=== PATIENT | male | born 1940 | race Caucasian/White ===

== ENCOUNTER 2019-11-02 15:41 | Emergency (ER) | payer MEDICARE, OTHER ==
[~2019-11-02] VITALS: Ht 170.2 cm; Wt 83.0 kg
--- OUTSIDE RECORDS SUMMARY | ~2019-11-02 | XMS | Clinical Summary ---
Demographics + + + | Address | [address] | | | [place] [address] | + + + | Home Phone | | + + + | Preferred Language | Unknown | + + + | Marital Status | | + + + | Evangelical Affiliation | 1028 | + + + | Race | Unknown | + + + | Ethnic Group | Unknown | + + + Author + + + | Author | [facility] | | | and [place] | + + + | Organization | [facility] | | | and [place] | + + + | Address | Unknown | + + + | Phone | Unavailable | + + + Support + + + + + | Name | Relationship | Address | Phone | + + + + + | Pina Momin | ECON | [address] | | | | | [place] [address] | | + + + + + Care Team Providers + +------+ + | Care Meat Wrapper Name | Role | Phone | + +------+ + | Jorge Diaz DO | PCP | | + +------+ + Allergies + + + + + + | Active Allergy | Reactions | Severity | Noted | Comments | | | | | Date | | + + + + + + | Atorvastatin | Other (See Comments) | Low | 08/10/20 | Myalgia | | | | | 17 | | + + + + + + | Desipramine | Other (See Comments) | Low | 08/10/20 | Prostadynia | | | | | 17 | | + + + + + + | Lisinopril | Other (See Comments) | Low | 08/10/20 | cough | | | | | 17 | | + + + + + + Medications + + + +---------+------+------+-------+ | Medication | Sig | Dispensed | Refills | Star | End | Statu | | | | | | t | Date | s | | | | | | Date | | | + + + +---------+------+------+-------+ | olmesartan | Take 20 mg by mouth | | 0 | | | Activ | | (BENICAR) 20 mg | Daily. | | | | | e | | tablet | | | | | | | + + + +---------+------+------+-------+ | Multiple Vitamin | Take by mouth. | | 0 | | | Activ | | (MULTI-VITAMINS PO) | | | | | | e | + + + +---------+------+------+-------+ | finasteride | Take 5 mg by mouth | | 0 | | | Activ | | (PROSCAR) 5 mg | Daily. | | | | | e | | tablet | | | | | | | + + + +---------+------+------+-------+ | omeprazole | Take 20 mg by mouth | | 0 | | | Activ | | (PRILOSEC) 20 mg | every morning | | | | | e | | capsule | (before breakfast). | | | | | | + + + +---------+------+------+-------+ | simvastatin | Take 5 mg by mouth | | 0 | | | Activ | | (ZOCOR) 5 mg tablet | nightly. | | | | | e | + + + +---------+------+------+-------+ | terazosin (HYTRIN) | Take 5 mg by mouth | | 0 | | | Activ | | 5 mg capsule | nightly. | | | | | e | + + + +---------+------+------+-------+ | sertraline | Take 100 mg by mouth | | 0 | | | Activ | | (ZOLOFT) 100 mg | Daily. | | | | | e | | tablet | | | | | | | + + + +---------+------+------+-------+ | aspirin 81 MG | Take 81 mg by mouth | | 0 | | | Activ | | tablet | Daily. | | | | | e | + + + +---------+------+------+-------+ Active Problems + + + | Problem | Noted Date | + + + | S/P lumbar fusion | 09/08/2017 | + + + | Hard of Hearing - Hearing Aids Worn | 09/07/2017 | + + + + + | Overview: hearing aids | + + + + + | H/O TEMO Total hip arthroplasty, Bilateral | 09/07/2017 | + + + | H/O Detached Retina Repair | 09/07/2017 | + + + | Scoliosis of lumbar spine | 09/07/2017 | + + + + + | Overview: Formatting of this note might be different from the | | original.RADIOGRAPHIC REVIEW:The patient's imaging was reviewed | | in detail with the patient today during the visit. The MRI of | | the lumbar spine from 05/24/17 demonstrates diffuse scoliosis with | | spondylolisthesis L4-5. Thre is spondylosis L2-3 with severe | | central stenosis. There is tethering of the cauda equina at that | | level. Lumbar flexion and extension views show spondylolisthesis | | L3-4 and L4-5.NEUROSURGICAL DIAGNOSES: Encounter Diagnoses | | Name Primary? | | Scoliosis of lumbar spine, unspecified scoliosis type Yes | | Spondylolisthesis of lumbar region | | Spinal stenosis of lumbar region, unspecified whether | | neurogenic claudication present | | Lumbar radiculopathy | | Chronic midline low back pain with bilateral sciatica | | Neurogenic claudication | | Weakness of lower extremity, unspecified laterality | | Weakness of lower extremity, unspecified laterality | + + + + + | Depression | 09/07/2017 | + + + | Risk factors for obstructive sleep apnea - Stop Bang Score 5 | 09/07/2017 | + + + | Spinal stenosis of lumbar region | | + + + | Hypertension | | + + + Family History + + +------+ + | Medical History | Relation | Name | Comments | + + +------+ + | Osteoarthritis | Brother | | | + + +------+ + | No known problems | Child | | | + + +------+ + | No known problems | Child | | | + + +------+ + | Heart disease | Father | | | + + +------+ + | High blood pressure | Father | | | + + +------+ + | Prostate cancer | Maternal | | | | | Grandfath | | | | | er | | | + + +------+ + | Dementia | Maternal | | | | | Grandmoth | | | | | er | | | + + +------+ + | Alcohol abuse | Maternal | | | | | Uncle | | | + + +------+ + | Tobacco Use | Maternal | | | | | Uncle | | | + + +------+ + | Broken bones | Mother | | Hip | + + +------+ + | Cancer | Mother | | | + + +------+ + | Mental illness | Other | | | + + +------+ + | No known problems | Paternal | | | | | Grandfath | | | | | er | | | + + +------+ + | Diabetes | Paternal | | | | | Grandmoth | | | | | er | | | + + +------+ + | Obesity | Paternal | | | | | Grandmoth | | | | | er | | | + + +------+ + | Arthritis | Sister | | | + + +------+ + | Heart disease | Sister | | | + + +------+ + | Tobacco Use | Sister | | | + + +------+ + + +------+ + + | Relation | Name | Status | Comments | + +------+ + + | Brother | | Alive | | + +------+ + + | Child | | Alive | | + +------+ + + | Child | | Alive | | + +------+ + + | Father | | | | | | | (Age | | | | | 54) | | + +------+ + + | Maternal Grandfather | | | | | | | (Age | | | | | 78) | | + +------+ + + | Maternal Grandmother | | | | + +------+ + + | Maternal Uncle | | | | + +------+ + + | Mother | | Alive | | + +------+ + + | Other | | | | + +------+ + + | Paternal Grandfather | | | | + +------+ + + | Paternal Grandmother | | | | | | | (Age | | | | | 80) | | + +------+ + + | Sister | | Alive | | + +------+ + + | Sister | | | | | | | (Age | | | | | 50) | | + +------+ + + Social History + +-------+ +--------+------+ | Tobacco Use | Types | Packs/Day | Years | Date | | | | | Used | | + +-------+ +--------+------+ | Never Smoker | | | | | + +-------+ +--------+------+ + +---+---+---+ | Smokeless Tobacco: | | | | | Never Used | | | | + +---+---+---+ + + +---------+ + | Alcohol Use | Drinks/Week | oz/Week | Comments | + + +---------+ + | Yes | 14 Glasses of wine | 14.0 | | + + +---------+ + + + + | Sex Assigned at | Date Recorded | | | | + + + | Not on file | | + + + + + + + | Job Start Date | Occupation | Industry | + + + + | Not on file | Not on file | Not on file | + + + + + + + + | Travel History | Travel Start | Travel End | + + + + + + | No recent travel history available. | + + Last Filed Vital Signs + + + + + | Vital Sign | Reading | Time Taken | Comments | + + + + + | Blood Pressure | 125/71 | 10/12/2017 10:24 AM | | | | | PST | | + + + + + | Pulse | 66 | 10/12/2017 10:24 AM | | | | | PST | | + + + + + | Temperature | 35.7 C (96.3 F) | 09/10/2017 8:07 AM | | | | | PDT | | + + + + + | Respiratory Rate | 17 | 09/10/2017 8:07 AM | | | | | PDT | | + + + + + | Oxygen Saturation | 93% | 09/10/2017 8:07 AM | | | | | PDT | | + + + + + | Inhaled Oxygen | - | - | | | Concentration | | | | + + + + + | Weight | 86.6 kg (190 lb 14.7 | 10/12/2017 10:24 AM | | | | oz) | PST | | + + + + + | Height | 172.7 cm (5' 8") | 10/12/2017 10:24 AM | | | | | PST | | + + + + + | Body Mass Index | 29.03 | 10/12/2017 10:24 AM | | | | | PST | | + + + + + Plan of Treatment + + + + + | Health Maintenance | Due Date | Last Done | Comments | + + + + + | Vaccine: | | | | | Dtap/Tdap/Td (1 - | 8 | | | | Tdap) | | | | + + + + + | Vaccine: | | | | | Pneumococcal 65+ (1 | 4 | | | | of 2 - PCV13) | | | | + + + + + | Vaccine: Zoster (2 | | 08/08/2009 | | | of 3) | 9 | | | + + + + + | Adult Annual | | | | | Wellness Visit | 5 | | | + + + + + | Vaccine: Influenza | | 08/30/2018, 08/18/2016, | | | (#1) | 9 | 08/29/2015, Additional history | | | | | exists | | + + + + + Implants + +--------+--------+ +--------+--------+--------+ | Implanted | Type | Area | Manufacture | Device | Shelf | Model | | | | | r | | Expira | / | | | | | | Identi | tion | Serial | | | | | | fier | Date | / Lot | + +--------+--------+ +--------+--------+--------+ | Imp Spn Puneet Sext Ti | Generi | Left: | [employer] - | | | [id number] | | [id number] - | c | Spine | MEDT | | | [id number] | | [id number]: Qty: 2 on | | Lumbar | | | | / | | 09/08/2017 by Ihsan Chavez | | | | | | | | DO [place] at [facility] | | | | | | | | [facility] | | | | | | | + +--------+--------+ +--------+--------+--------+ | Graft Infuse Bone Kit Xxs - | Graft | Left: | [employer] - | | 08/13/ | [id number] | | SnaImplanted: Qty: 1 on | | Spine | MEDT | | 2018 | 0 /NA | | 09/08/2017 by Ihsan Chavez | | Lumbar | | | | [id number] | | ADO at [facility] | | | | | | [id number] | | [facility] | | | | | | | + +--------+--------+ +--------+--------+--------+ | Screw Cn Mas [id number] Cc - | Screw | Left: | [employer] - | | | [id number] | | [id number]: Qty: 4 on | | Spine | MEDT | | | [id number] | | 09/08/2017 by Ihsan Chavez | | Lumbar | | | | / / | | DO [place] at [facility] | | | | | | | | [facility] | | | | | | | + +--------+--------+ +--------+--------+--------+ | Set Scrw Ns G5 Brk Off Ti | Screw | Left: | [employer] - | | | [id number] | | 4.75 - [id number]: | | Spine | MEDT | | | 0 / / | | Qty: 4 on 09/08/2017 by | | Lumbar | | | | | | Ihsan Chavez DO at [facility] | | | | | | | | [facility] | | [facility] | | | | | | | + +--------+--------+ +--------+--------+--------+ | Transcontinental | | Left: | GLOBUS | | | [id number] | | SpacerImplanted: Qty: 1 on | | Spine | MEDICAL - | | | | | 09/08/2017 by Ihsan Chavez | | Lumbar | GLBU | | | | | A, DO at [facility] | | | | | | | | [facility] | | | | | | | + +--------+--------+ +--------+--------+--------+ Results Not on filefrom Last 3 Months Insurance + +--------+ +--------+ + +--------+ | Payer | Benefi | Subscriber | Effect | Phone | Address | Type | | | t Plan | ID | bruna | | | | | | / | | Dates | | | | | | Group | | | | | | + +--------+ +--------+ + +--------+ | MEDICARE | MEDICA | [id number] | 03/14/20 | [phone] | | Medica | | | RE | | 04-Pre | 5 | | re | | | PART A | | sent | | | | | | AND B | | | | | | + +--------+ +--------+ + +--------+ | MODA | MODA | [id number] | 11/14/19 | [phone] | [address] | Indemn | | | HEALTH | | 17-Pre | 9 | [phone] | ity | | | MDCR | | sent | | [place], | | | | [place] | | | | [place] [address] | | + +--------+ +--------+ + +--------+ + +--------+ +--------+ + + | Guarantor Name | Accoun | Relation to | Date | Phone | Billing Address | | | t Type | Patient | of | | | | | | | | | | + +--------+ +--------+ + + | Raciel Momin | Person | Self | [birth year] | [address] | | | al/Fam | | 1940 | [phone] | [place] [address] | | | mariangel | | | 2 (Home) | | + +--------+ +--------+ + + Advance Directives + + + + + | Type | Date Recorded | Patient | Explanation | | | | Craft Worker | | + + + + + | Power of | | | | | Photogrammetric Surveyor | | | | + + + + + | Advance | 08/08/2017 2:46 | | @ home | | Directive | PM | | | + + + + + + + + + + | Code Status | Date | Date | Comments | | | Activated | Inactivated | | + + + + + | Full Code | 09/08/2017 | 09/10/2017 | | | | 12:27 PM | 4:07 PM | | + + + + +
--- OUTSIDE RECORDS SUMMARY | ~2019-11-02 | XMS | Encounter Summary ---
Demographics + + + | Address | [address] | | | [place] [address] | + + + | Home Phone | | + + + | Preferred Language | Unknown | + + + | Marital Status | | + + + | Adventism Affiliation | 1028 | + + + | Race | Unknown | + + + | Ethnic Group | Unknown | + + + Author + + + | Author | [facility] | | | and [place] | + + + | Organization | [facility] | | | and [place] | + + + | Address | Unknown | + + + | Phone | Unavailable | + + + Support + + + + + | Name | Relationship | Address | Phone | + + + + + | Pina Momin | ECON | [address] | | | | | [place] [address] | | + + + + + Care Team Providers + +------+ + | Care Cement Mason Name | Role | Phone | + +------+ + | Dave Franco MD | PCP | | + +------+ + Reason for Visit + + + | Reason | Comments | + + + | Back Pain | lower back pain. | + + + Evaluate & Treat (Routine) +--------+--------+ + + + + | Status | Reason | Specialty | Diagnoses / | Referred By | Referred To | | | | | Procedures | Contact | Contact | +--------+--------+ + + + + | Closed | | Neurosurgery | Diagnoses | Richard, | Kathy, | | | | | Low back | Donavan Moraes, | Ihsan Tomlin DO | | | | | pain Lower | DO [address] | [address] | | | | | extremity | [facility] | [address] | | | | | weakness | [address] | [place] | | | | | Procedures | [address], | [address] Phone: | | | | | OR OFFICE | [place] | [phone] | | | | | CONSULTATION | [address] | Fax: | | | | | NEW/ESTAB | Phone: | [phone] | | | | | PATIENT 59 | [phone] | | | | | | MIN | | | +--------+--------+ + + + + Encounter Details +--------+---------+ + + + | Date | Type | Department | Care Team | Description | +--------+---------+ + + + | 08/22/ | Office | [facility] | Ihsan Chavez, | Scoliosis of lumbar | | 2017 | Visit | NEUR[address]URGERY [address] | DO [address] | spine, unspecified | | | | [address] | [address] [place], [place] | scoliosis type | | | | [place] | [address] | (Primary Dx); | | | | [address] | | Spondylolisthesis of | | | | [phone] | | lumbar region; | | | | | | Spinal stenosis of | | | | | | lumbar region, | | | | | | unspecified whether | | | | | | neurogenic | | | | | | claudication | | | | | | present; Lumbar | | | | | | radiculopathy; | | | | | | Chronic midline low | | | | | | back pain with | | | | | | bilateral sciatica; | | | | | | Neurogenic | | | | | | claudication; | | | | | | Weakness of lower | | | | | | extremity, | | | | | | unspecified | | | | | | laterality | +--------+---------+ + + + Social History + +-------+ +--------+------+ [...] recent travel history available. | + + documented as of this encounter Last Filed Vital Signs + + + + + | Vital Sign | Reading | Time Taken | Comments | + + + + + | Blood Pressure | 133/70 | 08/22/2017 1:14 PM | | | | | PDT | | + + + + + | Pulse | 57 | 08/22/2017 1:14 PM | | | | | PDT | | + + + + + | Temperature | - | - | | + + + + + | Respiratory Rate | - | - | | + + + + + | Oxygen Saturation | - | - | | + + + + + | Inhaled Oxygen | - | - | | | Concentration | | | | + + + + + | Weight | 83.4 kg (183 lb 12.8 | 08/22/2017 1:14 PM | | | | oz) | PDT | | + + + + + | Height | 172.7 cm (5' 8") | 08/22/2017 1:14 PM | | | | | PDT | | + + + + + | Body Mass Index | 27.95 | 08/22/2017 1:14 PM | | | | | PDT | | + + + + + documented in this encounter Patient Instructions Patient Instructions Ihsan Chavez DO - 08/22/2017 1:00 PM PDTPlease follow-up with you r primary care physician for preoperative clearance. Please present for surgery when scheduled. documented in this encounter Progress Notes Ihsan Chavez DO - 08/22/2017 1:00 PM PDTFormatting of this note might be different fro m the original. Ihsan Chavez, DO [address] [place], [place] [id number] FAX: NEUROSURGERY HISTORY AND PHYSICAL EXAMINATION CHIEF COMPLAINT: Chief Complaint Patient presents with Back Pain lower back pain. HISTORY OF PRESENT ILLNESS: The patient is a 77 y.o. male with the complaint of back sympt oms that began many years ago, but is much worse over the last two months. The patient desc ribes significant difficulty walking after round-up in [place]. The symptoms have been ra pidly worsening. He rates the pain as moderate. The symptoms are intermittent. He describes the pain as ac tammy and stabbing. The patient describes leg symptoms that occur on both sides, right worse than left. The le g symptoms account for greater than or equal to 90% of his symptoms. The leg symptoms are c onstant and the symptoms travels from the back over the thigh, down the side, and down the b ack of the legs. The patient also describes difficulty walking. He can only walk 50 feet be fore having to sit and rest. A year ago he could walk as far as he wanted without restrictio ns. He says his legs feel weak and rubbery. The patient does not report any change in bowel or bladder function recently. His symptoms improve with rest. His symptoms worsen with standing, walking, bending, twisting, stairs and light exertion. He has tried lifestyle modification, pain medication, rest, physical therapy, massage, chir opractics, orthopedic evaluation. 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 CURRENT MEDICATIONS: Current Outpatient Prescriptions Medication Sig Dispense Refill aspirin 81 mg EC tablet Take 81 mg by mouth Daily. finasteride (PROSCAR) 5 mg tablet Take 5 mg by mouth Daily. Multiple Vitamin (MULTI-VITAMINS PO) Take by mouth. naproxen sodium (ALEVE) 220 MG tablet Take 220 mg by mouth Daily. olmesartan (BENICAR) 20 mg tablet Take 20 mg by mouth Daily. omeprazole (PRILOSEC) 20 mg capsule Take 20 mg by mouth every morning (before breakfast ). sertraline (ZOLOFT) 100 mg tablet Take 100 mg by mouth Daily. simvastatin (ZOCOR) 5 mg tablet Take 5 mg by mouth nightly. terazosin (HYTRIN) 5 mg capsule Take 5 mg by mouth nightly. No current facility-administered medications for this visit. ALLERGIES: Allergies Allergen Reactions Atorvastatin Other (See Comments) Myalgia Desipramine Other (See Comments) Prostadynia Lisinopril Other (See Comments) cough Simvastatin Other (See Comments) Myalgia SOCIAL HISTORY: The patient reports that he has never smoked. He has never used smokeless tobacco. He repo rts that he drinks alcohol. He reports that he does not use drugs. FAMILY HISTORY: Family History Problem Relation Age of Onset Cancer Mother Broken bones Mother Hip High blood pressure Father Heart disease Father Arthritis Sister Osteoarthritis Brother Heart disease Sister Tobacco Use Sister Dementia Maternal Grandmother Prostate cancer Maternal Grandfather Diabetes Paternal Grandmother Obesity Paternal Grandmother No Known Problems Paternal Grandfather Mental illness Other No Known Problems Child No Known Problems Child Alcohol abuse Maternal Uncle Tobacco Use Maternal Uncle REVIEW OF SYSTEMS GENERALLY: No fever, no night sweats, no anemia, no fatigue, no recent profound weight ch anges. EYES: No eye problems, + use of corrective lenses, no eye injury, no double vision, no bli ndness. EARS, NOSE, AND THROAT: No changes in taste or smell, + hearing difficulty, no ringing in the ears, no ear drainage, + dizziness, no voice changes, no difficulty swallowing, no signi ficant snoring, no sleep apnea, no sinus problems, no major dental work. NEUROLOGICALLY: Please see the review of systems discussed above in the history of present illness. In addition, the patient has weakness, coordination difficulty,change in walk,. PSYCHIATRIC: + depression, no sleep disorders, + anxiety, no bipolar disorder, no psychoti c episodes. CARDIOVASCULAR: No heart attacks, no heart murmur, no heart fluttering, no chest pain, no ankle swelling. LUNG DISEASE: No shortness of breath, no cough, no tuberculosis, no bloody cough, no asth ma, no emphysema/COPD. GASTROINTESTINAL: No bowel disease, no nausea or vomiting, no rectal bleeding, no constipa tion, no stool incontinence, no liver disease, no gallbladder disease, no abdominal pain, no ulcers. KIDNEY DISEASE: + urinary frequency, no painful or difficult urination, no incontinence. ENDOCRINE: No diabetes, no thyroid disease, no osteopenia or osteoporosis, no breast drain age. SKIN: No breast lumps, no skin changes, no rashes, no itches. HEMATOLOGIC/LYMPHATIC: No enlarged lymph nodes, no easy or unusual bleeding, no personal h istory of cancer. RHEUMATOLOGIC: + joint arthritis, no rheumatoid arthritis. PHYSICAL EXAMINATION: Blood pressure 133/70, pulse 57, height 1.727 m (5' 8"), weight 83.4 kg (183 lb 12.8 oz). B clayton mass index is 27.95 kg/m. GENERAL: Raciel Momin is in no acute distress with unlabored respirations. The patient do es appear uncomfortable throughout the exam today. HEENT: HEAD/FACE: EYES: EARS: NASOPHARNYX: OROPHARNYX: Normocephalic and atraumatic. There are no areas of recent trauma. Normal sclerae without icterus. No drainage or tenderness. Clear without drainage. Clear without erythema. NECK (ANTERIOR): Supple and without palpable masses. CHEST: Clear to ausculation without crackles or wheeze. HEART: Regular rate and rhythm without murmurs. ABDOMEN: Soft, non-tender, non-distended, and without palpable masses. The patient is notob nancy. SPINE: There is no tenderness in the midline of the cervical or thoracic spine. There is n o major palpable deformity of the spine. The lumbar spine shows there is tenderness in the midline of the L2, L3, L4, L5 levels. To palpation, there is signficant bilateral myofascial tenderness. EXTREMITIES: No cyanosis, clubbing, or edema. Distal pulses are palpable. NEUROLOGICAL EXAM: MENTAL STATUS: The patient is awake, alert, and oriented. He follows simple and complex commands. His speech is fluent, he comprehends speech well, and he repeats well. He has no apparent deficits with short or long wall shear operator memory. CRANIAL NERVES: II: Acuity is intact. Carmen are full to confrontation. III, IV, : The pupils are reactive. Extraocular movements are intact. No ptosis is note d. V: Facial sensation is intact and symmetric. VII: Facial movements are symmetric. VIII: Hearing is intact bilaterally. IX, X: The uvula and palate move appropriately. XI: Shrug is equal bilaterally. XII: Tongue protrusion is midline. MOTOR EXAM: (5 IS NORMAL) * Indicates pain limited MUSCLE/ MOVEMENT: RIGHT LEFT Deltoids 5 5 Biceps 5 5 Triceps 5 5 Wrist Flexion 5 5 Wrist Extension 5 5 Median Intrinsics 5 5 Ulnar Intrinsics 5 5 Biology Laboratory Assistant Strength 5 5 Hip Flexion 5 5 Hip Extension 5 5 Knee Flexion 5 5 Knee Extension 5 5 Dorsiflexion 4 5 Extensor Hallicus Longus 4 5 Plantarflexion 5 5 SENSORY EXAM: Sensory exam shows bilateral L4, L5 and S1-type dysesthesia, right worse than left. REFLEXES: (2 OR 2+ IS NORMAL) REFLEX: RIGHT LEFT BICEPS 2+ 2+ BRACHIORADIALIS 2+ 2+ TRICEPS 2+ 2+ PATELLAR 1+ 1+ ACHILLES 1+ 1+ SOTELO'S ABSENT ABSENT PLANTAR DOWNGOING DOWNGOING GAIT: Gait is antalgic. He is unable to toe or heel-walk. PERIPHERAL NERVE/MISC: Tinel is negative at the wrists and elbows bilaterally. Phalen is negative. Straight leg raise is negative bilaterally. Sonu's test of the hips is negative bilaterally. RADIOGRAPHIC REVIEW: The patient's imaging was reviewed in detail with the patient today during the visit. The MRI of the lumbar spine from 05/24/17 demonstrates diffuse scoliosis with spondylolisthesis L 4-5. Thre is spondylosis L2-3 with severe central stenosis. There is tethering of the cauda equina at that level. Lumbar flexion and extension views show spondylolisthesis L3-4 and L4-5. ASSESSMENT: NEUROSURGICAL DIAGNOSES: Encounter Diagnoses Name Primary? 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 The patient has scoliosis, spondylosis, and severe stenosis L2-3. This is likely contributing to his back pain, leg pain, leg weakness, and claudication. I had a lengthy discussion with the patient about his options for care including surgical a nd non-surgical options. He would like to proceed with LAIF L2-3. Given the severity of his symptoms and disease, I will obtain urgent authorization. We discussed the risks, alternatives, and benefits to surgical intervention with Mr. Momin in clinic. These risks included but were not limited to , stroke, heart attack, numbne ss, weakness, paralysis, failure of fusion, failure of hardware, subsidence, adjacent segmen t degeneration, cerebrospinal fluid leak, bleeding, infection, injury to surrounding tissues and organs, injury from positioning, injury to the nerves, difficulty with breathing, diffi culty with swallowing, difficulty with voice change, and need for additional surgery. Surgical options were discussed and the technique to be employed was described in detail to him. All his questions were answered. We discussed that the goal of the surgery is to prevent progression of his disease, but it is not considered a cure. We also discussed that although some patients may obtain 100% sym ptom relief, it is realistic to anticipate that some symptoms will continue postoperatively despite a successful surgery. We also discussed that there is no guarantee that surgery will provide improvement in his c ondition, and indeed may even worsen the symptoms. We also discussed that in the course of the procedure the operative plan may be altered to include more, less, or different levels d epending upon findings in order to provide him with the best possible outcome. I am prescribing a brace before surgery to improve his stability now to support his weak mu scles and to reduce pain by restricting mobility. He will follow-up with his primary care provider for preoperative clearance and optimizatio n prior to presenting for surgery. ELECTRONICALLY SIGNED BY: Ihsan Chavez DO, 08/22/2017 14:06 documented in this en counter Plan of Treatment Not on filedocumented as of this encounter Visit Diagnoses + + | Diagnosis | + + | Scoliosis of lumbar spine, unspecified scoliosis type - Primary | + + | Spondylolisthesis of lumbar region Acquired spondylolisthesis | + + | Spinal stenosis of lumbar region, unspecified whether neurogenic claudication present | + + | Lumbar radiculopathy Thoracic or lumbosacral neuritis or radiculitis, unspecified | + + | Chronic midline low back pain with bilateral sciatica | + + | Neurogenic claudication Spinal stenosis, lumbar region, with neurogenic claudication | + + | Weakness of lower extremity, unspecified laterality | + + documented in this encounter
--- OUTSIDE RECORDS SUMMARY | ~2019-11-02 | XMS | Clinical Summary ---
Demographics + + + | Address | [address] | | | [place] [address] | + + + | Home Phone | | + + + | Preferred Language | Unknown | + + + | Marital Status | Single | + + + | Baptist Affiliation | Unknown | + + + | Race | Unknown | + + + | Ethnic Group | Other Race | + + + Author + + + | Author | [facility]VENUE LOC[facility] | + + + | Organization | NON REVENUE LOCATIONS | + + + | Address | Unknown | + + + | Phone | Unavailable | + + + Support + + +---------+ + | Name | Relationship | Address | Phone | + + +---------+ + | None None | ECON | Unknown | Unavailable | + + +---------+ + Care Team Providers + +------+ + | Care French Tutor Name | Role | Phone | + +------+ + PCP | Unavailable | + +------+ + Source Comments TAMMIE is fully live on both [facility] and [facility] Allergies Not on File Medications Not on file Active Problems Not on file Social History + +-------+ +--------+------+ | Tobacco Use | Types | Packs/Day | Years | Date | | | | | Used | | + +-------+ +--------+------+ | Never Assessed | | | | | + +-------+ +--------+------+ + + + | Sex Assigned at [...] | + + Last Filed Vital Signs Not on file Plan of Treatment + + + + + | Health Maintenance | Due Date | Last Done | Comments | + + + + + | Pneumococcal | | | | | vaccination (1 of 2 | 4 | | | | - PCV13) | | | | + + + + + | Influenza (Flu) | | | | | vaccination (#1) | 9 | | | + + + + + Results Not on filefrom Last 3 Months [...] + +--------+ | MEDICARE | MEDICA | xxxxxxxxxx | 03/14/20 | [phone] | [address] | [address] | | | RE A & | | 04-Pre | [phone] | | | [address] | | sent | | [place] | | | | | | | | [phone] | | + +--------+ +--------+ + +--------+ + +--------+ +--------+ + + | Guarantor Name | Accoun | Relation to | Date | Phone | Billing Address | | | t Type | Patient | of | | | | | | | | | | + +--------+ +--------+ + + | Raciel Momin | Person | Self | [birth year] | [address] | | | al/Fam | | 1940 | [phone] | [place] [address] | | | mariangel | | | 2 (Home) | | + +--------+ +--------+ + +"
--- OUTSIDE RECORDS SUMMARY | ~2019-11-02 | XMS | Encounter Summary ---
Demographics + + + | Address | [address] | | | [place] [address] | + + + | Home Phone | | + + + | Preferred Language | Unknown | + + + | Marital Status | | + + + | Yarsanism Affiliation | 1028 | + + + | Race | Unknown | + + + | Ethnic Group | Unknown | + + + Author + + + | Author | [facility] | | | and [place] | + + + | Organization | [facility] | | | and [place] | + + + | Address | Unknown | + + + | Phone | Unavailable | + + + Support + + + + + | Name | Relationship | Address | Phone | + + + + + | Pina Momin | ECON | [address] | | | | | [place] [address] | | + + + + + Care Team Providers + +------+ + | Care Special Education Professional Name | Role | Phone | + +------+ + | Daev Franco MD | PCP | | + +------+ + Encounter Details +--------+ + + + + | Date | Type | Department | Care Team | Description | +--------+ + + + + | 06/26/ | Orders Only | [facility] | Ihsan Chavez, | Back pain, | | 2018 | | NEUROSURGERY [address] | DO [address] | unspecified back | | | | [address] | [address] [place], [place] | location, | | | | [place] | [address] | unspecified back | | | | [address] | | pain laterality, | | | | [phone] | | unspecified | | | | | | chronicity (Primary | | | | | | Dx) | +--------+ + + + + Social History + +-------+ [...] + + documented as of this encounter Functional Status + + + + | Functional Status | Response | Date of Assessment | + + + + | Are you deaf or do you have serious | Yes | 09/08/2017 | | difficulty hearing? | | | + + + + | Are you blind or do you have serious | No | 09/08/2017 | | difficulty seeing, even when wearing | | | | glasses? | | | + + + + | Do you have serious difficulty walking or | No | 09/08/2017 | | climbing stairs? (5 years old or older) | | | + + + + | Do you have difficulty dressing or bathing? | No | 09/08/2017 | | (5 years old or older) | | | + + + + | Because of a physical, mental, or emotional | No | 09/08/2017 | | condition, do you have difficulty doing | | | | errands alone such as visiting a doctor's | | | | office or shopping? [15 years old or | | | | older)] | | | + + + + + + + + | Cognitive Status | Response | Date of Assessment | + + + + | Because of a physical, mental, or emotional | No | 09/08/2017 | | condition, do you have serious difficulty | | | | concentrating, remembering, or making | | | | decisions? (5 years old or older) | | | + + + + documented as of this encounter Plan of Treatment Not on filedocumented as of this encounter Results XR Lumbar Spine 2 or 3 Vw (06/27/2018 9:56 AM PDT) + + | Specimen | + + | | + + + + + | Narrative | Performed At | + + + | CLINICAL INFORMATION: S/P: lumbar fusion. COMPARISON: 12/12/2017. | [facility] | | FINDINGS: AP and lateral views of the lumbosacral spine. | | | Posterior pedicle screw and oksana fusion changes at L2-L3 with stable | | | positioning of the interbody graft markers. Interval increased | | | sclerosis of the graft spacer. No evidence of hardware | | | complication. Stable lumbar alignment. Normal height of the | | | vertebral bodies. IMPRESSION - No radiographic evidence of | | | interval complication. Dictated and Signed by: Sonu Aguirre MD | | | Electronically signed: 06/27/2018 11:42 AM | | + + + + + | Procedure Note | + + | Raymond, Rad Results In - 06/27/2018 11:45 AM PDT CLINICAL INFORMATION: S/P: lumbar | | fusion.COMPARISON: 12/12/2017.FINDINGS: AP and lateral views of the lumbosacral spine. | | Posterior pedicle screw and oksana fusion changes at L2-L3 with stable positioningof the | | interbody graft markers. Interval increased sclerosis of the graftspacer. No evidence | | of hardware complication.Stable lumbar alignment. Normal height of the vertebral | | bodies.IMPRESSION - No radiographic evidence of interval complication.Dictated and | | Signed by: Sonu Aguirre MD Electronically signed: 06/27/2018 11:42 AM | |Posterior pedicle screw and oksana fusion changes at L2-L3 with stable positioning | |of the interbody graft markers. Interval increased sclerosis of the graft | |spacer. No evidence of hardware complication. | | | |Stable lumbar alignment. Normal height of the vertebral bodies. | | | |IMPRESSION - No radiographic evidence of interval complication. | | | |Dictated and Signed by: Sonu Aguirre MD | | Electronically signed: 06/27/2018 11:42 AM | + + + +---------+ + + | Performing | Address | City/State/Zipcode | Phone Number | | Organization | | | | + +---------+ + + | [facility] | | | | + +---------+ + + documented in this encounter Visit Diagnoses + + | Diagnosis | + + | Back pain, unspecified back location, unspecified back pain laterality, unspecified | | chronicity - Primary | + + documented in this encounter"
--- OUTSIDE RECORDS SUMMARY | ~2019-11-02 | XMS | Encounter Summary ---
Demographics + + + | Address | [address] | | | [place] [address] | + + + | Home Phone | | + + + | Preferred Language | Unknown | + + + | Marital Status | | + + + | Hoahaoism Affiliation | 1028 | + + + [...] + | Pina Momin | ECON | [address] | | | | | [place] [address] | | + + + + + Care Team Providers + +------+ + | Care Assistant Spa Manager Name | Role | Phone | + +------+ + | Dave Franco MD | PCP | | + +------+ + Encounter Details +--------+ + + + + | Date | Type | Department | Care Team | Description | +--------+ + + + + | 06/08/ | Imaging | [facility] | Provider, | | | 2017 | Exam | [facility] | MD [address] | | | | | IMAGING | [address] | | | | | [phone] | [place] [address] | | +--------+ + + + + Social [...] Not on filedocumented as of this encounter Procedures + +--------+ + + + | Procedure Name | Priori | Date/Time | Associated Diagnosis | Comments | | | ty | | | | + +--------+ + + + | XR HIP BILATERAL 3-4 | Routin | 05/16/2017 | | Results for this | | VIEWS | e | 3:35 PM | | procedure are in the | | | | PDT | | results section. | + +--------+ + + + documented in this encounter Results XR Hip Bilateral 3-4 Views (05/16/2017 3:35 PM PDT) + + | Specimen | + + | | + + + + + | Narrative | Performed At | + + + | External films for comparison only - no result from [facility]. | | + + + documented in this encounter Visit Diagnoses Not on filedocumented in this encounter"
--- OUTSIDE RECORDS SUMMARY | ~2019-11-02 | XMS | Encounter Summary ---
Demographics + + + | Address | [address] | | | [place] [address] | + + + | Home Phone | | + + + | Preferred Language | Unknown | + + + | Marital Status | | + + + | Islam Affiliation | 1028 | + + + | Race | Unknown | + + + | Ethnic Group | Unknown | + + + Author + + + | Author | [facility] | | | and [place] | + + + | Organization | [facility] | | | and [place] | + + + | Address | Unknown | + + + | Phone | Unavailable | + + + Support + + + + + | Name | Relationship | Address | Phone | + + + + + | Pina Momin | ECON | [address] | | | | | [place] [address] | | + + + + + Care Team Providers + +------+ + | Care Arts And Crafts Instructor Name | Role | Phone | + +------+ + | Dave Franco MD | PCP | | + +------+ + Reason for Visit +---------+ + | Reason | Comments | +---------+ + | Post Op | 4W PO | +---------+ + Encounter Details +--------+---------+ + + + | Date | Type | Department | Care Team | Description | +--------+---------+ + + + | 10/12/ | Office | [facility] | Johnny Dean, | S/P lumbar fusion | | 2017 | Visit | [address]UROSURGERY [address] | PA-C [address] | (Primary Dx) | | | | [address] | [address] [place] | | | | | [place], [place] | [place] [address] | | | | | [address] | [phone] | | | | | [phone] | | | +--------+---------+ + + + Social History [...] + + + documented in this encounter Functional Status + + + [...] + + documented as of this encounter Patient Instructions Patient Instructions Flora Shaw, Skein Spooler - 10/12/2017 10:15 AM PSTYou may now slowly increase your lifting up to 15 pounds as tolerated. You may now reach overhead but i t should only be 1-2 pounds. Please refrain from twisting for the next 8 weeks. Lastly, you will see Dr. Chavez in approximately 2 months where a new x-ray will be taken at that time. In the meantime, you can also begin to wean out of your brace as instructed below. SPINE BRACE WEANING PROTOCOL (5 WEEKS) Below are instructions for weaning your brace. You can move through the weeks slower if yo u feel the need to do so, but the overall goal is to get you out of the brace slowly over th e next several weeks. WEEK 1 If you have been using your brace for activities like sleeping, showering, do not use the b race for these activities any longer but continue using it for everything else. WEEK 2 Stop wearing your brace for sitting and short distance walking. You should use the brace f or anything more involved. WEEK 3 Stop using the brace for medium distance walking. You can bend and twist your back but sti ll proceed slowly with these activities. WEEK 4 Stop using the brace for everything but the most difficult tasks. You should now be able to go on long walks and lift more weight as directed. Add more bending and twisting as tolera wade. WEEK 5 Stop using the brace for daily use. I would encourage you to use the brace in the future f or activities that you know might aggravate your back or cause pain. You should still work to strengthen your back and use good technique when curing pickling packer things and bending. documented in this encounter Progress Notes Johnny Dean PA - 10/12/2017 10:15 AM PSTFormatting of this note might be different f rom the original. IVET Ingram [address] [facility], [address] [place], [place] [id number] FAX: NEUROSURGERY FOLLOW-UP CHIEF COMPLAINT: Chief Complaint Patient presents with Post Op 4W PO HISTORY OF PRESENT ILLNESS: The patient is a 77 y.o. male that had a L2-3 LAIF for back an d leg weakness around 4 weeks ago. He returns and overall is doing great. The patient's le g weakness has improved and back pain has diminished. The patient has been walking as much as directed and can walk about 1 mile a day. Patient was advised to take things slowly and n ot to over due activities at this point. He is not taking pain medications at this point. The patient has had no issues with his surgical site. CURRENT MEDICATIONS: Current Outpatient Prescriptions Medication Sig Dispense Refill aspirin 81 MG tablet Take 81 mg by mouth Daily. finasteride (PROSCAR) 5 mg tablet Take 5 mg by mouth Daily. Multiple Vitamin (MULTI-VITAMINS PO) Take by mouth. olmesartan (BENICAR) 20 mg tablet Take 20 [...] Comments) Prostadynia Lisinopril Other (See Comments) cough SOCIAL HISTORY: The patient reports that he has never smoked. He has never used smokeless tobacco. He repo rts that he drinks about 8.4 oz of alcohol per week . He reports that he does not use drugs. INTERIM PHYSICAL EXAMINATION: Blood pressure 125/71, pulse 66, height 1.727 m (5' 8"), weight 86.6 kg (190 lb 14.7 oz). B clayton mass index is 29.03 kg/m. GENERAL: Raciel Momin is in no acute distress with unlabored respirations. SPINE: The patient s incisions are healing well without drainage, significant erythema, o r discharge. EXTREMITIES: No lower extremity edema. NEUROLOGICAL EXAMINATION: MENTAL STATUS: The patient is awake, alert, and oriented. He follows simple and complex commands MOTOR EXAM: Motor strength is 5/5. This is improved when compared to the preoperative exam . SENSORY EXAM: The sensory examination is improved when compared to the preoperative exam. REVIEW OF SYSTEMS GENERALLY: No fever, no night sweats, no anemia, no fatigue, no recent profound weight ch anges. EYES: No eye problems, no use of corrective lenses, no eye injury, no double vision, no bl indness. EARS, NOSE, AND THROAT: No changes in taste or smell, no hearing difficulty, no ringing in the ears, no ear drainage, no dizziness, no voice changes, no difficulty swallowing, no sig nificant snoring, no sleep apnea, no sinus problems, no major dental work. PSYCHIATRIC: No depression, no sleep disorders, no anxiety, no bipolar disorder, no psycho tic episodes. CARDIOVASCULAR: No heart attacks, no heart [...] no abdominal pain, no ulcers. KIDNEY DISEASE: No urinary frequency, no painful or difficult urination, no incontinence. ENDOCRINE: No diabetes, no thyroid disease, no osteopenia or osteoporosis, no breast drain age. SKIN: No breast lumps, no skin changes, no rashes, no itches. HEMATOLOGIC/LYMPHATIC: No enlarged lymph nodes, no easy or unusual bleeding, no personal h istory of cancer. RHEUMATOLOGIC: No joint arthritis, no rheumatoid arthritis. RADIOGRAPHIC REVIEW: The patient s x-rays show stable instrumentation and alignment and were reviewed with the patient today. There have been no interval changes since the immediate postoperative films . Complete fusion has not yet occurred, but this is normal and would not be expected at thi s time. ASSESSMENT: Encounter Diagnosis Name Primary? S/P lumbar fusion Yes Past Medical History: Diagnosis Date Benign prostatic hyperplasia Cataract Depression Detached retina H/O Detached Retina Repair 09/07/2017 H/O TEMO Total hip arthroplasty, Bilateral 09/07/2017 Hard of hearing hearing aids Hypertension Osteoarthritis Prostate disease Risk factors for obstructive sleep apnea - Stop Bang Score 5 09/07/2017 Scoliosis of lumbar spine 09/07/2017 RADIOGRAPHIC REVIEW: The patient's imaging was reviewed in detail with the patient today d uring the visit. The MRI of the lumbar spine from 05/24/17 demonstrates diffuse scoliosis wi th spondylolisthesis L4-5. Thre is spondylosis L2-3 with severe central stenosis. There is t ethering of the cauda equina at that level. Lumbar flexion and extension views show spond ylolisthesis L3-4 and L4-5. NEUROSURGICAL DIAGNOSES: Encounter Diagnoses Name Primary? 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 The patient can see some improvements but continues to recover from recent surgery. I increased the patient s activities now allowing 15 pound lifting. The patient and also will begin the process of brace weaning. I would like the patient to advance slowly with t his process and discussed this at length during today's visit. I would also like the patien t to continue with postoperative rehabilitation and to advance with therapy as tolerated. emt intermediate pain medication does not appear to be needed. I am hoping to see improvement over the coming weeks to months and plan to continue to foll ow this patient. The patient will follow-up in clinic in around 8 weeks for re-evaluation. I, IVET Ingram, personally performed the services described in this documentation , as scribed by Flora Shaw CMA in my presence, and it is both accurate and complete. IVET Ingram 10/12/2017 ELECTRONICALLY SIGNED BY: IVET Ingram, 10/12/2017 13:02 documented in this encounter Plan of Treatment + +---------+--------+ + + | Name | Type | Priori | Associated Diagnoses | Order Schedule | | | | ty | | | + +---------+--------+ + + | XR Lumbar Spine 2 or | Imaging | Routin | S/P lumbar fusion | Expected: 01/10/2018 | | 3 Vw | | e | | (Approximate), | | | | | | Expires: 10/11/2018 | + +---------+--------+ + + documented as of this encounter Visit Diagnoses + + | Diagnosis | + + | S/P lumbar fusion - Primary Arthrodesis status | + + documented in this encounter
--- OUTSIDE RECORDS SUMMARY | ~2019-11-02 | XMS | Encounter Summary ---
Demographics + + + | Address | [address] | | | [place] [address] | + + + | Home Phone | | + + + | Preferred Language | Unknown | + + + | Marital Status | | + + + | Zoroastrian Affiliation | 1028 | + + + | Race | Unknown | + + + | Ethnic Group | Unknown | + + + Author + + + | Author | [facility] | | | and [place] | + + + | Organization | [facility] | | | and [place] | + + + | Address | Unknown | + + + | Phone | Unavailable | + + + Support + + + + + | Name | Relationship | Address | Phone | + + + + + | Pina Momin | ECON | [address] | | | | | [place] [address] | | + + + + + Care Team Providers + +------+ + | Care Records Custodian Name | Role | Phone | + +------+ + | Dave Franco MD | PCP | | + +------+ + Encounter Details +--------+ + + + + | Date | Type | Department | Care Team | Description | +--------+ + + + + | 12/23/ | Imaging | [facility] | Provider, | | | 2018 | Exam | [facility] | MD [address] | | | | | IMAGING | [address] | | | | | [phone] | [place] [address] | | +--------+ + + + + [...] + +--------+ + + + | XR LUMBAR SPINE 2 OR | Routin | 12/12/2017 | | Results for this | | 3 VW | e | 10:10 AM | | procedure are in the | | | | PST | | results section. | + +--------+ + + + documented in this encounter Results XR Lumbar Spine 2 or 3 Vw (12/12/2017 10:10 AM PST) + + | Specimen | + + | | + + + + + | Narrative | Performed At | + + + | External films for comparison only - no result from [place]. | [facility] | + + + + +---------+ + + | Performing | Address | City/State/Zipcode | Phone Number | | Organization | | | | + +---------+ + + | [facility] | | | | + +---------+ + + documented in this encounter Visit Diagnoses Not on filedocumented in this encounter"
--- OUTSIDE RECORDS SUMMARY | ~2019-11-02 | XMS | Encounter Summary ---
Demographics + + + | Address | [address] | | | [place] [address] | + + + | Home Phone | | + + + | Preferred Language | Unknown | + + + | Marital Status | | + + + | Jainism Affiliation | 1028 | + + + | Race | Unknown | + + + | Ethnic Group | Unknown | + + + Author + + + | Author | [facility] | | | and [place] | + + + | Organization | [facility] | | | and [place] | + + + | Address | Unknown | + + + | Phone | Unavailable | + + + Support + + + + + | Name | Relationship | Address | Phone | + + + + + | Pina Momin | ECON | [address] | | | | | [place] [address] | | + + + + + Care Team Providers + +------+ + | Care Chief Solution Architect Name | Role | Phone | + +------+ + | Dave Franco MD | PCP | | + +------+ + Encounter Details +--------+ + + + + | Date | Type | Department | Care Team | Description | +--------+ + + + + | 08/22/ | Orders Only | [facility] | Ihsan Chavez, | Spinal stenosis of | | 2017 | | NEUROSURGERY [address] | DO [address] | lumbar region, | | | | [address] | [address] [place], [place] | unspecified whether | | | | [place] | [address] | neurogenic | | | | [address] | | claudication | | | | [phone] | | present; | | | | | | Hypertension, | | | | | | unspecified type | +--------+ + + + + Social [...] on filedocumented as of this encounter Results CBC with Differential (08/22/2017 2:54 PM PDT) + + + + + + | Component | Value | Ref Range | Performed | Pathologist | | | | | At | Signature | + + + + + + | WBC | 6.6 | 4.0 - 11.0 K/uL | [facility] | | | | | | [facility] | | | | | | [facility] | | | | | [facility] - | | | | | | LAB[facility]ATORY | | + + + + + + | RBC | 4.56 | 4.30 - 5.70 | [facility] | | | | | M/uL | [facility] | | | | | | [facility] | | | | | | [facility] - | | | | | | LABORATORY | | + + + + + + | Hemoglobin | 14.6 | 13.5 - 18.0 | [facility] | | | | | g/dL | [facility] | | | | | | [facility] | | | | | | [facility] - | | | | | | LABORATORY | | + + + + + + | Hematocrit | 42.0 | 40.0 - 51.0 % | [facility] | | | | | | [facility] | | | | | | [facility] | | | | | | [facility] - | | | | | | LABORATORY | | + + + + + + | MCV | 92.0 | 83.0 - 101.0 fL | [facility] | | | | | | [facility] | | | | | | [facility] | | | | | | [facility] - | | | | | | LABORATORY | | + + + + + + | MCH | 32.1 | 28.0 - 35.0 pg | [facility] | | | | | | [facility] | | | | | | [facility] | | | | | | [facility] - | | | | | | LABORATORY | | + + + + + + | MCHC | 34.9 | 32.0 - 36.0 | [facility] | | | | | g/dL | [facility] | | | | | | [facility] | | | | | | [facility] - | | | | | | LABORATORY | | + + + + + + | RDW-CV | 13.4 | <15.0 % | [facility] | | | | | | [facility] | | | | | | [facility] | | | | | | [facility] - | | | | | | LABORATORY | | + + + + + + | Platelet | 185 | 140 - 440 K/uL | [facility] | | | Count | | | [facility] | | | | | | [facility] | | | | | | [facility] - | | | | | | LABORATORY | | + + + + + + | MPV | 7.7 | fL | [facility] | | | | | | [facility] | | | | | | [facility] | | | | | | [facility] - | | | | | | LABORATORY | | + + + + + + | % | 69.7 | 45.0 - 82.0 % | [facility] | | | Neutrophils | | | [facility] | | | | | | [facility] | | | | | | [facility] - | | | | | | LABORATORY | | + + + + + + | % | 19.6 (L) | 20.0 - 45.0 % | [facility] | | | Lymphocytes | | | [facility] | | | | | | [facility] | | | | | | [facility] - | | | | | | LABORATORY | | + + + + + + | % Monocytes | 8.4 | 4.0 - 12.0 % | [facility] | | | | | | [facility] | | | | | | [facility] | | | | | | [facility] - | | | | | | LABORATORY | | + + + + + + | % | 1.7 | 0.0 - 5.0 % | [facility] | | | Eosinophils | | | [facility] | | | | | | [facility] | | | | | | [facility] - | | | | | | LABORATORY | | + + + + + + | % Basophils | 0.6 | 0.0 - 1.0 % | [facility] | | | | | | [facility] | | | | | | [facility] | | | | | | [facility] - | | | | | | LABORATORY | | + + + + + + | Absolute | 4.60 | 1.80 - 8.50 | [facility] | | | Neutrophils | | K/uL | [facility] | | | | | | [facility] | | | | | | C[facility] - | | | | | | LABORATORY | | + + + + + + | Absolute | 1.30 | 0.60 - 3.20 | [facility] | | | Lymphocytes | | K/uL | [facility] | | | | | | [facility] | | | | | | C[facility] - | | | | | | LABORATORY | | + + + + + + | Absolute | 0.60 | 0.00 - 1.00 | [facility] | | | Monocytes | | K/uL | [facility] | | | | | | [facility] | | | | | | [facility] - | | | | | | LABORATORY | | + + + + + + | Absolute | 0.10 | 0.00 - 0.40 | [facility] | | | Eosinophils | | K/uL | [facility] | | | | | | [facility] | | | | | | [facility] - | | | | | | LABORATORY | | + + + + + + | Absolute | 0.00 | 0.00 - 0.10 | [facility] | | | Basophils | | K/uL | [facility] | | | | | | [facility] | | | | | | [facility] - | | | | | | LABORATORY | | + + + + + + + + | Specimen | + + | Blood | + + + + + + + | Performing | Address | City/State/Zipcode | Phone Number | | Organization | | | | + + + + + | [facility] | [address] | [place] | [phone] | | [facility] | | [address] | | | - LABORATORY | | | | + + + + + ECG 12 lead (08/22/2017 2:46 PM PDT) + + + + + + | Component | Value | Ref Range | Performed | Pathologist | | | | | At | Signature | + + + + + + | VENTRICULAR | 61 | BPM | [facility] | | | RATE EKG | | | | | + + + + + + | ATRIAL RATE | 61 | BPM | [facility] | | + + + + + + | P-R | 182 | ms | [facility] | | | INTERVAL | | | | | + + + + + + | QRS | 108 | ms | [facility] | | | DURATION | | | | | + + + + + + | Q-T | 430 | ms | [facility] | | | INTERVAL | | | | | + + + + + + | Q-T | 432 | ms | [facility] | | | INTERVAL | | | | | | (CORRECTED) | | | | | + + + + + + | P WAVE AXIS | 45 | degrees | [facility] | | + + + + + + | QRS AXIS | -22 | degrees | [facility] | | + + + + + + | T AXIS | 40 | degrees | [facility] | | + + + + + + | INTERPRETAT | Normal sinus | | [facility] | | | ION TEXT | rhythmNormal ECGNo | | | | | | previous ECGs | | | | | | availableConfirmed by | | | | | | JEANNIE LAUREN MD ([id number]) | | | | | | on 08/23/2017 7:00:17 AM | | | | | | | | | | + + + + + + + + | Specimen | + + | | + + + + + | Narrative | Performed At | + + + | | | + + + + +---------+ + + | Performing | Address | City/State/Zipcode | Phone Number | | Organization | | | | + +---------+ + + | [facility] | | | | + +---------+ + + documented in this encounter Visit Diagnoses + + | Diagnosis | + + | Spinal stenosis of lumbar region, unspecified whether neurogenic claudication present | + + | Hypertension, unspecified type | + + documented in this encounter"
--- OUTSIDE RECORDS SUMMARY | ~2019-11-02 | XMS | Encounter Summary ---
Demographics + + + | Address | [address] | | | [place] [address] | + + + | Home Phone | | + + + | Preferred Language | Unknown | + + + | Marital Status | | + + + | Pentecostal Affiliation | 1028 | + + + | Race | Unknown | + + + | Ethnic Group | Unknown | + + + Author + + + | Author | [facility] | | | and [place] | + + + | Organization | [facility] | | | and [place] | + + + | Address | Unknown | + + + | Phone | Unavailable | + + + Support + + + + + | Name | Relationship | Address | Phone | + + + + + | Pina Momin | ECON | [address] | | | | | [place] [address] | | + + + + + Care Team Providers + +------+ + | Care Medical Information Officer Name | Role | Phone | + [...] + + | 10/12/ | Office | [facility] | Johnny Dean, | S/P lumbar fusion | | 2017 | Visit | [address]UR[address]URGERY [address] | PA-C [address] | (Primary Dx) | | | | [address] | [address] [place] | | | | | [place], [place] | [place] [address] | | | | | [address] | [phone] | | | | | [phone] | | | +--------+---------+ + + + [...] encounter Patient Instructions Patient Instructions Flora Shaw, Furniture Detailer - 10/12/2017 10:15 AM PSTYou may now [...] your back and use good technique when burr picker things and bending. documented in this encounter Progress Notes Johnny Dean PA - 10/12/2017 10:15 AM PSTFormatting of this note might be different f rom the original. IVET Ingram [address] [facility], [address] [place], [place] [id number] FAX: NEUROSURGERY FOLLOW-UP CHIEF COMPLAINT: Chief Complaint [...] and to advance with therapy as tolerated. 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
--- OUTSIDE RECORDS SUMMARY | ~2019-11-02 | XMS | Encounter Summary ---
Demographics + + + | Address | [address] | | | [place] [address] | + + + | Home Phone | | + + + | Preferred Language | Unknown | + + + | Marital Status | | + + + | Mormon Affiliation | 1028 | + + + | Race | Unknown | + + + | Ethnic Group | Unknown | + + + Author + + + | Author | Merged With [facility] | | | and [place] | + + + | Organization | Merged With [facility] | | | and [place] | + + + | Address | Unknown | + + + | Phone | Unavailable | + + + Support + + + + + | Name | Relationship | Address | Phone | + + + + + | Pina Momin | ECON | [address] | | | | | [place] [address] | | + + + + + Care Team Providers + +------+ + | Care Divinity Teacher Name | Role | Phone | + +------+ + | Dave Franco MD | PCP | | + +------+ + Reason for Referral Evaluate & Treat (Routine) +--------+ + + + + + | Status | Reason | Specialty | Diagnoses / | Referred By | Referred To | | | | | Procedures | Contact | Contact | +--------+ + + + + + | Closed | Specialty | Home Health | Diagnoses | Kathy | | | | Services | Services | S/P lumbar | Ihsan Tomlin, | | | | Required | | fusion | [address] | | | | | | Spinal | [address] | | | | | | stenosis of | [place] | | | | | | lumbar | [address] | | | | | | region, | Phone: | | | | | | unspecified | [phone] | | | | | | whether | Fax: | | | | | | neurogenic | [phone] | | | | | | claudication | | | | | | | present | | | +--------+ + + + + + Reason for Visit Auth/Cert +--------+--------+ + + + + | Status | Reason | Specialty | Diagnoses / | Referred By | Referred To | | | | | Procedures | Contact | Contact | +--------+--------+ + + + + | | | | Diagnoses | | | | | | | | | | | | | | Kyphoscolios | | | | | | | is (M41.9), | | | | | | | 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 | | | | | | | region | | | | | | | (M43.16), | | | | | | | Spinal | | | | | | | stenosis, | | | | | | | lumbar | | | | | | | region, | | | | | | | without | | | | | | | neurogenic | | | | | | | claudication | | | | | | | (M48.061), | | | | | | | Lumbar | | | | | | | radiculopath | | | | | | | y (M54.16), | | | | | | | Acute back | | | | | | | pain with | | | | | | | sciatica, | | | | | | | right | | | | | | | (M54.41), | | | | | | | Weakness of | | | | | | | lower | | | | | | | extremity, | | | | | | | unspecified | | | | | | | laterality | | | | | | | (R29.898) | | | | | | | Procedures | | | | | | | MI | | | | | | | ARTHRODESIS | | | | | | | POSTERIOR/PO | | | | | | | STEROLATERAL | | | | | | | LUMBAR MI | | | | | | | LUMBAR SPINE | | | | | | | | | | | | | | FUSION,ANTER | | | | | | | APPRCH MI | | | | | | | INSJ BIOMCHN | | | | | | | DEV | | | | | | | INTERVERTEBR | | | | | | | AL DSC SPC | | | | | | | W/ARTHRD | | | | | | | POSTERIOR | | | | | | | NON-SEGMENTA | | | | | | | L | | | | | | | INSTRUMENTAT | | | | | | | ION MI | | | | | | | STEREOTACTIC | | | | | | | COMP ASSIST | | | | | | | PROC,SPINAL | | | | | | | L2-3 LAIF | | | +--------+--------+ + + + + Encounter Details +--------+ + + + + | Date | Type | Department | Care Team | Description | +--------+ + + + + | 09/08/ | Hospital | [facility] | Ihsan Chavez, | S/P lumbar fusion | | 2017 - | Encounter | [facility] | DO [address] | (Primary Dx); Spinal | | | | [address] | [address] | stenosis of lumbar | | 09/10/ | | [place] [address] | [address] | region, unspecified | | 2017 | | [phone] | | whether neurogenic | | | | | | claudication present | +--------+ + + + + Social [...] + + + | Blood Pressure | 136/66 | 09/10/2017 8:07 AM | | | | | PDT | | + + + + + | Pulse | 68 | 09/10/2017 8:07 AM | | | [...] + + + + | Weight | 86.8 kg (191 lb 5.8 | 09/08/2017 12:25 PM | | | | oz) | PDT | | + + + + + | Height | 172.7 cm (5' 8") | 09/08/2017 12:25 PM | | | | | PDT | | + + + + + | Body Mass Index | 29.1 | 09/08/2017 12:25 PM | | | | | PDT [...] + + documented as of this encounter Discharge Summaries Ihsan Chavez DO - 09/10/2017 7:21 AM PDTFormatting of this note might be different fro m the original. DISCHARGE SUMMARY Pt. Name/Age/: Raciel Momin 77 y.o. 1940 Date of Admission: 09/08/2017 Date of Discharge: 09/10/2017 Admitting Physician: Ihsan Chavez DO PCP: Dave Franco Discharging Physician: Ihsan Chavez DO Primary Discharge Dx: Idiopathic scoliosis of lumbar spine Secondary Discharge Dx: Patient Active Problem List Diagnosis Spinal stenosis of lumbar region Hypertension Hard of Hearing - Hearing Aids Worn H/O TEMO Total hip arthroplasty, Bilateral H/O Detached Retina Repair Scoliosis of lumbar spine Depression Risk factors for obstructive sleep apnea - Stop Bang Score 5 S/P lumbar fusion Reason for Admission (Brief): The patient is a 77 y.o.malewith the complaint of back symptoms that began many years ago, but is much worse over the last two months. The patie nt describes significant difficulty walking after round-up in [place]. The symptoms have been rapidly worsening. Herates the pain as moderate.The symptoms are intermittent. Hedescribes the pain as aching and stabbing. The patient describes leg symptoms that occur on both sides, right worse than left. The l eg symptoms account for greater than or equal to 90%of hissymptoms. The leg symptoms a re constantand the symptoms travels from the back over the thigh, down the side, and down the back of the legs.The patient also describes difficulty walking. He can only walk 50 feet before having to sit and rest. A year ago he could walk as far as he wanted without res trictions.He says his legs feel weak and rubbery. Hospital Course, including Complications: On the day of admission the patient was admitted to [facility] and underwent a L2-L3 fusion. Patient was transferred to PACU and then to the neurosurgical floor. In brief, the hospital stay was uncomplicated, the patient mobilized well with physical therapy and occup ational therapy. There were no cardiac issues, pulmonary issues, evidence of DVT or infecti on. Appropriate discharge plans were made in line with his progress and mobility and he was ultimately discharged to home. Medications Reconciled upon Discharge are: Discharge Medications New Medications Details HYDROcodone-acetaminophen 10-325 mg per tablet Take 1-2 tablets by mouth every 4 hours as needed for Pain. aka: NORCO lactulose 10 g/15 mL liquid Take 15-30 mLs by mouth Daily as needed for Constipation. methocarbamol 750 mg tablet Take 1 tablet by mouth every 6 hours. aka: ROBAXIN Unchanged Medications Details BENICAR 20 mg tablet Generic drug: olmesartan Take 20 mg by mouth Daily. finasteride 5 mg tablet Take 5 mg by mouth Daily. aka: PROSCAR MULTI-VITAMINS PO Take by mouth. PRILOSEC 20 mg capsule Generic drug: omeprazole Take 20 mg by mouth every morning (before breakfast). simvastatin 5 mg tablet Take 5 mg by mouth nightly. aka: ZOCOR terazosin 5 mg capsule Take 5 mg by mouth nightly. aka: HYTRIN ZOLOFT 100 mg tablet Generic drug: sertraline Take 100 mg by mouth Daily. Discontinued Medications ALEVE 220 MG tablet Generic drug: naproxen sodium aspirin 81 mg EC tablet Condition on Discharge: Stable Disposition: Patient was discharged to home Follow-Up Plans: Follow-up with: Dr. Chavez's office in 4 weeks Follow-up with primary care physician as needed. Diet: Resume regular diet Activity: Continue to follow guidelines and precautions as previously discussed. Brace: B Electronically signed by: Ihsan Chavez, 09/10/2017 7:52 [facility] documented in this en counter Discharge Instructions Instructions Johnny Dean PA - 09/10/2017Discharge Instructions for Lumbar Fusion You had a lumbar fusion. During this procedure, your doctor locked together (fused) some of the bones in your spine. This limits the movement of these bones to help relieve your pain. Here s what you need to know about home care following a spinal fusion. Activity Arrange your household to keep the items you need within reach. Remove electrical cords, throw rugs, and anything else that may cause you to fall. Use a walkeror handrails until your balance, flexibility, and strength improve. And re member to ask for help from others when you need it. Free up your hands so that you can use them to keep balance. Use a shaunna pack, apron, or pockets to carry things. Be sure not to carry too much at once. Don t bend or twist at the waist, or raise your hands over your head for the first two weeks after your surgery. Don t lift anything heavier than 5 pounds for the first four weeks after surgery. Don t sit for more than30 to 45 minutes at a time. Take frequent short walks. They a re the gold to your recovery. As your back feels better please gradually increase the distanc e you walk as discussed with your provider. Don t drive until your doctor says it s OK. And never drive while you are taking opi oid pain medication. Nap if you are tired, but don t stay in bed all day. Use chairs with arms. The arms make it easier for you to stand up and sit down. If you have not yet received instructions about physical therapy, ask your doctor about them. Incision care Check your incision daily for redness, tenderness, or drainage. Don t soak your wound in water (no hot tubs, bathtubs, swimming pools) until your doct or says it s OK. As long as you keep your incision dry you can shower as desired. After 5 days you may le t shower water run over the incision but do not submerse the incision under water until afte r you see your provider. Gently pat the incision dry. Don t rub it, or apply creams or lot ions. And if you feel unsteady while standing to shower, use a shower stool or chair. Other home care Use nonslip bath mats, grab bars, an elevated toilet seat, and a shower chair in your [facility]. Take your medication exactly as directed. Don t take nonsteroidal anti-inflammatory medications (NSAIDs), such as ibuprofen. The y may delay or prevent proper fusion of the spine. If you smoke, stop! This will be one of the most important things you can do to help you recover from surgery. Wear your back brace, if one was prescribed, as directed by your doctor. Follow-up Most patients will be seen approximately 4 weeks after surgery. Be sure to get your 1 mo nth post op x-rays prior to your 1 month post op appointment before your appointment. [id number] [employer] [place] [address], [place] [address]. All righ ts reserved. This information is not intended as a substitute for professional medical care. Always follow your healthcare professional's instructions. documented in this encounter Medications at Time of Discharge + + + +---------+ + + | Medication | Sig | Dispensed | Refills | Start | End Date | | | | | | Date | | + + + +---------+ + + | finasteride | Take 5 mg by mouth | | 0 | | | | (PROSCAR) 5 mg | Daily. | | | | | | tablet | | | | | | + + + +---------+ + + | Multiple Vitamin | Take by mouth. | | 0 | | | | (MULTI-VITAMINS PO) | | | | | | + + + +---------+ + + | olmesartan | Take 20 mg by mouth | | 0 | | | | (BENICAR) 20 mg | Daily. | | | | | | tablet | | | | | | + + + +---------+ + + | omeprazole | Take 20 mg by mouth | | 0 | | | | (PRILOSEC) 20 mg | every morning | | | | | | capsule | (before breakfast). | | | | | + + + +---------+ + + | sertraline | Take 100 mg by mouth | | 0 | | | | (ZOLOFT) 100 mg | Daily. | | | | | | tablet | | | | | | + + + +---------+ + + | simvastatin | Take 5 mg by mouth | | 0 | | | | (ZOCOR) 5 mg tablet | nightly. | | | | | + + + +---------+ + + | terazosin (HYTRIN) | Take 5 mg by mouth | | 0 | | | | 5 mg capsule | nightly. | | | | | + + + +---------+ + + | | Take 1-2 tablets by | 120 | 0 | 09/10/20 | | | HYDROcodone-acetamin | mouth every 4 hours | tablet | | 17 | 7 | | ophen (NORCO) 10-325 | as needed for Pain. | | | | | | mg per tablet | | | | | | + + + +---------+ + + | lactulose 10 g/15 | Take 15-30 mLs by | 240 mL | 2 | 09/10/20 | | | mL liquid | mouth Daily as | | | 17 | 7 | | | needed for | | | | | | | Constipation. | | | | | + + + +---------+ + + | methocarbamol | Take 1 tablet by | 90 | 1 | 09/10/20 | | | (ROBAXIN) 750 mg | mouth every 6 hours. | tablet | | 17 | 7 | | tablet | | | | | | + + + +---------+ + + documented as of this encounter Progress Notes Johnny Dean PA - 09/10/2017 7:23 AM PDTFormatting of this note might be different f rom the original. [facility] NEUROSURGERY PROGRESS NOTE PATIENT NAME: Raciel Momin AGE: 77 y.o. DATE OF SERVICE: 09/10/2017 7:23 S: The patient c/o manageable back pain. The patient has been mobilizing well. The leg sy mptoms are at improved from preoperatively. The patient has been voiding and is passing flatus. O: CURRENT MEDICATIONS: Current Facility-Administered Medications Medication Dose Route Frequency Provider Last Rate Last Dose acetaminophen (TYLENOL) tablet 650 mg 650 mg Oral Q4H PRN IVET Horn bisacodyl (DULCOLAX) suppository 10 mg 10 mg Rectal Daily PRN IVET Horn calcium carbonate (TUMS) chewable tablet 1,000 mg 1,000 mg Oral Q2H PRN IVET Bernardo diazePAM (VALIUM) injection 2.5-5 mg 2.5-5 mg Intravenous Q6H PRN IVET Horn diazePAM (VALIUM) tablet 5 mg 5 mg Oral Q6H PRN IVET Horn 5 mg at 7 0927 diphenhydrAMINE (BENADRYL) injection 12.5 mg 12.5 mg Intravenous Q4H PRN IVET Russell Or diphenhydrAMINE (BENADRYL) tablet 25 mg 25 mg Oral Q4H PRN IVET Horn Or diphenhydrAMINE (BENADRYL) 12.5 mg/5 mL liquid 25 mg 25 mg Oral Q4H PRN IVET Bernardo docusate sodium (COLACE) capsule 100 mg 100 mg Oral BID IVET Horn 100 mg at 09/09/172025 finasteride (PROSCAR) tablet 5 mg 5 mg Oral Daily IVET Horn 5 mg at 09/09 HYDROcodone-acetaminophen (NORCO) 10-325 mg per tablet 1-2 tablet 1-2 tablet Oral Q4H PRN IVET Horn 2 tablet at 09/10/17 06 labetalol (TRANDATE) 5 mg/mL injection 10 mg 10 mg Intravenous Q10 Min PRN IVET Gomez lactulose liquid 30 mL 30 mL Oral Daily PRN IVET Horn losartan (COZAAR) tablet 100 mg 100 mg Oral Daily IVET Horn 100 mg at 926 magnesium hydroxide (MILK OF MAGNESIA) 400 mg/5 mL suspension 30 mL 30 mL Oral BID PRN IVET Horn menthol (HALLS COUGH DROP) lozenge 1 lozenge 1 lozenge Buccal Q2H PRN IVET Horn methocarbamol (ROBAXIN) tablet 750 mg 750 mg Oral Q8H PRN IVET Horn metoclopramide (REGLAN) tablet 10 mg 10 mg Oral Q4H PRN IVET Horn morphine injection 2-6 mg 2-6 mg Intravenous Q4H PRN IVET Horn ondansetron (ZOFRAN ODT) disintegrating tablet 4 mg 4 mg Oral Q6H PRN IVET Horn ondansetron (ZOFRAN) injection 4 mg 4 mg Intravenous Q6H PRN IVET Horn pantoprazole (PROTONIX) DR tablet 40 mg 40 mg Oral QAM AC IVET Horn 40 mg at 09/10/17 0651 phenol (CHLORASEPTIC) spray 1-2 spray 1-2 spray Mouth/Throat Q3H PRN IVET Horn polyethylene glycol (MIRALAX) powder 17 g 17 g Oral Daily Johnny Dean PA 17 g at 09/09/17 0927 prochlorperazine (COMPAZINE) tablet 5 mg 5 mg Oral Q6H PRN IVET Horn senna (SENOKOT) tablet 8.6 mg 8.6 mg Oral BID IVET Horn 8.6 mg at 7 2026 sertraline (ZOLOFT) tablet 100 mg 100 mg Oral Daily Johnny Dean PA 100 mg at 1 0927 sodium chloride 0.9% (NS) infusion Intravenous Continuous IVET Horn 50 mL/ hr at 09/08/17 160 terazosin (HYTRIN) capsule 5 mg 5 mg Oral Nightly IVET Horn 5 mg at 09/09 ALLERGIES: Allergies Allergen Reactions Atorvastatin Other (See Comments) Myalgia Desipramine Other (See Comments) Prostadynia Lisinopril Other (See Comments) cough PHYSICAL EXAMINATION: Temp: [36.6 C (97.9 F)-37.1 C (98.8 F)] 37.1 C (98.8 F) Pulse: [58-74] 74 Resp: [17-18] 18 BP: (119-150)/(57-76) 150/76 Intake/Output Summary (Last 24 hours) at 09/10/17 0723 Last data filed at 09/10/17 0645 Gross per 24 hour Intake 1510 ml Output 2153 ml Net -643 ml GENERAL: Raciel Momin is in no acute distress with unlabored respirations. HEENT: HEAD/FACE: EYES: Normocephalic and atraumatic. There are no areas of recent trauma. Normal sclerae without icterus. CHEST: Clear. HEART: Regular. EXTREMITIES: No edema or swelling. SCD's BACK: The back incisions are dress and a drain is in place with expected output. NEUROLOGICAL EXAM: MENTAL STATUS: The patient is awake, alert, and oriented. He follows simple and complex commands. He speech is fluent, his comprehends speech well, and his repeats well. He has no apparent deficits with short or nursing home memory. MOTOR EXAM: Motor strength is improved SENSORY EXAM: Sensory exam is improved 24 HOUR LABS: All Component Based Labs None ASSESSMENT: NEUROSURGICAL DIAGNOSES: S/p lumbar fusion HOSPITAL/GENERAL DIAGNOSES: Past Medical History: Diagnosis Date Benign [...] ity Spinal stenosis of lumbar region PLAN: S/p lumbar fusion, Hospital day 2 - Neurologically stable and pain control is appropriate. - Medically stable - Mobilize, PT/OT - SCD's - Patient is having adequate bowel function without any concerns. They were counseled that full bowel function may not return for a few days - Drain output is low and it can be removed now - Disp: Home today with routine follow-up ELECTRONICALLY SIGNED BY: IVET Ingram, 09/10/2017 7:23 Jose Ramon Tong PA-C - 09/09/2017 7:49 AM PDTFormatting of this note might be different from the origin [facility] NEUROSURGERY PROGRESS NOTE PATIENT NAME: Raciel Momin AGE: 77 y.o. DATE OF SERVICE: 09/09/2017 7:49 S: The patient is doing well this AM. He complains of mild pain in the low back, under cont rol with medicine. Slept well and eating breakfast. Voiding well. Passing some flatus. Has n ot mobilized much yet. O: CURRENT MEDICATIONS: Current Facility-Administered Medications Medication Dose Route Frequency Provider Last Rate Last Dose acetaminophen (TYLENOL) tablet 650 mg 650 mg Oral Q4H PRN IVET Horn bisacodyl (DULCOLAX) suppository 10 mg 10 mg Rectal Daily PRN IVET Horn calcium carbonate (TUMS) chewable tablet 1,000 mg 1,000 mg Oral Q2H PRN IVET Bernardo diazePAM (VALIUM) injection 2.5-5 mg 2.5-5 mg Intravenous Q6H PRN IVET Horn diazePAM (VALIUM) tablet 5 mg 5 mg Oral Q6H PRN IVET Horn diphenhydrAMINE (BENADRYL) injection 12.5 mg 12.5 mg Intravenous Q4H PRN IVET Russell Or diphenhydrAMINE (BENADRYL) tablet 25 mg 25 mg Oral Q4H PRN IVET Horn Or diphenhydrAMINE (BENADRYL) 12.5 mg/5 mL liquid 25 mg 25 mg Oral Q4H PRN IVET Bernardo docusate sodium (COLACE) capsule 100 mg 100 mg Oral BID IVET Horn 100 mg at 09/08/17 2101 finasteride (PROSCAR) tablet 5 mg 5 mg Oral Daily IVET Horn HYDROcodone-acetaminophen (NORCO) 10-325 mg per tablet 1-2 tablet 1-2 tablet Oral Q4H PRN IVET Horn 1 tablet at 09/09/17 0428 labetalol (TRANDATE) 5 mg/mL injection 10 mg 10 mg Intravenous Q10 Min PRN IVET Gomez lactulose liquid 30 mL 30 mL Oral Daily PRN IVET Horn losartan (COZAAR) tablet 100 mg 100 mg Oral Daily IVET Horn 100 mg at 1601 magnesium hydroxide (MILK OF MAGNESIA) 400 mg/5 mL suspension 30 mL 30 mL Oral BID PRN IVET Horn menthol (HALLS COUGH DROP) lozenge 1 lozenge 1 lozenge Buccal Q2H PRN IVET Horn methocarbamol (ROBAXIN) 750 mg in sodium chloride 0.9% 100 mL IVPB 750 mg Intravenous Q8H IVET Horn 143.3 mL/hr at 09/09/17 0207 750 mg at 09/09/17 0207 methocarbamol (ROBAXIN) tablet 750 mg 750 mg Oral Q8H PRN IVET Horn metoclopramide (REGLAN) tablet 10 mg 10 mg Oral Q4H PRN IVET Horn morphine injection 2-6 mg 2-6 mg Intravenous Q4H PRN IVET Horn ondansetron (ZOFRAN ODT) disintegrating tablet 4 mg 4 mg Oral Q6H PRN IVET Horn ondansetron (ZOFRAN) injection 4 mg 4 mg Intravenous Q6H PRN IVET Horn pantoprazole (PROTONIX) DR tablet 40 mg 40 mg Oral QAM AC IVET Horn 40 mg at 09/09/17 0642 phenol (CHLORASEPTIC) spray 1-2 spray 1-2 spray Mouth/Throat Q3H PRN IVET Horn polyethylene glycol (MIRALAX) powder 17 g 17 g Oral Daily IVET Horn prochlorperazine (COMPAZINE) tablet 5 mg 5 mg Oral Q6H PRN IVET Horn senna (SENOKOT) tablet 8.6 mg 8.6 mg Oral BID IVET Horn 8.6 mg at 7 2100 sertraline (ZOLOFT) tablet 100 mg 100 mg Oral Daily IVET Horn sodium chloride 0.9% (NS) infusion Intravenous Continuous IVET Horn 50 mL/ hr at 09/08/17 160 terazosin (HYTRIN) capsule 5 mg 5 mg Oral Nightly IVET Horn 5 mg at 09/08 ALLERGIES: Allergies Allergen Reactions Atorvastatin Other (See Comments) Myalgia Desipramine Other (See Comments) Prostadynia Lisinopril Other (See Comments) cough PHYSICAL EXAMINATION: Temp: [35.6 C (96 F)-36.8 C (98.2 F)] 36.6 C (97.9 F) Pulse: [64-80] 64 Resp: [9-18] 18 BP: (119-163)/(57-81) 119/57 Intake/Output Summary (Last 24 hours) at 09/09/17 0749 Last data filed at 09/09/17 0700 Gross per 24 hour Intake 5424 ml Output 3600 ml Net 1824 ml GENERAL: Raciel Momin is in no acute distress with unlabored respirations. HEENT: HEAD/FACE: EYES: Normocephalic and atraumatic. There are no areas of recent trauma. Normal sclerae without icterus. CHEST: Clear. HEART: Regular. EXTREMITIES: No edema or swelling. SCD's BACK: The back incisions are dress and a drain is in place with expected output. NEUROLOGICAL EXAM: MENTAL STATUS: The patient is awake, alert, and oriented. He follows simple and complex commands. He speech is fluent, his comprehends speech well, and his repeats well. 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 MOTOR EXAM: Motor strength is improved SENSORY EXAM: Sensory exam is improved 24 HOUR LABS: All Component Based Labs None ASSESSMENT: NEUROSURGICAL DIAGNOSES: S/p lumbar fusion HOSPITAL/GENERAL DIAGNOSES: Past Medical History: Diagnosis Date Benign [...] ity Spinal stenosis of lumbar region PLAN: S/p lumbar fusion, Hospital day 1 - Neurologically stable and pain control is appropriate. - Medically stable - Mobilize, PT/OT - SCD's - Working on BM/bowel function. Encouraged activity and medications to assist - Drain output is as expected. Continue drain - Disp: Likely home tomorrow if improving. ELECTRONICALLY SIGNED BY: Jose Ramon Garcia PA-C, 09/09/2017 7:49 documented in this encounter Plan of Treatment + +------+--------+ + + | Name | Type | Priori | Associated Diagnoses | Order Schedule | | | | ty | | | + +------+--------+ + + | DME: Walker | DME | Routin | S/P lumbar fusion | DME 1 Time for 1 | | | | e | | Occurrences starting | | | | | | 09/08/2017 until | | | | | | 09/08/2017 | + +------+--------+ + + + + +--------+ + + | Name | Type | Priori | Associated Diagnoses | Order Schedule | | | | ty | | | + + +--------+ + + | Referral to Home | Outpatient | Routin | S/P lumbar fusion | Ordered: 09/10/2017 | | Health - OUTPATIENT | Referral | e | Spinal stenosis of | | | | | | lumbar region, | | | | | | unspecified whether | | | | | | neurogenic | | | | | | claudication present | | + + +--------+ + + documented as of this encounter Procedures + +--------+ + + + | Procedure Name | Priori | Date/Time | Associated Diagnosis | Comments | | | ty | | | | + +--------+ + + + | XR LUMBAR SPINE 2 OR | STAT | 09/08/2017 | | Results for this | | 3 VW | | 12:14 PM | | procedure are in the | | | | PDT | | results section. | + +--------+ + + + | FL ISABELA STATS NO | Routin | 09/08/2017 | | Results for this | | CHARGE | e | 10:22 AM | | procedure are in the | | | | PDT | | results section. | + +--------+ + + + | FUSION LUMBAR W/ | | 09/08/2017 | Kyphoscoliosis | | | LATERAL APPROACH | | 7:45 AM | (M41.9), | | | (XLIF) | | PDT | Spondylolisthesis of | | | | | | lumbar region | | | | | | (M43.16), Spinal | | | | | | stenosis, lumbar | | | | | | region, without | | | | | | neurogenic | | | | | | claudication | | | | | | (M48.061), Lumbar | | | | | | radiculopathy | | | | | | (M54.16), Acute back | | | | | | pain with sciatica, | | | | | | right (M54.41), | | | | | | Weakness of lower | | | | | | extremity, | | | | | | unspecified | | | | | | laterality (R29.898) | | + +--------+ + + + +---+--------+ | | Case | | | Notes | | | | | | Specia | | | lty | | | Care | | | Needed | | | : | | | YesIns | | | trumen | | | ts/Spe | | | cial | | | Equipm | | | ent: | | | C-Arm, | | | | | | Drill, | | | | | | Micros | | | cope, | | | METRx, | | | | | | O-Arm, | | | | | | Naviga | | | tion | | | Instru | | | ments, | | | | | | Stealt | | | h | | | Biolog | | | ics: | | | Infuse | | | , | | | Grafto | | | n All | | | biolog | | | ics | | | approv | | | edPosi | | | tion/S | | | equenc | | | e: | | | Left | | | side | | | upTabl | | | e: | | | Jackso | | | n [place] | | | | | | Frame, | | | | | | [place] | | | n | | | Frame | | | REP: | | | Jermaine | | | Darryn | | | ; | | | Fitz | | | Adonis | | | | | | Implan | | | ts: | | | Globus | | | Cage, | | | | | | [place] | | | t | +---+--------+ | | | | | Specia | | | l | | | Needs | | | | | | Specia | | | lty | | | Care | | | Needed | | | : | | | YesPos | | | ition/ | | | Sequen | | | ce: | | | Left | | | side | | | upTabl | | | e: | | | [place] | | | n [place] | | | | | | Frame, | | | | | | [place] | | | n | | | Frame | | | REP: | | | Jermaine | | | Darryn | | | ; | | | Fitz | | | Adonis | | | | | | Implan | | | ts: | | | Globus | | | Cage, | | | | | | Sextan | | | t | +---+--------+ + +--------+ +---+ + | TYPE AND SCREEN | Routin | 09/08/2017 | | Results for this | | | e | 6:51 AM | | procedure are in the | | | | PDT | | results section. | + +--------+ +---+ + documented in this encounter Results XR Lumbar Spine 2 or 3 Vw (09/08/2017 12:14 PM PDT) + + | Specimen | + + | | + + + + + | Narrative | Performed At | + + + | THREE VIEWS LUMBAR SPINE 09/08/2017 12:14 PM CLINICAL HISTORY: | [facility] | | post op lumbar surgery COMPARISON: Radiographs August 08 and | | | more remote exams FINDINGS: Rightward lumbar curvature persists. | | | Interbody and posterior oksana and pedicle screw fusion hardware now | | | extends from L2 through L3 and appears intact and well seated. | | | Several pedicle screws extend slightly beyond the anterior | | | vertebral body margins. Vertebral height is maintained. Mild | | | retrolisthesis persists at L1-2 and mild anterolisthesis persists at | | | L3-4 and L4-5, while previously visible retrolisthesis at L2-3 has | | | been reduced. There is multilevel vertebral spondylosis and facet | | | hypertrophy. Bilateral hip arthroplasty hardware is partially | | | imaged. A surgical drain is present in the left dorsal lumbar soft | | | tissues. IMPRESSION - 1. SATISFACTORY APPEARANCE STATUS POST | | | OPERATIVE FUSION AT L2-3. Dictated and Signed by: López Rivas MD | | | Electronically signed: 09/12/2017 4:00 PM | | + + + + + | Procedure Note | + + | Raymond, Rad Results In - 09/12/2017 4:03 PM PDT THREE VIEWS LUMBAR SPINE 09/08/2017 | | 12:14 PMCLINICAL HISTORY: post op lumbar surgeryCOMPARISON: Radiographs August 08 and | | more remote examsFINDINGS: Rightward lumbar curvature persists. Interbody and | | posterior oksana andpedicle screw fusion hardware now extends from L2 through L3 and | | appears intactand well seated. Several pedicle screws extend slightly beyond the | | anteriorvertebral body margins. Vertebral height is maintained. Mild | | retrolisthesispersists at L1-2 and mild anterolisthesis persists at L3-4 and L4-5, | | whilepreviously visible retrolisthesis at L2-3 has been reduced. There is | | multilevelvertebral spondylosis and facet hypertrophy. Bilateral hip | | arthroplastyhardware is partially imaged. A surgical drain is present in the left | | dorsallumbar soft tissues.IMPRESSION -1. SATISFACTORY APPEARANCE STATUS POST OPERATIVE | | FUSION AT L2-3.Dictated and Signed by: López Rivas MD Electronically signed: | | 09/12/2017 4:00 PM | |hardware is partially imaged. A surgical drain is present in the left dorsal | |lumbar soft tissues. | | | |IMPRESSION - | |1. SATISFACTORY APPEARANCE STATUS POST OPERATIVE FUSION AT L2-3. | | | |Dictated and Signed by: López Rivas MD | | Electronically signed: 09/12/2017 4:00 PM | + + + +---------+ + + | Performing | Address | City/State/Zipcode | Phone Number | | Organization | | | | + +---------+ + + | [facility] | | | | + +---------+ + + [place] Warren-Miguel Statshubham No Charge (09/08/2017 10:22 AM PDT) + + | Specimen | + + | | + + + + + | Narrative | Performed At | + + + | No Radiologist | [facility] | | interpretation, please see Chart Review. | | + + + + +---------+ + + | Performing | Address | City/State/Zipcode | Phone Number | | Organization | | | | + +---------+ + + | [facility] | | | | + +---------+ + + Type and Screen (09/08/2017 6:51 AM PDT) + + + + + + | Component | Value | Ref Range | Performed | Pathologist | | | | | At | Signature | + + + + + + | ABO | O | | [facility] | | | | [facility] | [facility] | [facility] | | [facility] | [facility] - | | | | | | [facility]OD BANK | | + + + + + + | Rh Type | Negative | | [facility] | | | | [facility] | [facility] | | | | | | [facility] - | | | | | | BLOOD BANK | | + + + + + + | Antibody | Negative | | [facility] | | | Screen | | | [facility] | | | | | | [facility] | | | | | | [facility] - | | | | | | BLOOD BANK | | + + + + + + + + | Specimen | + + | Blood | + + + + + + + | Performing | Address | City/State/Zipcode | Phone Number | | Organization | | | | + + + + + | [facility] | [address] | [place] | | | [facility] | | [address] | | | - BLOOD BANK | | | | + + + + + documented in this encounter Visit Diagnoses + + | Diagnosis | + + | Scoliosis of lumbar spine - Primary | + + | S/P lumbar fusion Arthrodesis status | + + | Spinal stenosis of lumbar region, unspecified whether neurogenic claudication present | + + documented in this encounter Administered Medications + +--------+ +--------+------+------+ | Medication Order | MAR | Action | Dose | Rate | Site | | | Action | Date | | | | + +--------+ +--------+------+------+ | acetaminophen (TYLENOL) tablet | Given | 09/08/20 | 975 mg | | | | 975 mg 975 mg, Oral, ONCE, Ashley | | 17 7:02 | | | | | 09/08/17 at 0645, For 1 dose, | | AM PDT | | | | | Pre-op | | | | | | + +--------+ +--------+------+------+ +---+---+ | | | +---+---+ + +---------+ +-----+-------+---+ | ceFAZolin in saline (ANCEF) | New Bag | 09/08/20 | 2 g | 100 | | | IVPB 2 g 2 g, Intravenous, | | 17 11:15 | | mL/hr | | | Administer over 30 Minutes, EVERY | | PM PDT | | | | | 8 HOURS INTERVAL, First dose on | | | | | | | [facility] 09/08/17 at 1600, For 2 | | | | | | | doses, Start 8 hours after | | | | | | | previous dose. Last dose to be | | | | | | | given within 24 hours of surgery | | | | | | | end time. Keep in refrigerator., | | | | | | | Post-op/Phase II, Indications: | | | | | | | Surgical Prophylaxis | | | | | | + +---------+ +-----+-------+---+ +---------+ +-----+-------+---+ | New Bag | 09/08/20 | 2 g | 100 | | | | 17 5:16 | | mL/hr | | | | PM PDT | | | | +---------+ +-----+-------+---+ +---+---+ | | | +---+---+ + +-------+ +------+---+---+ | diazePAM (VALIUM) tablet 5 mg | Given | 09/10/20 | 5 mg | | | | 5 mg, Oral, EVERY 6 HOURS PRN, | | 17 10:22 | | | | | Muscle spasms, Starting Ashley | | AM PDT | | | | | 09/08/17 at 1227, Use if | | | | | | | methocarbamol and cyclobenzaprine | | | | | | | ineffective or not ordered., | | | | | | | Post-op/Phase II | | | | | | + +-------+ +------+---+---+ +-------+ +------+---+---+ | Given | 09/09/20 | 5 mg | | | | | 17 9:27 | | | | | | AM PDT | | | | +-------+ +------+---+---+ + +---+ | | | + +---+ | diphenhydrAMINE (BENADRYL) 12.5 | | | mg/5 mL liquid 25 mg 25 mg, | | | Oral, EVERY 4 HOURS PRN, Itching, | | | Starting Ashley 09/08/17 at 1227, | | | Oral route is preferred., | | | Post-op/Phase II | | + +---+ | | | + +---+ | diphenhydrAMINE (BENADRYL) | | | injection 12.5 mg 12.5 mg, | | | Intravenous, EVERY 4 HOURS PRN, | | | Itching, Starting [facility] 09/08/17 at | | | 1227, Oral route is preferred., | | | Post-op/Phase II | | + +---+ | | | + +---+ | diphenhydrAMINE (BENADRYL) | | | tablet 25 mg 25 mg, Oral, EVERY | | | 4 HOURS PRN, Itching, Starting | | | Ashley 09/08/17 at 1227, Oral route | | | is preferred., Post-op/Phase II | | + +---+ | | | + +---+ + +-------+ +--------+---+---+ | docusate sodium (COLACE) | Given | 09/10/20 | 100 mg | | | | capsule 100 mg 100 mg, Oral, 2 | | 17 10:22 | | | | | TIMES DAILY, First dose on Tue | | AM PDT | | | | | 09/08/17 at 1245, First line | | | | | | | agent for constipation, | | | | | | | Post-op/Phase II | | | | | | + +-------+ +--------+---+---+ +-------+ +--------+---+---+ | Given | 09/09/20 | 100 mg | | | | | 17 8:26 | | | | | | PM PDT | | | | +-------+ +--------+---+---+ | Given | 09/09/20 | 100 mg | | | | | 17 9:27 | | | | | | AM PDT | | | | +-------+ +--------+---+---+ +---+---+ | | | +---+---+ + +-------+ +--------+---+---+ | fentaNYL (PF) injection 25-50 | Given | 09/08/20 | 25 mcg | | | | mcg 25-50 mcg, Intravenous, | | 17 11:15 | | | | | EVERY 5 MIN PRN, Pain, Starting | | AM PDT | | | | | Ashley 09/08/17 at 1039, Maximum | | | | | | | total dose 250 mcg. PACU IV | | | | | | | Narcotic Priority: Only use | | | | | | | fentanyl for immediate post-op | | | | | | | pain (one dose) or breakthrough | | | | | | | pain when any other IV narcotics | | | | | | | ordered have been ineffective (if | | | | | | | ordered). If both morphine and | | | | | | | hydromorphone are ordered, use | | | | | | | morphine first, and use | | | | | | | hydromorphone if morphine | | | | | | | ineffective., Recovery/Phase I | | | | | | + +-------+ +--------+---+---+ +---+---+ | | | +---+---+ + +-------+ +------+---+---+ | finasteride (PROSCAR) tablet 5 | Given | 09/10/20 | 5 mg | | | | mg 5 mg, Oral, DAILY, First dose | | 17 10:22 | | | | | on Ashley 09/08/17 at 1245, | | AM PDT | | | | | Reproductive Risk: Use | | | | | | | appropriate handling | | | | | | | precautions., Post-op/Phase II | | | | | | + +-------+ +------+---+---+ +-------+ +------+---+---+ | Given | 09/09/20 | 5 mg | | | | | 17 9:27 | | | | | | AM PDT | | | | +-------+ +------+---+---+ +---+---+ | | | +---+---+ + +-------+ +--------+---+---+ | gabapentin (NEURONTIN) capsule | Given | 09/08/20 | 300 mg | | | | 300 mg 300 mg, Oral, ONCE, Ashley | | 17 7:02 | | | | | 09/08/17 at 0645, For 1 dose, | | AM PDT | | | | | Pre-op | | | | | | + +-------+ +--------+---+---+ +---+---+ | | | +---+---+ + +-------+ +---------+---+---+ | HYDROcodone-acetaminophen | Given | 09/10/20 | 2 | | | | (NORCO) 10-325 mg per tablet 1-2 | | 17 12:48 | tablets | | | | tablet 1-2 tablet, Oral, EVERY 4 | | PM PDT | | | | | HOURS PRN, Pain, Starting Ashley | | | | | | | 09/08/17 at 1227, Post-op/Phase | | | | | | | II | | | | | | + +-------+ +---------+---+---+ +-------+ +---------+---+---+ | Given | 09/10/20 | 2 | | | | | 17 6:53 | tablets | | | | | AM PDT | | | | +-------+ +---------+---+---+ | Given | 09/09/20 | 2 | | | | | 17 9:27 | tablets | | | | | PM PDT | | | | +-------+ +---------+---+---+ +---+---+ | | | +---+---+ + +-------+ +--------+---+---+ | HYDROmorphone (DILAUDID) | Given | 09/08/20 | 0.3 mg | | | | injection 0.2-0.5 mg 0.2-0.5 mg, | | 17 11:25 | | | | | Intravenous, EVERY 5 MIN PRN, | | AM PDT | | | | | Pain, Starting Ashley 09/08/17 at | | | | | | | 1039, Maximum total dose 4 mg. | | | | | | | PACU IV Narcotic Priority: Only | | | | | | | use fentanyl for immediate | | | | | | | post-op pain (one dose) or | | | | | | | breakthrough pain when any other | | | | | | | IV narcotics ordered have been | | | | | | | ineffective (if ordered). If | | | | | | | both morphine and hydromorphone | | | | | | | are ordered, use morphine first, | | | | | | | and use hydromorphone if morphine | | | | | | | ineffective., Recovery/Phase I | | | | | | + +-------+ +--------+---+---+ +-------+ +--------+---+---+ | Given | 09/08/20 | 0.2 mg | | | | | 17 11:20 | | | | | | AM PDT | | | | +-------+ +--------+---+---+ +---+---+ | | | +---+---+ + +-------+ +--------+---+---+ | losartan (COZAAR) tablet 100 mg | Given | 09/10/20 | 100 mg | | | | 100 mg, Oral, DAILY, First dose | | 17 10:21 | | | | | on Ashley 09/08/17 at 1245, | | AM PDT | | | | | Post-op/Phase II | | | | | | + +-------+ +--------+---+---+ +-------+ +--------+---+---+ | Given | 09/09/20 | 100 mg | | | | | 17 9:27 | | | | | | AM PDT | | | | +-------+ +--------+---+---+ | Given | 09/08/20 | 100 mg | | | | | 17 4:01 | | | | | | PM PDT | | | | +-------+ +--------+---+---+ +---+---+ | | | +---+---+ + +---------+ +--------+--------+---+ | methocarbamol (ROBAXIN) 750 mg | New Bag | 09/09/20 | 750 mg | 143.3 | | | in sodium chloride 0.9% 100 mL | | 17 11:44 | | mL/hr | | | IVPB 750 mg, Intravenous, | | AM PDT | | | | | Administer over 45 Minutes, EVERY | | | | | | | 8 HOURS INTERVAL, First dose on | | | | | | | [facility] 09/08/17 at 1045, For 4 | | | | | | | doses, Post-op/Phase II | | | | | | + +---------+ +--------+--------+---+ +---------+ +--------+--------+---+ | New Bag | 09/09/20 | 750 mg | 143.3 | | | | 17 2:07 | | mL/hr | | | | AM PDT | | | | +---------+ +--------+--------+---+ | New Bag | 09/08/20 | 750 mg | 143.3 | | | | 17 6:17 | | mL/hr | | | | PM PDT | | | | +---------+ +--------+--------+---+ +---+---+ | | | +---+---+ + +-------+ +-------+---+---+ | pantoprazole (PROTONIX) DR | Given | 09/10/20 | 40 mg | | | | tablet 40 mg 40 mg, Oral, DAILY | | 17 6:51 | | | | | BEFORE BREAKFAST, First dose on | | AM PDT | | | | | Ashley 09/08/17 at 1245, | | | | | | | Post-op/Phase II | | | | | | + +-------+ +-------+---+---+ +-------+ +-------+---+---+ | Given | 09/09/20 | 40 mg | | | | | 17 6:42 | | | | | | AM PDT | | | | +-------+ +-------+---+---+ +---+---+ | | | +---+---+ + +-------+ +------+---+---+ | polyethylene glycol (MIRALAX) | Given | 09/10/20 | 17 g | | | | powder 17 g 17 g, Oral, DAILY, | | 17 10:21 | | | | | First dose on Ashley 09/08/17 at | | AM PDT | | | | | 1245, If docusate and senna | | | | | | | ineffective or not ordered, | | | | | | | Post-op/Phase II | | | | | | + +-------+ +------+---+---+ +-------+ +------+---+---+ | Given | 09/09/20 | 17 g | | | | | 17 9:27 | | | | | | AM PDT | | | | +-------+ +------+---+---+ +---+---+ | | | +---+---+ + +-------+ +--------+---+---+ | senna (SENOKOT) tablet 8.6 mg | Given | 09/10/20 | 8.6 mg | | | | 8.6 mg, Oral, 2 TIMES DAILY, | | 17 10:22 | | | | | First dose on [facility] 09/08/17 at | | AM PDT | | | | | 1245, If docusate ineffective or | | | | | | | not ordered, Post-op/Phase II | | | | | | + +-------+ +--------+---+---+ +-------+ +--------+---+---+ | Given | 09/09/20 | 8.6 mg | | | | | 17 8:27 | | | | | | PM PDT | | | | +-------+ +--------+---+---+ | Given | 09/09/20 | 8.6 mg | | | | | 17 9:27 | | | | | | AM PDT | | | | +-------+ +--------+---+---+ +---+---+ | | | +---+---+ + +-------+ +--------+---+---+ | sertraline (ZOLOFT) tablet 100 | Given | 09/10/20 | 100 mg | | | | mg 100 mg, Oral, DAILY, First | | 17 10:22 | | | | | dose on Ashley 09/08/17 at 1245, | | AM PDT | | | | | Post-op/Phase II | | | | | | + +-------+ +--------+---+---+ +-------+ +--------+---+---+ | Given | 09/09/20 | 100 mg | | | | | 17 9:27 | | | | | | AM PDT | | | | +-------+ +--------+---+---+ +---+---+ | | | +---+---+ + +---------+ +---+---+---+ | sodium chloride 0.9% (NS) | New Bag | 09/08/20 | | | | | infusion at 100 mL/hr, | | 17 9:00 | | | | | Intravenous, CONTINUOUS, Starting | | AM PDT | | | | | Ashley 09/08/17 at 0645, Pre-op | | | | | | + +---------+ +---+---+---+ +---------+ +---+-------+---+ | New Bag | 09/08/20 | | 100 | | | | 17 7:02 | | mL/hr | | | | AM PDT | | | | +---------+ +---+-------+---+ +---+---+ | | | +---+---+ + + + +---+ +---+ | sodium chloride 0.9% (NS) | Rate/Dos | 09/08/20 | | 50 mL/hr | | | infusion at 100 mL/hr, | e Change | 17 4:02 | | | | | Intravenous, CONTINUOUS, Starting | | PM PDT | | | | | Ashley 09/08/17 at 1245, | | | | | | | Post-op/Phase II | | | | | | + + + +---+ +---+ +---------+ +---+-------+---+ | New Bag | 09/08/20 | | 100 | | | | 17 12:58 | | mL/hr | | | | PM PDT | | | | +---------+ +---+-------+---+ +---+---+ | | | +---+---+ + +-------+ +------+---+---+ | terazosin (HYTRIN) capsule 5 mg | Given | 09/09/20 | 5 mg | | | | 5 mg, Oral, NIGHTLY, First dose | | 17 8:26 | | | | | on Ashley 09/08/17 at 2100, | | PM PDT | | | | | Post-op/Phase II | | | | | | + +-------+ +------+---+---+ +-------+ +------+---+---+ | Given | 09/08/20 | 5 mg | | | | | 17 9:01 | | | | | | PM PDT | | | | +-------+ +------+---+---+ +---+---+ | | | +---+---+ documented in this encounter
--- OUTSIDE RECORDS SUMMARY | ~2019-11-02 | XMS | Encounter Summary ---
Demographics + + + | Address | [address] | | | [place] [address] | + + + | Home Phone | | + + + | Preferred Language | Unknown | + + + | Marital Status | | + + + | Catholic Affiliation | 1028 | + + + | Race | Unknown | + + + | Ethnic Group | Unknown | + + + Author + + + | Author | [facility] | | | and [place] | + + + | Organization | [facility] | | | and [place] | + + + | Address | Unknown | + + + | Phone | Unavailable | + + + Support + + + + + | Name | Relationship | Address | Phone | + + + + + | Pina Momin | ECON | [address] | | | | | [place] [address] | | + + + + + Care Team Providers + +------+ + | Care Weaver [place] Name | Role | Phone | + +------+ + | Dave Franco MD | PCP | | + +------+ + Encounter Details +--------+ + + + + | Date | Type | Department | Care Team | Description | +--------+ + + + + | 08/23/ | Episode | [facility] [place] | Sofya Martini, | | | 2017 | Changes | NEUROSURGERY [address] | Cert [place] | | | | | [address] | | | | | | [place] | | | | | | [address] | | | | | | [phone] | | | +--------+ + + + [...] filedocumented as of this encounter Visit Diagnoses Not on filedocumented in this encounter"
--- OUTSIDE RECORDS SUMMARY | ~2019-11-02 | XMS | Encounter Summary ---
Demographics + + + | Address | [address] | | | [place] [address] | + + + | Home Phone | | + + + | Preferred Language | Unknown | + + + | Marital Status | | + + + | Holiness Affiliation | 1028 | + + + | Race | Unknown | + + + | Ethnic Group | Unknown | + + + Author + + + | Author | [facility] | | | and [place] | + + + | Organization | [facility] | | | and [place] | + + + | Address | Unknown | + + + | Phone | Unavailable | + + + Support + + + + + | Name | Relationship | Address | Phone | + + + + + | Pina Momin | ECON | [address] | | | | | [place] [address] | | + + + + + Care Team Providers + +------+ + | Care Safety Administrator Name | Role | Phone | + [...] | [facility] | MD [address] | | | | | IMAGING | [address] | | | | | [phone] | [place] [address] | | +--------+ + + + + [...] for comparison only - no result from [place]. | | + + + documented in this encounter Visit Diagnoses Not on filedocumented in this encounter"
--- OUTSIDE RECORDS SUMMARY | ~2019-11-02 | XMS | Encounter Summary ---
Demographics + + + | Address | [address] | | | [place] [address] | + + + | Home Phone | | + + + | Preferred Language | Unknown | + + + | Marital Status | | + + + | Jehovah'S Witness Affiliation | 1028 | + + + | Race | Unknown | + + + | Ethnic Group | Unknown | + + + Author + + + | Author | [facility] | | | and [place] | + + + | Organization | [facility] | | | and [place] | + + + | Address | Unknown | + + + | Phone | Unavailable | + + + Support + + + + + | Name | Relationship | Address | Phone | + + + + + | Pina Momin | ECON | [address] | | | | | [place] [address] | | + + + + + Care Team Providers + +------+ + | Care Boilermaking Supervisor Name | Role | Phone | + [...] | [facility] | [facility] [address] | | | | | IMAGING | [address] | | | | | [phone] | [place] [address] | | +--------+ + + + + [...] + +--------+ + + + | XR PELVIS 1 OR 2 VW | Routin | 12/30/2008 | | Results for this | | | e | 9:30 AM | | procedure are in the | | | | PST | | results section. | + +--------+ + + + documented in this encounter Results XR Pelvis 1 or 2 Vw (12/30/2008 9:30 AM PST) + + | Specimen | + + | | + + + + + | Narrative | Performed At | + + + | External films for comparison only - no result from [place]. | [facility] | + + + + +---------+ + + | Performing | Address | City/State/Zipcode | Phone Number | | Organization | | | | + +---------+ + + | [facility] | | | | + +---------+ + + documented in this encounter Visit Diagnoses Not on filedocumented in this encounter"
--- OUTSIDE RECORDS SUMMARY | ~2019-11-02 | XMS | Encounter Summary ---
Demographics + + + | Address | [address] | | | [place] [address] | + + + | Home Phone | | + + + | Preferred Language | Unknown | + + + | Marital Status | | + + + | Jewish Affiliation | 1028 | + + + | Race | Unknown | + + + | Ethnic Group | Unknown | + + + Author + + + | Author | [facility] | | | and [place] | + + + | Organization | [facility] | | | and [place] | + + + | Address | Unknown | + + + | Phone | Unavailable | + + + Support + + + + + | Name | Relationship | Address | Phone | + + + + + | Pina Momin | ECON | [address] | | | | | [place] [address] | | + + + + + Care Team Providers + +------+ + | Care Political Science Professor Name | Role | Phone | + [...] | [facility] | [facility] [address] | | | | | IMAGING | [address] | | | | | [phone] | [place] [address] | | +--------+ + + + + [...] | + +--------+ + + + | MRI LUMBAR SPINE WO | Routin | 05/24/2017 | | Results for this | | CONTRAST | e | 9:30 AM | | procedure are in the | | | | PDT | | results section. | + +--------+ + + + documented in this encounter Results MRI Lumbar Spine wo Contrast (05/24/2017 9:30 AM PDT) + + | Specimen | + + | | + + + + + | Narrative | Performed At | + + + | External films for comparison only - no result from [place]. | [facility] | + + + + +---------+ + + | Performing | Address | City/State/Zipcode | Phone Number | | Organization | | | | + +---------+ + + | [facility] | | | | + +---------+ + + documented in this encounter Visit Diagnoses Not on filedocumented in this encounter"
--- OUTSIDE RECORDS SUMMARY | ~2019-11-02 | XMS | Encounter Summary ---
Demographics + + + | Address | [address] | | | [place] [address] | + + + | Home Phone | | + + + | Preferred Language | Unknown | + + + | Marital Status | | + + + | Orthodoxy Affiliation | 1028 | + + + [...] + | Pina Momin | ECON | [address] | | | | | [place] [address] | | + + + + + Care Team Providers + +------+ + | Care Seismology Technical Officer Name | Role | Phone | + +------+ + | Jorge Diaz DO | PCP | | + +------+ + Reason for Visit + + + | Reason | Comments | + + + | Imaging Only | PO Lumbar xrays | + + + Encounter Details +--------+ + + + + | Date | Type | Department | Care Team | Description | +--------+ + + + + | 12/05/ | Telephone | [facility] | Ihsan Chavez, | Imaging Only (PO | | 2018 | | NEUROSURGERY [address] | DO [address] | Lumbar xrays) | | | | [address] | [address] [place], [place] | | | | | [place], [place] | [address] | | | | | [address] | | | | | | [phone] | | | +--------+ + + + [...]
--- OUTSIDE RECORDS SUMMARY | ~2019-11-02 | XMS | Clinical Summary ---
Demographics + + + | Address | [address] | | | [place] [address] | + + + | Home Phone | | + + + | Preferred Language | Unknown | + + + | Marital Status | | + + + | Church Affiliation | 1028 | + + + | Race | Unknown | + + + | Ethnic Group | Unknown | + + + Author + + + | Author | [facility] | | | and [place] | + + + | Organization | [facility] | | | and [place] | + + + | Address | Unknown | + + + | Phone | Unavailable | + + + Support + + + + + | Name | Relationship | Address | Phone | + + + + + | Pian Momin | ECON | [address] | | | | | [place] [address] | | + + + + + Care Team Providers + +------+ + | Care Psychology Intern Name | Role | Phone | + [...] Left: | [employer] - | | | [id number] | | [id number] - | c | Spine | MEDT | | | 5050 / | | [id number]: Qty: 2 on | | Lumbar | | | | / | | 09/08/2017 by Ihsan Chavez | | | | | | | | DO Nabor at [facility] | | | | | | | | [facility] | | | | | | | + +--------+--------+ +--------+--------+--------+ | Graft Infuse Bone Kit Xxs - | Graft | Left: | [employer] - | | 08/13/ | [id number] | | SnaImplanted: Qty: 1 on | | Spine | MEDT | | 2018 | 0 /NA | | 09/08/2017 by Ihsan Chavez | | Lumbar | | | | /[id number] | | ADO at [facility] | | | | | | 58AAA | | [facility] | | | | | | | + +--------+--------+ +--------+--------+--------+ | Screw Cn Mas [id number] Cc - | Screw | Left: | [employer] - | | | [id number] | | [id number]: Qty: 4 on | | Spine | MEDT | | | [id number] | | 09/08/2017 by Ihsan Chavez | | Lumbar | | | | / / | | DO Nabor at [facility] | | | | | | | | [facility] | | | | | | | + +--------+--------+ +--------+--------+--------+ | Set Scrw Ns G5 Brk Off Ti | Screw | Left: | [employer] - | | | [id number] | | 4.75 - [id number]: | | Spine | MEDT | | | 0 / / | | Qty: 4 on 09/08/2017 by | | Lumbar | | | | | | Ihsan Chavez DO at [facility] | | | | | | | | [facility] | | | | | | [...] | | | | A, DO at [facility] | | | | | | | | [facility] | | | | | | [...] + +--------+ | MEDICARE | MEDICA | [id number] | 03/14/20 | [phone] | | Medica | | | RE | | 04-Pre | 5 | | re | | | PART A | | sent | | | | | | AND B | | | | | | + +--------+ +--------+ + +--------+ | MODA | MODA | [id number] | 11/14/19 | [phone] | [address] | Indemn | | | HEALTH | | 17-Pre | 9 | [id number] | ity | | | MDCR | | sent | | [place], | | | | [place] | | | | [place] [address] | | + +--------+ +--------+ + +--------+ + +--------+ +--------+ + + | Guarantor Name | Accoun | Relation to | Date | Phone | Billing Address | | | t Type | Patient | of | | | | | | | | | | + +--------+ +--------+ + + | Raciel Momin | Person | Self | [birth year] | [address] | | | al/Fam | | 1940 | [phone] | [place] [address] | | | mariangel | | | 2 (Home) | | + +--------+ +--------+ + + Advance Directives + + + + + | Type | Date Recorded | Patient | Explanation | | | | Entry Analyst | | + + + + + | Power of | | | | | Electrotyper | | | | + + + [...]
--- OUTSIDE RECORDS SUMMARY | ~2019-11-02 | XMS | Encounter Summary ---
Demographics + + + | Address | [address] | | | [place] [address] | + + + | Home Phone | | + + + | Preferred Language | Unknown | + + + | Marital Status | | + + + | Pentecostal Affiliation | 1028 | + + + | Race | Unknown | + + + | Ethnic Group | Unknown | + + + Author + + + | Author | [facility] | | | and [place] | + + + | Organization | [facility] | | | and [place] | + + + | Address | Unknown | + + + | Phone | Unavailable | + + + Support + + + + + | Name | Relationship | Address | Phone | + + + + + | Pina Momin | ECON | [address] | | | | | [place] [address] | | + + + + + Care Team Providers + +------+ + | Care Engineering Technical Analyst Name | Role | Phone | + +------+ + | Dave Franco MD | PCP | | + +------+ + Encounter Details +--------+ + + + + | Date | Type | Department | Care Team | Description | +--------+ + + + + | 08/22/ | Preadmit | [facility] | Ihsan Chavez, | Preoperative | | 2017 | Visit | [facility] | DO [address] | clearance (Primary | | | | CLINIC [address] | [address] [place], [place] | Dx); Spinal stenosis | | | | [place], [place] | [address] | of lumbar region, | | | | [address] | | unspecified whether | | | | | | neurogenic | | | | | | claudication | | | | | | present; | | | | [...] | + +--------+ + + + | CBC WITH | Routin | 08/22/2017 | Spinal stenosis of | Results for this | | DIFFERENTIAL | e | 2:54 PM | lumbar region, | procedure are in the | | | | PDT | unspecified whether | results section. | | | | | neurogenic | | | | | | claudication present | | | | | | Hypertension, | | | | | | unspecified type | | + +--------+ + + + | CULTURE, MRSA | Routin | 08/22/2017 | Preoperative | Results for this | | | e | 2:53 PM | clearance | procedure are in the | | | | PDT | | results section. | + +--------+ + + + | ECG 12 LEAD | Routin | 08/22/2017 | Spinal stenosis of | Results for this | | | e | 2:46 PM | lumbar region, | procedure are in the | | | | PDT | unspecified whether | results section. | | | | | neurogenic | | | | | | claudication present | | | | | | Hypertension, | | | | | | unspecified type | | + +--------+ + + + documented in this encounter Results CBC with Differential (08/22/2017 [...] | | | | M/uL | [facility] | | | | [...] | | | Eosinophils | | | [facility] | | [...] | | Neutrophils | | K/uL | [facility] | | | | | | MEDICAL | | | | | | CENTER - | | | | | | LABORATORY | | + + + + + + | Absolute | 1.30 | 0.60 - 3.20 | [facility] | | | Lymphocytes | | K/uL | [facility] | | | | | | MEDICAL | | | | | | CENTER - | | | | | | LABORATORY | | + + + + + + | Absolute | 0.60 | 0.00 - 1.00 | [facility] | | | Monocytes | | K/uL | [facility] | [...] | + + + + + | [facility] | [address] | [place] | [phone] | | [facility] | | [address] | | | - LABORATORY | | | | + + + + + Culture, MRSA (08/22/2017 2:53 PM PDT) + + + + + + | Component | Value | Ref Range | Performed | Pathologist | | | | | At | Signature | + + + + + + | Culture | Negative for MRSA by | | [facility] | | | | chromogenic agar method | | [facility] | | | | | | MEDICAL | | | | | | CENTER - | | | | | | LABORATORY | | + + + + + + + + | Specimen | + + | Respiratory - Both | | anterior nares (body | | structure) | + + + + + + + | Performing | Address | City/State/Zipcode | Phone Number | | Organization | | | | + + + + + | [facility] | [address] | [place] | [phone] | | [facility] | | [address] | | | - LABORATORY | | [...] | | | | JEANNIE LAUREN MD ([id number]) | | | | | | on [...] + | Diagnosis | + + | Preoperative clearance - Primary Preoperative examination, unspecified | + + | Spinal stenosis of lumbar region, unspecified whether neurogenic claudication present | + + | Hypertension, unspecified type | + + documented in this encounter"
--- OUTSIDE RECORDS SUMMARY | ~2019-11-02 | XMS | Encounter Summary ---
Demographics + + + | Address | [address] | | | [place] [address] | + + + | Home Phone | | + + + | Preferred Language | Unknown | + + + | Marital Status | | + + + | Yazidism Affiliation | 1028 | + + + | Race | Unknown | + + + | Ethnic Group | Unknown | + + + Author + + + | Author | [facility] | | | and [place] | + + + | Organization | [facility] | | | and [place] | + + + | Address | Unknown | + + + | Phone | Unavailable | + + + Support + + + + + | Name | Relationship | Address | Phone | + + + + + | Pina Momin | ECON | [address] | | | | | [place] [address] | | + + + + + Care Team Providers + +------+ + | Care Designer Writer Name | Role | Phone | + +------+ + | Dave Franco MD | PCP | | + +------+ + Reason for Visit Auth/Cert +--------+--------+ + [...] | | | | | | | MA | | | | | | | ARTHRODESIS | | | | | | | POSTERIOR/PO | | | | | | | STEROLATERAL | | | | | | | LUMBAR MA | | | | | | | LUMBAR SPINE | | | | | | | | | | | | | | FUSION,ANTER | | | | | | | APPRCH MA | | | | | | | [...] | | | | | | ION MA | | | | | | | [...] + + + + | 09/08/ | Anesthesia | [facility] | Jane Zheng | | | 2017 | Event | MED CTR OR INTRA OP | MD Maisha [address] | | | | | [address] | [address] [place] | | | | | [place] | [address] | | | | | [address] | | | | | | [phone] | | | | | | | Peter Austin MD | | | | | | [address] | | | | | | [place] | | | | | | [address] | | | | | | | | +--------+ + + + + Anesthesia Record + + + + + | Procedure Name | Responsible | Anesthesia Start | Anesthesia Stop Time | | | Anesthesiologist | Time | | + + + + + | L2-3 KRISTIEF (Left | Jane Zheng, | 09/08/17 0742 | 09/08/17 1041 | | Spine Lumbar) | MD | | | + + + + + +----+---+ + + | Da | T | Event | Comment | | te | i | | | | | m | | | | | e | | | +----+---+ + + | 10 | 0 | An Checkout | Pre-use anesthesia machine/equipment checkout. | | /2 | 7 | | | | 6/ | 1 | | | | 20 | 0 | | | | 17 | | | | +----+---+ + + | | 0 | an peter now | Anesthesia Setup complete. | | | 7 | | | | | 1 | | | | | 5 | | | +----+---+ + + | | 0 | | | | | 7 | | | | | 1 | | | | | 6 | | | +----+---+ + + | | 0 | An Start | | | | 7 | Data | | | | 2 | | | | | 5 | | | +----+---+ + + | | 0 | An Start | Room ready, anesthesia equipment checked, essential drugs & | | | 7 | | equipment available. Patient Identity checked, anesthesia plan | | | 4 | | explained and consent obtained. Patient transported to OR, | | | 2 | | Monitors applied. Reassessment prior to anesthesia | | | | | induction/procedure. | +----+---+ + + | | 0 | an peter now | | | | 7 | | | | | 4 | | | | | 5 | | | +----+---+ + + | | 0 | Antibiotic | | | | 7 | Given | | | | 4 | | | | | 6 | | | +----+---+ + + | | 0 | Preoxygenat | Oxygen administered, patient sedated, ventilating spontaneously. | | | 7 | ed | | | | 4 | | | | | 7 | | | +----+---+ + + | | 0 | An | | | | 7 | Induction | | | | 4 | | | | | 9 | | | +----+---+ + + | | 0 | An | Smooth IV induction, mask airway established. Direct Laryngoscopy | | | 7 | Intubation | , ETT placed. BSEB/ETCO2 (auscultation and capnography) to | | | 5 | | confirm placement. Depth noted. Ventilator on. | | | 0 | | | +----+---+ + + | | 0 | an peter now | Surgeon arrives. | | | 8 | | | | | 0 | | | | | 9 | | | +----+---+ + + | | 0 | an peter now | Right Lateral | | | 8 | | | | | 1 | | | | | 1 | | | +----+---+ + + | | 0 | Pre-Procedu | | | | 8 | ral Timeout | | | | 2 | Completed | | | | 3 | | | +----+---+ + + | | 0 | an peter now | | | | 8 | | | | | 2 | | | | | 5 | | | +----+---+ + + | | 0 | First | | | | 8 | Inc/Proc St | | | | 2 | | | | | 6 | | | +----+---+ + + | | 0 | an peter now | Prone. | | | 8 | | | | | 5 | | | | | 8 | | | +----+---+ + + | | 0 | Quick Note | Scan Inaccurate. Surgeon asks for paralysis for O-Arm Scan. | | | 9 | | | | | 1 | | | | | 8 | | | +----+---+ + + | | 1 | an peter now | | | | 0 | | | | | 2 | | | | | 6 | | | +----+---+ + + | | 1 | an peter now | PACU | | | 0 | | | | | 3 | | | | | 6 | | | +----+---+ + + | | 1 | An Stop | Patient handed off to recovery nurse. | | | 4 | | | | | 1 | | | +----+---+ + + +------+ | Meds | +------+ + + + | Name | Total | + + + | midazolam | 2 mg | + + + | propofol | 140 mg | + + + | fentaNYL injection (2 mL) | 100 mcg | + + + | HYDROmorphone | 2 mg | + + + | succinylcholine | 200 mg | + + + | dexamethasone | 8 mg | + + + | tranexamic acid (CYKLOKAPRON) 1 g | 1 g | | in 50 mL NS IVPB (simple) | | + + + | magnesium sulfate injection 500 | 1 g | | mg/mL (vial) | | + + + | ceFAZolin in saline (ANCEF) IVPB | 2 g | | 2 g | | + + + | sodium chloride 0.9% (NS) | 1,600 mL | | infusion | | + + + + + | Name | + + | N2O Flow Rate (L/Min) | + + | O2 Flow Rate (L/Min) | + + | Insp O2 | + + | Exp SEV | + + | Air Flow Rate (L/Min) | + + + + | No blood administrations on file. | + + +--------+ + + + | Type | Details | Placement | Removal | +--------+ + + + | Periph | 09/08/17; 0702; Right; Forearm; | 09/08/17 0702 by | 09/10/17 1230 by | | eral | [id number] catheter system; | Josephine Holloway, | Kenroy Ascencio RN | | IV | 18 gauge; distraction, | RN | | | | intradermal injection; | | | | | catheter/device intact; short | | | | | term use; 09/10/17; 1230 | | | +--------+ + + + | Airway | Placement Date: 09/08/17; | 09/08/17 0750 by | 09/08/17 1058 by | | | Placement Time: 0750 (created via | Jane Zheng, | Itzel Austin RN | | | procedure documentation); Mask | MD | | | | Ventilation: EZ; Airway Grade: | | | | | 2a; Laryngoscope Blade Size: 3; | | | | | Attempts: 1; Airway Type: | | | | | endotracheal; Size: 6.5; Airway | | | | | Tube Secured At: 22; Trauma: | | | | | none; Other Equipment: stylette; | | | | | Placement Check: exhaled CO2 | | | | | detection device, video | | | | | laryngoscope, bilateral chest | | | | | rise, breath sounds equal | | | | | bilaterally; Removal: per | | | | | protocol, removed by RN; Removal | | | | | Date: 09/08/17; Removal Time: | | | | | 1058; Additional Comments: | | | | | Neutral Head Position, no neck | | | | | flexion or extension attempted. | | | | | Smooth IV induction, mask airway | | | | | established. Direct Laryngoscopy | | | | | with Jose Laryngoscope, ETT | | | | | placed under video guidance. | | | | | BSEB/ETCO2 (auscultation and | | | | | capnography) to confirm | | | | | placement. Depth noted. | | | | | Ventilator on. | | | +--------+ + + + | Read | 09/08/17; 0842; Left; flank; | 09/08/17 0842 by | 09/10/17 1230 by | | only - | healing within expectations; | Jam Ye RN | Kenroy Ascencio RN | | | 09/10/17; 1230 | | | | Incisi | | | | | on | | | | +--------+ + + + | Read | 09/08/17; 0946; Bilateral; back; | 09/08/17 0946 by | 09/10/17 1230 by | | only - | healing within expectations; | Jam Ye RN | Kenroy Ascencio RN | | | 09/10/17; 1230 | | | | Incisi | | | | | on | | | | +--------+ + + + | Drain/ | 09/08/17; 1014; #1; Left; | 09/08/17 1014 by | 09/10/17 1230 by | | Device | posterior; back; collapsible | Jam Ye RN | Kenroy Ascencio RN | | Site | closed device; (10fr, 100ml Ha | | | | | Drain); tip intact; short term | | | | | use; 09/10/17; 1230 | | | +--------+ + + + documented in this encounter Social History + +-------+ +--------+------+ | Tobacco [...] | + +--------+ + + + | ANE AIRWAY NOTE | Routin | 09/08/2017 | | Results for this | | | e | 7:57 AM | | procedure are in the | | | | PDT | | results section. | + +--------+ + + + documented in this encounter Results Anesthesia Airway Note (09/08/2017 7:57 AM PDT) + + + | Narrative | Performed At | + + + | Jane Zheng MD 09/08/2017 7:58 Anesthesia Airway | | | Placement 09/08/2017 7:50 Preprocedure check: patient identified, | | | oxygen, airway assessed, patient reassessment prior to induction, | | | airway equipment checked and suction Mask ventilation: easy | | | Successful technique: Jose Laryngoscope blade size: 3 Airway | | | grade: 2a (Partial view of glottis) Other equipment: stylette | | | Attempts: 1 Airway type: endotracheal Size: 6.5 Cuffed: cuffed | | | Route, reference point: right side of mouth Tube depth: 22 cm Tube | | | secured with: adhesive tape Trauma: none Tube placement | | | verification: carbon dioxide detection, equal bilateral breath | | | sounds, bilateral chest rise and video laryngoscope Performing | | | provider: JANE ZHENG Comments: Neutral Head Position, no | | | neck flexion or extension attempted. Smooth IV induction, mask | | | airway established. Direct Laryngoscopy with Jose Laryngoscope, | | | ETT placed under video guidance. BSEB/ETCO2 (auscultation and | | | capnography) to confirm placement. Depth noted. Ventilator on. | | | Electronically Signed by: Jane Zheng MD | | | ESig date/time: 09/08/2017 7:57 | | | | | + + + + + | Procedure Note | + + | Jane Zheng MD - 09/08/2017 7:57 AM PDT Anesthesia Airway | | [id number]/26/2017 7:50Preprocedure check: patient identified, oxygen, airway assessed, | | patient reassessment prior to induction, airway equipment checked and suctionMask | | ventilation: easySuccessful technique: McGrathLaryngoscope blade size: 3 Airway grade: | | 2a (Partial view of glottis)Other equipment: styletteAttempts: 1Airway type: | | endotrachealSize: 6.5Cuffed: cuffedRoute, reference point: right side of mouthTube | | depth: 22 cmTube secured with: adhesive tapeTrauma: noneTube placement verification: | | carbon dioxide detection, equal bilateral breath sounds, bilateral chest rise and video | | laryngoscopePerforming provider: JANE ZHENG PComments: Neutral Head Position, no | | neck flexion or extension attempted. Smooth IV induction, mask airway | | established.Direct Laryngoscopy with Jose Laryngoscope, ETT placed under video | | guidance. BSEB/ETCO2 (auscultation and capnography) to confirm placement. Depth noted. | | Ventilator on.Electronically Signed by: Jane Zheng MD | | ESig date/time: 09/08/2017 7:57 | |Tube depth: 22 cm | |Tube secured with: adhesive tape | |Trauma: none | |Tube placement verification: carbon dioxide detection, equal bilateral breath sounds, bilat eral chest rise and video laryngoscope | |Performing provider: JANE ZHENG | | | |Comments: Neutral Head Position, no neck flexion or extension attempted. | |Smooth IV induction, mask airway established. | |Direct Laryngoscopy with Jose Laryngoscope, ETT placed under video guidance. BSEB/ETCO2 (auscultation and capnography) to confirm placement. Depth noted. Ventilator on. | | | | | |Electronically Signed by: Jane Zheng MD ESig date/time : 09/08/2017 7:57 | | | + + documented in this encounter Visit Diagnoses Not on filedocumented in this encounter Administered Medications + +--------+ +------+------+------+ | Medication Order | MAR | Action | Dose | Rate | Site | | | Action | Date | | | | + +--------+ +------+------+------+ | ceFAZolin in saline (ANCEF) | Given | 09/08/20 | 2 g | | | | IVPB 2 g 2 g, Intravenous, | | 17 7:47 | | | | | Administer over 30 Minutes, Prior | | AM PDT | | | | | to Incision, Starting Ashley | | | | | | | 09/08/17 at 0628, For 1 dose, | | | | | | | Administer within 1 hour of | | | | | | | surgical incision. Keep in | | | | | | | refrigerator., Pre-op, | | | | | | | Indications: Surgical Prophylaxis | | | | | | + +--------+ +------+------+------+ +---+---+ | | | +---+---+ + +-------+ +------+---+---+ | dexamethasone (DECADRON) 10 | Given | 09/08/20 | 8 mg | | | | mg/mL injection Intravenous, | | 17 7:46 | | | | | PRN, Starting Ashley 09/08/17 at | | AM PDT | | | | | 0746, Anesthesia Intra-op | | | | | | + +-------+ +------+---+---+ +---+---+ | | | +---+---+ + +-------+ +--------+---+---+ | fentaNYL (PF) injection | Given | 09/08/20 | 50 mcg | | | | Intravenous, PRN, Pain, Starting | | 17 7:49 | | | | | Ashley 09/08/17 at 0749, Anesthesia | | AM PDT | | | | | Intra-op | | | | | | + +-------+ +--------+---+---+ +-------+ +--------+---+---+ | Given | 09/08/20 | 50 mcg | | | | | 17 7:46 | | | | | | AM PDT | | | | +-------+ +--------+---+---+ +---+---+ | | | +---+---+ + +-------+ +--------+---+---+ | HYDROmorphone (DILAUDID) 2 | Given | 09/08/20 | 0.5 mg | | | | mg/mL injection Intravenous, | | 17 10:03 | | | | | PRN, Pain, Starting Ashley 09/08/17 | | AM PDT | | | | | at 0750, Anesthesia Intra-op | | | | | | + +-------+ +--------+---+---+ +-------+ +--------+---+---+ | Given | 09/08/20 | 0.5 mg | | | | | 17 8:46 | | | | | | AM PDT | | | | +-------+ +--------+---+---+ | Given | 09/08/20 | 1 mg | | | | | 17 7:50 | | | | | | AM PDT | | | | +-------+ +--------+---+---+ +---+---+ | | | +---+---+ + +-------+ +-----+---+---+ | magnesium sulfate 500 mg/mL | Given | 09/08/20 | 1 g | | | | injection PRN, Starting Ashley | | 17 8:15 | | | | | 09/08/17 at 0815, Anesthesia | | AM PDT | | | | | Intra-op | | | | | | + +-------+ +-----+---+---+ +---+---+ | | | +---+---+ + +-------+ +------+---+---+ | midazolam (VERSED) 1 mg/mL | Given | 09/08/20 | 1 mg | | | | injection Intravenous, PRN, | | 17 7:49 | | | | | Anxiety, Starting Ashley 09/08/17 at | | AM PDT | | | | | 0746, Anesthesia Intra-op | | | | | | + +-------+ +------+---+---+ +-------+ +------+---+---+ | Given | 09/08/20 | 1 mg | | | | | 17 7:46 | | | | | | AM PDT | | | | +-------+ +------+---+---+ +---+---+ | | | +---+---+ + +-------+ +--------+---+---+ | propofol (DIPRIVAN) injection | Given | 09/08/20 | 140 mg | | | | Intravenous, PRN, Starting Ashley | | 17 7:49 | | | | | 09/08/17 at 0749, Anesthesia | | AM PDT | | | | | Intra-op | | | | | | + [...] | | +---+---+ + +-------+ +--------+---+---+ | succinylcholine (ANECTINE) | Given | 09/08/20 | 100 mg | | | | injection Intravenous, PRN, | | 17 9:19 | | | | | Starting Ashley 09/08/17 at 0749, | | AM PDT | | | | | Anesthesia Intra-op | | | | | | + +-------+ +--------+---+---+ +-------+ +--------+---+---+ | Given | 09/08/20 | 100 mg | | | | | 17 7:49 | | | | | | AM PDT | | | | +-------+ +--------+---+---+ +---+---+ | | | +---+---+ + +-------+ +-----+---+---+ | tranexamic acid in 50 mL NS | Given | 09/08/20 | 1 g | | | | (CYKLOKAPRON) IVPB (simple) | | 17 7:50 | | | | | Intravenous, Administer over 15 | | AM PDT | | | | | Minutes, NOMANN, Starting Ashley | | | | | | | 09/08/17 at 0750, Anesthesia | | | | | | | Intra-op | | | | | | + +-------+ +-----+---+---+ +---+---+ | | | +---+---+ documented in this encounter"
--- OUTSIDE RECORDS SUMMARY | ~2019-11-02 | XMS | Encounter Summary ---
Demographics + + + | Address | [address] | | | [place] [address] | + + + | Home Phone | | + + + | Preferred Language | Unknown | + + + | Marital Status | | + + + | Catholic Affiliation | 1028 | + + + | Race | Unknown | + + + | Ethnic Group | Unknown | + + + Author + + + | Author | [facility] | | | and [place] | + + + | Organization | [facility] | | | and [place] | + + + | Address | Unknown | + + + | Phone | Unavailable | + + + Support + + + + + | Name | Relationship | Address | Phone | + + + + + | Pina Momin | ECON | [address] | | | | | [place] [address] | | + + + + + Care Team Providers + +------+ + | Care Bunch Maker Name | Role | Phone | + +------+ + | Dave Franco MD | PCP | | + +------+ + Reason for Visit +---------+ + | Reason | Comments | +---------+ + | Post Op | PO Call | +---------+ + Encounter Details +--------+ + + + + | Date | Type | Department | Care Team | Description | +--------+ + + + + | 09/15/ | Telephone | [facility] | Ihsan Chavez, | Post Op (PO Call) | | 2017 | | NEUROSURGERY [address] | DO [address] | | | | | [address] | [address] [place], [place] | | | | | [place] | [address] | | | | | [address] | | | | | | [phone] | | | +--------+ + + + [...]
--- OUTSIDE RECORDS SUMMARY | ~2019-11-02 | XMS | Encounter Summary ---
Demographics + + + | Address | [address] | | | [place] [address] | + + + | Home Phone | | + + + | Preferred Language | Unknown | + + + | Marital Status | Single | + + + | Rastafarian Affiliation | Unknown | + + + | Race | Unknown | + + + | Ethnic Group | Other Race | + + + Author + + + | Author | [facility] | + + + | Organization | [facility] | + + + | Address | Unknown | + + + | Phone | Unavailable | + + + Support + + +---------+ + | Name | Relationship | Address | Phone | + + +---------+ + | None None | ECON | Unknown | Unavailable | + + +---------+ + Care Team Providers + +------+ + | Care Maintenance Planning Clerk Name | Role | Phone | + +------+ + PCP | Unavailable | + +------+ + Encounter Details +--------+ + + + + | Date | Type | Department | Care Team | Description | +--------+ + + + + | 01/10/ | Ancillary | [facility] | | | | 2007 | Registratio | Practice [address] | | | | | n | [facility], | | | | | | [place] [address] | | | | | | [phone] | | | +--------+ + + + [...]
--- OUTSIDE RECORDS SUMMARY | ~2019-11-02 | XMS | Encounter Summary ---
Demographics + + + | Address | [address] | | | [place] [address] | + + + | Home Phone | | + + + | Preferred Language | Unknown | + + + | Marital Status | Single | + + + | Protestant Affiliation | Unknown | + + + | Race | Unknown | + + + | Ethnic Group | Other Race | + + + Author + + + | Author | [facility] | + + + | Organization | [facility] | + + + | Address | Unknown | + + + | Phone | Unavailable | + + + Support + + +---------+ + | Name | Relationship | Address | Phone | + + +---------+ + | None None | ECON | Unknown | Unavailable | + + +---------+ + Care Team Providers + +------+ + | Care Rubber Splicer Name | Role | Phone | + +------+ + PCP | Unavailable | + +------+ + Encounter Details +--------+ + + + + | Date | Type | Department | Care Team | Description | +--------+ + + + + | 01/03/ | Results | Registration [id number] | Other, Faculty | | | 2007 | Only | [address] | [phone] | | | | | Rd Mailcode: RP[address] | | | | | | [place], [place] | | | | | | [address] | | | | | | [phone] | | | +--------+ + + + [...] | + +--------+ + + + | DERMATOPATHOLOGY(WET Routin | 01/03/2008 | | Results for this | | [facility]) | e | | | procedure are in the | | | | | | results section. | + +--------+ + + + documented in this encounter Results DERMATOPATHOLOGY(WET [place]) (01/03/2008) + + + + + + | Component | Value | Ref Range | Performed | Pathologist | | | | | At | Signature | + + + + + + | DERMATOPATH | THIS IS AN ADDENDUM | | | | | OLOGY(WET | REPORT SOURCE OF | | | | | MNT) | SPECIMEN:A FIRST TISSUE | | | | | | [place] [address] | | | | | | CLINICAL | | | | | | DESCRIPTION:5mm, rt. | | | | | | thigh; red, brown macule | | | | | | x 4 mo.; ecchymosis, | | | | | | vascular neoplasm;R/O | | | | | | melanoma. GROSS | | | | | | DESCRIPTION:Rt. thigh, | | | | | | punch 0.6 x 0.5 x 0.5 | | | | | | cm, bisected. | | | | | | MICROSCOPIC | | | | | | DESCRIPTION:There is a | | | | | | thinned epidermis | | | | | | overlying marked solar | | | | | | elastosis where thereis | | | | | | brown dermal pigment and | | | | | | a few multinucleated | | | | | | epithelioid | | | | | | histiocytes.There is | | | | | | also focal spongiosis. 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 There is no | | | | | | evidence of aneoplasm | | | | | | such as hemangioma or | | | | | | melanoma. Special | | | | | | stains will be | | | | | | obtainedto further | | | | | | characterize the brown | | | | | | pigment. BRIANNA/jyi01/07/08 | | | | | | ADDENDUM:Special stains | | | | | | for iron / hemosiderin | | | | | | (Perls) stain strongly | | | | | | positive ofthe brown | | | | | | dermal pigment while | | | | | | special stains for | | | | | | melanin | | | | | | (Mk-Roverto)are | | | | | | negative. 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 | | | | | | BRIANNA/jyi01/09/08Rendering | | | | | | Diagnostician: Tera | | | | | | Blanco Gonzales Jr., | | | | | | MRufinoPathologistElectroni | | | | | | kelvin Signed 01/09/2008 | | | | + + + + + + + + | Specimen | + + | | + + + + + | Narrative | Performed At | + + + | Ordered by Warren Bermudez MD | | + + + + + + + + | Performing | Address | City/State/Zipcode | Phone Number | | Organization | | | | + + + + + | [facility] | [address] | [place] [address] | | | DERMATOPATHOLOGY | Stanislaw Lino | | | + + + + + documented in this encounter Visit Diagnoses Not on filedocumented in this encounter"
--- OUTSIDE RECORDS SUMMARY | ~2019-11-02 | XMS | Encounter Summary ---
Demographics + + + | Address | [address] | | | [place] [address] | + + + | Home Phone | | + + + | Preferred Language | Unknown | + + + | Marital Status | | + + + | Nondenominational Affiliation | 1028 | + + + | Race | Unknown | + + + | Ethnic Group | Unknown | + + + Author + + + | Author | [facility] | | | and [place] | + + + | Organization | [facility] | | | and [place] | + + + | Address | Unknown | + + + | Phone | Unavailable | + + + Support + + + + + | Name | Relationship | Address | Phone | + + + + + | Pina Momin | ECON | [address] | | | | | [place] [address] | | + + + + + Care Team Providers + +------+ + | Care Parole Agent Name | Role | Phone | + +------+ + | Dave Franco MD | PCP | | + +------+ + Encounter Details +--------+ + + + + | Date | Type | Department | Care Team | Description | +--------+ + + + + | 08/10/ | Abstract | [facility] | Ihsan Chavez, | | | 2016 | | NEUROSURGERY [address] | DO [address] | | | | | [address] | [address] [place] [address] | | | | | [place] | [address] | | | | | [address] | | | | | | [phone] | | | +--------+ + + + [...] + + +---------+ + | Yes | | | Social | + + +---------+ + + + [...]
--- OUTSIDE RECORDS SUMMARY | ~2019-11-02 | XMS | Encounter Summary ---
Demographics + + + | Address | [address] | | | [place] [address] | + + + | Home Phone | | + + + | Preferred Language | Unknown | + + + | Marital Status | | + + + | Presybeterian Affiliation | 1028 | + + + | Race | Unknown | + + + | Ethnic Group | Unknown | + + + Author + + + | Author | [facility] | | | and [place] | + + + | Organization | [facility] | | | and [place] | + + + | Address | Unknown | + + + | Phone | Unavailable | + + + Support + + + + + | Name | Relationship | Address | Phone | + + + + + | Pina Momin | ECON | [address] | | | | | [place] [address] | | + + + + + Care Team Providers + +------+ + | Care Still Worker Helper Name | Role | Phone | + +------+ + | Jorge Diaz DO | PCP | | + +------+ + Encounter Details +--------+ + + + + | Date | Type | Department | Care Team | Description | +--------+ + + + + | 10/10/ | [facility] | [facility] | Ihsan Chavez, | S/P lumbar fusion; | | 2018 | Encounter | MED CTR XRAY [address] | DO [address] | Other idiopathic | | | | [place] [address] | [address] [place], [place] | scoliosis, lumbar | | | | [place] [address] | [address] | region; Spinal | | | | [phone] | | stenosis of lumbar | | | | | | region, unspecified | | | | | | whether neurogenic | | | [...] + + documented as of this encounter Medications at Time of Discharge + + + +---------+--------+ + | Medication | Sig | Dispensed | Refills | Start | End Date | | | | | | Date | | + + + +---------+--------+ + | aspirin 81 MG | Take 81 mg by mouth | | 0 | | | | tablet | Daily. | | | | | + + + +---------+--------+ + | finasteride | Take 5 mg by mouth | | 0 | | | | (PROSCAR) 5 mg | Daily. | | | | | | tablet | | | | | | + + + +---------+--------+ + | Multiple Vitamin | Take by mouth. | | 0 | | | | (MULTI-VITAMINS PO) | | | | | | + + + +---------+--------+ + | olmesartan | Take 20 mg by mouth | | 0 | | | | (BENICAR) 20 mg | Daily. | | | | | | tablet | | | | | | + + + +---------+--------+ + | omeprazole | Take 20 mg by mouth | | 0 | | | | (PRILOSEC) 20 mg | every morning | | | | | | capsule | (before breakfast). | | | | | + + + +---------+--------+ + | sertraline | Take 100 mg by mouth | | 0 | | | | (ZOLOFT) 100 mg | Daily. | | | | | | tablet | | | | | | + + + +---------+--------+ + | simvastatin | Take 5 mg by mouth | | 0 | | | | (ZOCOR) 5 mg tablet | nightly. | | | | | + + + +---------+--------+ + | terazosin (HYTRIN) | Take 5 mg by mouth | | 0 | | | | 5 mg capsule | nightly. | | | | | + + + +---------+--------+ + documented as of this encounter Plan of Treatment Not on filedocumented as of this encounter Procedures + +--------+ + + + | Procedure Name | Priori | Date/Time | Associated Diagnosis | Comments | | | ty | | | | + +--------+ + + + | XR LUMBAR SPINE 2 [place] | Routin | 10/10/2018 | S/P lumbar fusion | Results for this | | 3 VW | e | 10:36 AM | Other idiopathic | procedure are in the | | | | PST | scoliosis, lumbar | results section. | | | | | region Spinal | | | | | | stenosis of lumbar | | | | | | region, unspecified | | | | | | whether neurogenic | | | | | | claudication present | | + +--------+ + + + documented in this encounter Results XR Lumbar Spine 2 or 3 Vw (10/10/2018 10:36 AM PST) + + | Specimen | + + | | + + + + + | Narrative | Performed At | + + + | CLINICAL INFORMATION: Postoperative. COMPARISON: 06/27/2018 | [facility] | | and 12/12/2017. FINDINGS: AP and lateral views of the | | | lumbosacral spine. Posterior pedicle screw and oksana fusion changes | | | at L2-L3 with stable positioning of the interbody graft markers. | | | No evidence of hardware complication. Stable lumbar alignment | | | with mild dextrocurvature and slight retrolisthesis of L1. Normal | | | height of the vertebral bodies. IMPRESSION - No radiographic | | | evidence of interval complication. Dictated and Signed by: | | | Sonu Aguirre MD Electronically signed: 10/10/2018 11:39 AM | | + + + + + | Procedure Note | + + | Raymond, Rad Results In - 10/10/2018 11:42 AM PST | | CLINICAL INFORMATION: Postoperative. | | | | COMPARISON: 06/27/2018 and 12/12/2017. | | | | FINDINGS: | | AP and lateral views of the lumbosacral spine. | | | | Posterior pedicle screw and oksana fusion changes at L2-L3 with stable positioning | | of the interbody graft markers. No evidence of hardware complication. | | | | Stable lumbar alignment with mild dextrocurvature and slight retrolisthesis of | | L1. Normal height of the vertebral bodies. | | | | IMPRESSION - No radiographic evidence of interval complication. | | | | Dictated and Signed by: Sonu Aguirre MD | | Electronically signed: 10/10/2018 11:39 AM | + + + +---------+ + + | Performing | Address | City/State/Zipcode | Phone Number | | Organization | | | | + +---------+ + + | [facility] | | | | + +---------+ + + documented in this encounter Visit Diagnoses + + | Diagnosis | + + | S/P lumbar fusion Arthrodesis status | + + | Other idiopathic scoliosis, lumbar region | + + | Spinal stenosis of lumbar region, unspecified whether neurogenic claudication present | + + documented in this encounter"
--- OUTSIDE RECORDS SUMMARY | ~2019-11-02 | XMS | Encounter Summary ---
Demographics + + + | Address | [address] | | | [place] [address] | + + + | Home Phone | | + + + | Preferred Language | Unknown | + + + | Marital Status | | + + + | Cheondoism Affiliation | 1028 | + + + | Race | Unknown | + + + | Ethnic Group | Unknown | + + + Author + + + | Author | [facility] | | | and [place] | + + + | Organization | [facility] | | | and [place] | + + + | Address | Unknown | + + + | Phone | Unavailable | + + + Support + + + + + | Name | Relationship | Address | Phone | + + + + + | Pina Momin | ECON | [address] | | | | | [place] [address] | | + + + + + Care Team Providers + +------+ + | Care Floor Care Technician Name | Role | Phone | + [...] | | Procedures | [address], | [address] Phone: | | | | | [place] OFFICE | [place] | [phone] | | | | | CONSULTATION | [address] | Fax: | | | | | NEW/ESTAB | Phone: | [phone] | | | | | PATIENT 60 | [phone] | | | | | | MIN | | | +--------+--------+ + + + + Encounter Details +--------+---------+ + + + | Date | Type | Department | Care Team | Description | +--------+---------+ + + + | 08/22/ | Office | [facility] | Ihsan Chavez, | Scoliosis of lumbar | | 2017 | Visit | NEUR[address]URGERY [address] | DO [address] | spine, unspecified | | | | [address] | [address] [place], [place] | scoliosis type | | | | [place] | [address] | (Primary Dx); | | | | [address] | | Spondylolisthesis of | | | | [phone] | | lumbar region; | | | [...] m the original. Ihsan Chavez, DO [address] [place], [place] [id number] FAX: NEUROSURGERY HISTORY AND PHYSICAL EXAMINATION CHIEF COMPLAINT: Chief Complaint Patient presents with Back Pain lower back pain. HISTORY OF PRESENT ILLNESS: The patient is a 77 y.o. male with the complaint of back sympt oms that began many years ago, but is much worse over the last two months. The patient desc ribes significant difficulty walking after round-up in [place]. The symptoms have been ra pidly worsening. 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 CRANIAL NERVES: II: Acuity is [...] Intrinsics 5 5 Ulnar Intrinsics 5 5 Assistant Program Director Strength 5 5 Hip Flexion 5 5 [...]
--- OUTSIDE RECORDS SUMMARY | ~2019-11-02 | XMS | Encounter Summary ---
Demographics + + + | Address | [address] | | | [place] [address] | + + + | Home Phone | | + + + | Preferred Language | Unknown | + + + | Marital Status | | + + + | Druze Affiliation | 1028 | + + + | Race | Unknown | + + + | Ethnic Group | Unknown | + + + Author + + + | Author | [facility] | | | and [place] | + + + | Organization | [facility] | | | and [place] | + + + | Address | Unknown | + + + | Phone | Unavailable | + + + Support + + + + + | Name | Relationship | Address | Phone | + + + + + | Pina Momin | ECON | [address] | | | | | [place] [address] | | + + + + + Care Team Providers + +------+ + | Care Wildlife Biology Technician Name | Role | Phone | [...] | MED CTR EXTERNAL | MD [address] | | | | | IMAGING | [address] | | | | | [phone] | [place] [address] | | +--------+ + + + + [...] for comparison only - no result from [place]. | [facility] | + + + + +---------+ + + | Performing | Address | City/State/Zipcode | Phone Number | | Organization | | | | + +---------+ + + | [facility] | | | | + +---------+ + + documented in this encounter Visit Diagnoses Not on filedocumented in this encounter"
--- OUTSIDE RECORDS SUMMARY | ~2019-11-02 | XMS | Encounter Summary ---
Demographics + + + | Address | [address] | | | [place] [address] | + + + | Home Phone | | + + + | Preferred Language | Unknown | + + + | Marital Status | | + + + | Christian Affiliation | 1028 | + + + | Race | Unknown | + + + | Ethnic Group | Unknown | + + + Author + + + | Author | [facility] | | | and [place] | + + + | Organization | [facility] | | | and [place] | + + + | Address | Unknown | + + + | Phone | Unavailable | + + + Support + + + + + | Name | Relationship | Address | Phone | + + + + + | Pina Momin | ECON | [address] | | | | | [place] [address] | | + + + + + Care Team Providers + +------+ + | Care Pocket Cutter Name | Role | Phone | + [...] | MED CTR EXTERNAL | MD [address] | | | | | IMAGING | [address] | | | | | [phone] | [place] [address] | | +--------+ + + + + [...] 1 OR 2 VW | Routin | 09/22/2009 | | Results for this | | | e | 10:20 AM | | procedure are in the | | | | PST | | results section. | + +--------+ + + + documented in this encounter Results XR Pelvis 1 or 2 Vw (09/22/2009 10:20 AM PST) + + | Specimen | + + | | + + + + + | Narrative | Performed At | + + + | External films for comparison only - no result from [place]. | [facility] | + + + + +---------+ + + | Performing | Address | City/State/Zipcode | Phone Number | | Organization | | | | + +---------+ + + | [facility] | | | | + +---------+ + + documented in this encounter Visit Diagnoses Not on filedocumented in this encounter"
--- OUTSIDE RECORDS SUMMARY | ~2019-11-02 | XMS | Encounter Summary ---
Demographics + + + | Address | [address] | | | [place] [address] | + + + | Home Phone | | + + + | Preferred Language | Unknown | + + + | Marital Status | | + + + | Orthodox Affiliation | 1028 | + + + | Race | Unknown | + + + | Ethnic Group | Unknown | + + + Author + + + | Author | [facility] | | | and [place] | + + + | Organization | [facility] | | | and [place] | + + + | Address | Unknown | + + + | Phone | Unavailable | + + + Support + + + + + | Name | Relationship | Address | Phone | + + + + + | Pina Momin | ECON | [address] | | | | | [place] [address] | | + + + + + Care Team Providers + +------+ + | Care Electronics Specialist Name | Role | Phone | + [...] | MED CTR EXTERNAL | [address] | | | | | IMAGING | [address] | | | | | [phone] | [place] [address] | | +--------+ + + + + [...] for comparison only - no result from [place]. | [facility] | + + + + +---------+ + + | Performing | Address | City/State/Zipcode | Phone Number | | Organization | | | | + +---------+ + + | [facility] | | | | + +---------+ + + documented in this encounter Visit Diagnoses Not on filedocumented in this encounter"
--- OUTSIDE RECORDS SUMMARY | ~2019-11-02 | XMS | Encounter Summary ---
Demographics + + + | Address | [address] | | | [place] [address] | + + + | Home Phone | | + + + | Preferred Language | Unknown | + + + | Marital Status | | + + + | Buddhist Affiliation | 1028 | + + + | Race | Unknown | + + + | Ethnic Group | Unknown | + + + Author + + + | Author | [facility] | | | and [place] | + + + | Organization | [facility] | | | and [place] | + + + | Address | Unknown | + + + | Phone | Unavailable | + + + Support + + + + + | Name | Relationship | Address | Phone | + + + + + | Pina Momin | ECON | [address] | | | | | [place] [address] | | + + + + + Care Team Providers + +------+ + | Care Box Lining Machine Operator Name | Role | Phone | + [...] | | | | [place] | [address] | | | | | [address] | | | | | | [phone] | | | +--------+ + + + [...]
--- OUTSIDE RECORDS SUMMARY | ~2019-11-02 | XMS | Encounter Summary ---
Demographics + + + | Address | [address] | | | [place] [address] | + + + | Home Phone | | + + + | Preferred Language | Unknown | + + + | Marital Status | | + + + | Yarsanism Affiliation | 1028 | + + + | Race | Unknown | + + + | Ethnic Group | Unknown | + + + Author + + + | Author | [facility] | | | and [place] | + + + | Organization | [facility] | | | and [place] | + + + | Address | Unknown | + + + | Phone | Unavailable | + + + Support + + + + + | Name | Relationship | Address | Phone | + + + + + | Pina Momin | ECON | [address] | | | | | [place] [address] | | + + + + + Care Team Providers + +------+ + | Care Sound Equipment Mechanic Name | Role | Phone | + +------+ + | Jorge Diaz DO | PCP | | + +------+ + Encounter Details +--------+ + + + + | Date | Type | Department | Care Team | Description | +--------+ + + + + | 10/04/ | Orders Only | [facility] | Ihsan Chavez, | Spinal stenosis of | | 2018 | | NEUROSUR[address]ERY [address] | DO [address] | lumbar region, | | | | [address] | [address] [place], [place] | unspecified whether | | | | [place] | [address] | neurogenic | | | | [address] | | claudication present | | | | [phone] | | (Primary Dx); S/P | | | | | | lumbar fusion; Other | | | | | | idiopathic | | | | | | scoliosis, lumbar | | | | | | region | +--------+ + + + + Social [...] | Procedure Note | + + | Alex Andrade Results In - 10/10/2018 11:42 AM PST [...] region, unspecified whether neurogenic claudication present | | - Primary | + + | S/P lumbar fusion Arthrodesis status | + + | Other idiopathic scoliosis, lumbar region | + + documented in this encounter"
--- OUTSIDE RECORDS SUMMARY | ~2019-11-02 | XMS | Encounter Summary ---
Demographics + + + | Address | [address] | | | [place] [address] | + + + | Home Phone | | + + + | Preferred Language | Unknown | + + + | Marital Status | | + + + | Baptist Affiliation | 1028 | + + + | Race | Unknown | + + + | Ethnic Group | Unknown | + + + Author + + + | Author | [facility] | | | and [place] | + + + | Organization | [facility] | | | and [place] | + + + | Address | Unknown | + + + | Phone | Unavailable | + + + Support + + + + + | Name | Relationship | Address | Phone | + + + + + | Pina Momin | ECON | [address] | | | | | [place] [address] | | + + + + + Care Team Providers + +------+ + | Care Systems Accountant Name | Role | Phone | + +------+ + | Dave Franco MD | PCP | | + +------+ + Encounter Details +--------+ + + + + | Date | Type | Department | Care Team | Description | +--------+ + + + + | 08/22/ | Orders Only | [facility] | Ihsan Chaevz, | Spinal stenosis of | | 2017 | | NEUROSUR[address] | DO [address] | lumbar region, | | | | [address] | [address] [place], [place] | unspecified whether | | | | [place] | [address] | neurogenic | | | | [address] | | claudication | | | | [phone] | | present; | | | | [...] + | [facility] | [address] | [place] | [phone] | | [facility] | | [address] | | | - LABORATORY | | [...] | | | | JEANNIE LAUREN MD ([id number]) | | | | | | on [...]
--- OUTSIDE RECORDS SUMMARY | ~2019-11-02 | XMS | Encounter Summary ---
Demographics + + + | Address | [address] | | | [place] [address] | + + + | Home Phone | | + + + | Preferred Language | Unknown | + + + | Marital Status | | + + + | Christianity Affiliation | 1028 | + + + | Race | Unknown | + + + | Ethnic Group | Unknown | + + + Author + + + | Author | [facility] | | | and [place] | + + + | Organization | [facility] | | | and [place] | + + + | Address | Unknown | + + + | Phone | Unavailable | + + + Support + + + + + | Name | Relationship | Address | Phone | + + + + + | Pina Momin | ECON | [address] | | | | | [place] [address] | | + + + + + Care Team Providers + +------+ + | Care Rn Telephone Triage Name | Role | Phone | + [...] | | | | | | | CT | | | | | | | ARTHRODESIS | | | | | | | POSTERIOR/PO | | | | | | | STEROLATERAL | | | | | | | LUMBAR CT | | | | | | | LUMBAR SPINE | | | | | | | | | | | | | | FUSION,ANTER | | | | | | | APPRCH CT | | | | | | | [...] | | | | | | ION CT | | | | | | | [...] Description | +--------+---------+ + + + | 09/08/ | Surgery | [facility] | Ihsan Chavez, | L2-3 LAIF | | 2017 | | MED CTR OR INTRA OP | DO [address] | | | | | [address] | [address] | | | | | [place], [place] | [address] | | | | | [address] | | | | | | [phone] | | | +--------+---------+ + + + [...] describes significant difficulty walking after round-up in [place]. The symptoms have been rapidly worsening. Herates [...] of admission the patient was admitted to [facility] and underwent a L2-L3 fusion. Patient was [...] signed by: Ihsan Chavez, 09/10/2017 7:52 [facility] documented in this en counter Discharge Instructions [...] seat, and a shower chair in your ba throom. Take your medication exactly as directed. Don [...] month post op appointment before your appointment. [phone] [employer]. [address] [place] [address]. All righ ts reserved. This information is [...] might be different f rom the original. 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 MOTOR EXAM: Motor strength is improved [...] | | [place] | | | n [place] | | | | | | Frame, [...] | | [place] | | | [place] | | | | | | Frame, [...] | | + +---------+ + + [place] C-Miguel Stats No Charge (09/08/2017 10:22 AM PDT) + [...] | | Screen | | | [facility] | | [...] | + + + + + | [facility] | [address] | [place] | | | [facility] | | [address] | | | - BLOOD BANK | | | | + + + + + documented in this encounter Visit Diagnoses Not on filedocumented in this encounter Administered Medications + +--------+ +--------+------+ + | Medication Order | MAR | Action | Dose | Rate | Site | | | Action | Date | | | | + +--------+ +--------+------+ + | bupivacaine 0.25%-EPINEPHrine | Given | 09/08/20 | 30 mLs | | Surgical | | 1:200,000 (PF) injection PRN, | | 17 10:08 | | | Site | | Starting Ashley 09/08/17 at 1008, | | AM PDT | | | | | Intra-op | | | | | | + +--------+ +--------+------+ + +---+---+ | | | +---+---+ + +-------+ [...] HOURS PRN, Itching, | | | Starting [facility] 09/08/17 at 1227, | | | Oral route is preferred., | | | Post-op/Phase II | | + +---+ | | | + +---+ | diphenhydrAMINE (BENADRYL) | | | injection 12.5 mg 12.5 mg, | | | Intravenous, EVERY 4 HOURS PRN, | | | Itching, Starting [facility] 09/08/17 at | | | 1227, Oral route is preferred., | | | Post-op/Phase II | | + +---+ | | | + +---+ | diphenhydrAMINE (BENADRYL) | | | tablet 25 mg 25 mg, Oral, EVERY | | | 4 HOURS PRN, Itching, Starting | | | [facility] 09/08/17 at 1227, Oral route | | [...] | | | | First dose on [facility] 09/08/17 at | | AM PDT [...] +---+---+ | | | +---+---+ + +-------+ +--------+---+ + | ropivacaine (NAROPIN) 2 mg/mL | Given | 09/08/20 | 60 mLs | | Surgical | | (0.2%) injection PRN, Starting | | 17 10:08 | | | Site | | [facility] 09/08/17 at 1008, Intra-op | | AM PDT | | | | + +-------+ +--------+---+ + +---+---+ | | | +---+---+ + +-------+ +--------+---+---+ | senna (SENOKOT) tablet 8.6 mg | Given | 09/10/20 | 8.6 mg | | | | 8.6 mg, Oral, 2 TIMES DAILY, | | 17 10:22 | | | | | First dose on [facility] 09/08/17 at | | AM PDT [...] +--------+---+---+ +---+---+ | | | +---+---+ + + [...] +-------+ +------+---+---+ +-------+ +------+---+---+ | Given | 10/20 | 5 mg | | | | | 17 9:01 | | | | | | PM PDT | | | | +-------+ +------+---+---+ +---+---+ | | | +---+---+ documented in this encounter
--- OUTSIDE RECORDS SUMMARY | ~2019-11-02 | XMS | Encounter Summary ---
Demographics + + + | Address | [address] | | | [place] [address] | + + + | Home Phone | | + + + | Preferred Language | Unknown | + + + | Marital Status | | + + + | Church Affiliation | 1028 | + + + | Race | Unknown | + + + | Ethnic Group | Unknown | + + + Author + + + | Author | [facility] | | | and [place] | + + + | Organization | [facility] | | | and [place] | + + + | Address | Unknown | + + + | Phone | Unavailable | + + + Support + + + + + | Name | Relationship | Address | Phone | + + + + + | Pina Momin | ECON | [address] | | | | | [place] [address] | | + + + + + Care Team Providers + +------+ + | Care Credit Risk Analyst Name | Role | Phone | [...] + + | 09/08/ | Anesthesia | [facility] | Jane Zheng | | | 2017 | Event | MED CTR OR INTRA OP | MD Maisha [address] | | | | | [address] | [address] [place] | | | | | [place] | [address] | | | | | [address] | | | | | | [phone] | | | | | | | Peter Austin MD | | | | | | [address] | | | | | | [place] | | | | | | [address] | | | | | | | [...] 09/10/17 1230 by | | eral | [id number] catheter system; | Josephine Holloway, | Kenroy [...] 7:57 AM PDT Anesthesia Airway | | Losprhayo97/26/2017 7:50Preprocedure check: patient identified, oxygen, airway assessed, [...]
--- OUTSIDE RECORDS SUMMARY | ~2019-11-02 | XMS | Encounter Summary ---
Demographics + + + | Address | [address] | | | [place] [address] | + + + | Home Phone | | + + + | Preferred Language | Unknown | + + + | Marital Status | | + + + | Shinto Affiliation | 1028 | + + + | Race | Unknown | + + + | Ethnic Group | Unknown | + + + Author + + + | Author | [facility] | | | and [place] | + + + | Organization | [facility] | | | and [place] | + + + | Address | Unknown | + + + | Phone | Unavailable | + + + Support + + + + + | Name | Relationship | Address | Phone | + + + + + | Pina Momin | ECON | [address] | | | | | [place] [address] | | + + + + + Care Team Providers + +------+ + | Care Youth Development Specialist Name | Role | Phone | [...] | MED CTR EXTERNAL | MD Arpita [address] | | | | | IMAGING | [address] | | | | | [phone] | [place] [address] | | +--------+ + + + + [...] for comparison only - no result from [place]. | [facility] | + + + + +---------+ + + | Performing | Address | City/State/Zipcode | Phone Number | | Organization | | | | + +---------+ + + | [facility] | | | | + +---------+ + + documented in this encounter Visit Diagnoses Not on filedocumented in this encounter"
--- OUTSIDE RECORDS SUMMARY | ~2019-11-02 | XMS | Encounter Summary ---
Demographics + + + | Address | [address] | | | [place] [address] | + + + | Home Phone [...] + | Pina Momin | ECON | [address] | | | | | [place] [address] | | + + + + + Care Team Providers + +------+ + | Care Travel Information Center Supervisor Name | Role | Phone | + +------+ + | Jorge Diaz DO | PCP | | + +------+ + Encounter Details +--------+ + + + + | Date | Type | Department | Care Team | Description | +--------+ + + + + | 10/10/ | [facility] | [facility] | Ihsan Chavez, | S/P lumbar fusion; | | 2018 | Encounter | MED CTR XRAY [address] | DO [address] | Other idiopathic | | | | [place] | [address] [place], [place] | scoliosis, lumbar | | | | [place] [address] | [address] | region; Spinal | | | | [phone] | | stenosis of lumbar | | [...]
--- OUTSIDE RECORDS SUMMARY | ~2019-11-02 | XMS | Encounter Summary ---
Demographics + + + | Address | [address] | | | [place] [address] | + + + | Home Phone | | + + + | Preferred Language | Unknown | + + + | Marital Status | | + + + | Sabianist Affiliation | 1028 | + + + | Race | Unknown | + + + | Ethnic Group | Unknown | + + + Author + + + | Author | [facility] | | | and [place] | + + + | Organization | [facility] | | | and [place] | + + + | Address | Unknown | + + + | Phone | Unavailable | + + + Support + + + + + | Name | Relationship | Address | Phone | + + + + + | Pina Momin | ECON | [address] | | | | | [place] [address] | | + + + + + Care Team Providers + +------+ + | Care Roller [employer] Name | Role | Phone | + +------+ + | Dave Franco MD | PCP | | + +------+ + Encounter Details +--------+ + + + + | Date | Type | Department | Care Team | Description | +--------+ + + + + | 08/08/ | Orders Only | [facility] | Ihsan Chavez, | Back pain, | | 2017 | | NEUROSURGERY [address] | DO [address] | unspecified back | | | | [address] | [address] [place], [place] | location, | | | | [place] | [address] | unspecified back | | | | [address] | | pain laterality, | | | | [phone] | | unspecified | | | | [...] of this encounter Results XR Lumbar Spine 4 + Vw (08/08/2017 3:05 PM PDT) + + | Specimen | + + | | + + + + + | Narrative | Performed At | + + + | XR LUMBAR SPINE 4 + VW 08/08/2017 3:05 PM HISTORY: Back pain, new | [facility] | | patient evaluation. COMPARISON: 05/24/2017 FINDINGS: Similar | | | dextroconvex scoliosis of the lumbar spine. Vertebral body heights are | | | maintained. Multilevel disc marginal osteophytosis and facet | | | spondylosis. Multilevel mild intervertebral disc space narrowing. | | | Grade 1 anterolisthesis of L3 over L4 measuring 5.5 mm on flexion | | | imaging and resolves on extension imaging. Grade 1 | | | anterolisthesis of L4 over L5 measuring 9 mm on flexion imaging and | | | measuring 3 mm on extension imaging. IMPRESSION - Dynamic | | | listhesis at L3-L4 and L4-L5 as detailed above. Mild multilevel | | | degenerative disc disease and facet spondylosis. Dextroconvex | | | curvature of the lumbar spine. Dictated and Signed by: Moshe | | | MD Royce Electronically signed: 08/08/2017 4:20 PM | | + + + + + | Procedure Note | + + | Raymond, Rad Results In - 08/08/2017 4:23 PM PDT XR LUMBAR SPINE 4 + VW 08/08/2017 3:05 | | PMHISTORY: Back pain, new patient evaluation.COMPARISON: 05/24/2017FINDINGS:Similar | | dextroconvex scoliosis of the lumbar spine. Vertebral body heights aremaintained. | | Multilevel disc marginal osteophytosis and facet spondylosis.Multilevel mild | | intervertebral disc space narrowing.Grade 1 anterolisthesis of L3 over L4 measuring 5.5 | | mm on flexion imaging andresolves on extension imaging.Grade 1 anterolisthesis of L4 | | over L5 measuring 9 mm on flexion imaging andmeasuring 3 mm on extension imaging. | | IMPRESSION -Dynamic listhesis at L3-L4 and L4-L5 as detailed above.Mild multilevel | | degenerative disc disease and facet spondylosis.Dextroconvex curvature of the lumbar | | spine.Dictated and Signed by: Moshe Crane MD Electronically signed: 08/08/2017 4:20 | | PM | |Grade 1 anterolisthesis of L3 over L4 measuring 5.5 mm on flexion imaging and | |resolves on extension imaging. | | | |Grade 1 anterolisthesis of L4 over L5 measuring 9 mm on flexion imaging and | |measuring 3 mm on extension imaging. | | | |IMPRESSION - | |Dynamic listhesis at L3-L4 and L4-L5 as detailed above. | | | |Mild multilevel degenerative disc disease and facet spondylosis. | | | |Dextroconvex curvature of the lumbar spine. | | | |Dictated and Signed by: Moshe Crane MD | | Electronically signed: 08/08/2017 4:20 PM | + + + +---------+ + [...]
--- OUTSIDE RECORDS SUMMARY | ~2019-11-02 | XMS | Encounter Summary ---
Demographics + + + | Address | [address] | | | [place] [address] | + + + | Home Phone | | + + + | Preferred Language | Unknown | + + + | Marital Status | | + + + | Mormon Affiliation | 1028 | + + + | Race | Unknown | + + + | Ethnic Group | Unknown | + + + Author + + + | Author | [facility] | | | and [place] | + + + | Organization | [facility] | | | and [place] | + + + | Address | Unknown | + + + | Phone | Unavailable | + + + Support + + + + + | Name | Relationship | Address | Phone | + + + + + | Pina Momin | ECON | [address] | | | | | [place] [address] | | + + + + + Care Team Providers + +------+ + | Care Lining Inserter Name | Role | Phone | + [...] | | | | | | | CO | | | | | | | ARTHRODESIS | | | | | | | POSTERIOR/PO | | | | | | | STEROLATERAL | | | | | | | LUMBAR CO | | | | | | | LUMBAR SPINE | | | | | | | | | | | | | | FUSION,ANTER | | | | | | | APPRCH [place] | | | | | | | [...] | | | | | | ION [place] | | | | | | | [...] + + | 09/08/ | Surgery | [facility] | Ihsan Chavez, | L2-3 LAIF | | 2017 | | MED CTR OR INTRA OP | DO [address] | | | | | [address] | [address] | | | | | [place], [place] | [address] | | | | | [address] | | | | | | [phone] | | | +--------+---------+ + + + [...] describes significant difficulty walking after round-up in [place]. The symptoms have been rapidly worsening. Herates [...] of admission the patient was admitted to [facility] and underwent a L2-L3 fusion. Patient was [...] signed by: Ihsan Chavez, 09/10/2017 7:52 [facility] documented in this en counter Discharge Instructions [...] month post op appointment before your appointment. [phone] [facility]. [address] [place] [address]. All righ ts reserved. This information is [...] might be different f rom the original. 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 MOTOR EXAM: Motor strength is improved [...] | | [place] | | | [place] | | | | | | Frame, [...] | | [place] | | | [place] | | | | | | Frame, [...] | [place] | | | [facility] | | [address] | | | - BLOOD BANK | [...] HOURS PRN, Itching, | | | Starting [facility] 09/08/17 at 1227, | | | Oral route is preferred., | | | Post-op/Phase II | | + +---+ | | | + +---+ | diphenhydrAMINE (BENADRYL) | | | injection 12.5 mg 12.5 mg, | | | Intravenous, EVERY 4 HOURS PRN, | | | Itching, Starting [facility] 09/08/17 at | | | 1227, Oral route is preferred., | | | Post-op/Phase II | | + +---+ | | | + +---+ | diphenhydrAMINE (BENADRYL) | | | tablet 25 mg 25 mg, Oral, EVERY | | | 4 HOURS PRN, Itching, Starting | | | [facility] 09/08/17 at 1227, Oral route | [...] 10:21 | | | | | on [place] 09/08/17 at 1245, | | AM PDT [...] | | | | First dose on [facility] 09/08/17 at | | AM PDT [...] 10:08 | | | Site | | [facility] 09/08/17 at 1008, Intra-op | | AM PDT | | | | + +-------+ +--------+---+ + +---+---+ | | | +---+---+ + +-------+ +--------+---+---+ | senna (SENOKOT) tablet 8.6 mg | Given | 09/10/20 | 8.6 mg | | | | 8.6 mg, Oral, 2 TIMES DAILY, | | 17 10:22 | | | | | First dose on [facility] 09/08/17 at | | AM PDT [...]
--- OUTSIDE RECORDS SUMMARY | ~2019-11-02 | XMS | Encounter Summary ---
Demographics + + + | Address | [address] | | | [place] [address] | + + + | Home Phone | | + + + | Preferred Language | Unknown | + + + | Marital Status | | + + + | Methodist Affiliation | 1028 | + + + [...] + | Pina Momin | ECON | [address] | | | | | [place] [address] | | + + + + + Care Team Providers + +------+ + | Care Manager Transplant Name | Role | Phone | + +------+ + | Jorge Diaz DO | PCP | | + +------+ + Encounter Details +--------+ + + + + | Date | Type | Department | Care Team | Description | +--------+ + + + + | 06/27/ | Hospital | [facility] | Ihsan Chavez, | Back pain, | | 2018 | Encounter | MED CTR XRAY [address] | DO [address] | unspecified back | | | | [place] | [address] [place], [place] | location, | | | | [place], [place] [address] | [address] | unspecified back | | | | [phone] | | pain laterality, | | | | | | unspecified | | | | | | chronicity | +--------+ + + + + Social [...] LUMBAR SPINE 2 OR | Routin | 06/27/2018 | Back pain, | Results for this | | 3 VW | e | 9:56 AM | unspecified back | procedure are in the | | | | PDT | location, | results section. | | | | | unspecified back | | | | | | pain laterality, | | | | | | unspecified | | | | | | chronicity | | + +--------+ + + + [...] Note | + + | Alex Andrade In - 06/27/2018 11:45 AM PDT CLINICAL [...] back pain laterality, unspecified | | chronicity | + + documented in this encounter"
--- OUTSIDE RECORDS SUMMARY | ~2019-11-02 | XMS | Encounter Summary ---
Demographics + + + | Address | [address] | | | [place] [address] | + + + | Home Phone | | + + + | Preferred Language | Unknown | + + + | Marital Status | | + + + | Episcopal Affiliation | 1028 | + + + | Race | Unknown | + + + | Ethnic Group | Unknown | + + + Author + + + | Author | [facility] | | | and [place] | + + + | Organization | [facility] | | | and [place] | + + + | Address | Unknown | + + + | Phone | Unavailable | + + + Support + + + + + | Name | Relationship | Address | Phone | + + + + + | Pina Momin | ECON | [address] | | | | | [place] [address] | | + + + + + Care Team Providers + +------+ + | Care Medical Delivery Driver Name | Role | Phone | + +------+ + | Jorge Diaz DO | PCP | | + +------+ + Encounter Details +--------+ + + + + | Date | Type | Department | Care Team | Description | +--------+ + + + + | 06/27/ | Hospital | [facility] | Ihsan Chavez, | Back pain, | | 2018 | Encounter | MED CTR XRAY [address] | DO [address] | unspecified back | | | | [place] | [address] [place], [place] | location, | | | | [place], [place] [address] | [address] | unspecified back | | | | [phone] | | pain laterality, | | | [...]
--- OUTSIDE RECORDS SUMMARY | ~2019-11-02 | XMS | Encounter Summary ---
Demographics + + + | Address | [address] | | | [place] [address] | + + + | Home Phone | | + + + | Preferred Language | Unknown | + + + | Marital Status | | + + + | Mandaeism Affiliation | 1028 | + + + | Race | Unknown | + + + | Ethnic Group | Unknown | + + + Author + + + | Author | [facility] | | | and [place] | + + + | Organization | [facility] | | | and [place] | + + + | Address | Unknown | + + + | Phone | Unavailable | + + + Support + + + + + | Name | Relationship | Address | Phone | + + + + + | Pina Momin | ECON | [address] | | | | | [place] [address] | | + + + + + Care Team Providers + +------+ + | Care Senior Windows Systems Engineer Name | Role | Phone | + +------+ + | Dave Franco MD | PCP | | + +------+ + Encounter Details +--------+ + + + + | Date | Type | Department | Care Team | Description | +--------+ + + + + | 09/06/ | Orders Only | [facility] | Ihsan Chavez, | Kyphoscoliosis | | 2017 | | NEUROSURGERY [address] | DO [address] | (Primary Dx); Status | | | | [address] | [address] [place], [place] | post lumbar spinal | | | | [place], [place] | [address] | fusion | | | | [address] | | | | | | [phone] | | | +--------+ + + + [...] XR Lumbar Spine 2 or 3 Vw (10/12/2017 9:30 AM PST) + + | Specimen | + + | | + + + + + | Narrative | Performed At | + + + | XR LUMBAR SPINE 2 OR 3 VW 10/12/2017 9:26 AM HISTORY: S/P Lumbar | [facility] | | fusion. COMPARISON: 09/08/2017 FINDINGS: Intact posterior | | | interbody fusion changes of L2-L3, without evidence of interval | | | complication. Mild spondylosis of the lower thoracic and remaining | | | lumbar spine. Multilevel mild facet spondylosis. Mild grade 1 | | | anterolisthesis of L4 over L5. Interval removal of the paraspinal | | | catheter. IMPRESSION - No evidence of interval complication. | | | Stable grade 1 anterolisthesis of L4 over L5. Dictated and Signed | | | by: Moshe Crane MD Electronically signed: 10/12/2017 9:45 AM | | | | | + + + + + | Procedure Note | + + | Raymond, Rad Results In - 10/12/2017 9:48 AM PST XR LUMBAR SPINE 2 OR 3 VW 10/12/2017 | | 9:26 AMHISTORY: S/P Lumbar fusion.COMPARISON: 09/08/2017FINDINGS:Intact posterior | | interbody fusion changes of L2-L3, without evidence of intervalcomplication. Mild | | spondylosis of the lower thoracic and remaining lumbar spine.Multilevel mild facet | | spondylosis. Mild grade 1 anterolisthesis of L4 over L5.Interval removal of the | | paraspinal catheter. IMPRESSION -No evidence of interval complication.Stable grade 1 | | anterolisthesis of L4 over L5.Dictated and Signed by: Moshe Crane MD Electronically | | signed: 10/12/2017 9:45 AM | |complication. Mild spondylosis of the lower thoracic and remaining lumbar spine. | |Multilevel mild facet spondylosis. Mild grade 1 anterolisthesis of L4 over L5. | |Interval removal of the paraspinal catheter. | | | |IMPRESSION - | |No evidence of interval complication. | | | |Stable grade 1 anterolisthesis of L4 over L5. | | | |Dictated and Signed by: Moshe Crane MD | | Electronically signed: 10/12/2017 9:45 AM | + + + +---------+ + + | Performing | Address | City/State/Zipcode | Phone Number | | Organization | | | | + +---------+ + + | [facility] | | | | + +---------+ + + documented in this encounter Visit Diagnoses + + | Diagnosis | + + | Kyphoscoliosis - Primary Scoliosis (and kyphoscoliosis), idiopathic | + + | Status post lumbar spinal fusion Arthrodesis status | + + documented in this encounter"
--- OUTSIDE RECORDS SUMMARY | ~2019-11-02 | XMS | Encounter Summary ---
Demographics + + + | Address | [address] | | | [place] [address] | + + + | Home Phone | | + + + | Preferred Language | Unknown | + + + | Marital Status | Single | + + + | Pentecostalism Affiliation | Unknown | + + + | Race | Unknown | + + + | Ethnic Group | Other Race | + + + Author + + + | Author | [facility] | + + + | Organization | [facility] | + + + | Address | Unknown | + + + | Phone | Unavailable | + + + Support + + +---------+ + | Name | Relationship | Address | Phone | + + +---------+ + | None None | ECON | Unknown | Unavailable | + + +---------+ + Care Team Providers + +------+ + | Care Precision Lens Technician Name | Role | Phone | + +------+ + PCP | Unavailable | + +------+ + Encounter Details +--------+ + + + + | Date | Type | Department | Care Team | Description | +--------+ + + + + | 01/03/ | Results | Registration 3181 | Other, Faculty | | | 2007 | Only | [address] | [phone] | | | | | Rd Mailcode: [id number] | | | | | | [place], [place] | | | | | | [address] | | | | | | [phone] | | | +--------+ + + + [...] | | Results for this | | [facility]) | e | | | procedure [...] | | | | | [place] [address] | | | | | | CLINICAL [...] TAMMIE | [address] | [place] [address] | | | DERMATOPATHOLOGY | Stanislaw Lino | | | + + + + + documented in this encounter Visit Diagnoses Not on filedocumented in this encounter"
--- OUTSIDE RECORDS SUMMARY | ~2019-11-02 | XMS | Encounter Summary ---
Demographics + + + | Address | [address] | | | [place] [address] | + + + | Home Phone | | + + + | Preferred Language | Unknown | + + + | Marital Status | | + + + | Yarsanism Affiliation | 1028 | + + + | Race | Unknown | + + + | Ethnic Group | Unknown | + + + Author + + + | Author | [facility] | | | and [place] | + + + | Organization | [facility] | | | and [place] | + + + | Address | Unknown | + + + | Phone | Unavailable | + + + Support + + + + + | Name | Relationship | Address | Phone | + + + + + | Pina Momin | ECON | [address] | | | | | [place] [address] | | + + + + + Care Team Providers + +------+ + | Care Material Control Associate Name | Role | Phone | + +------+ + | Dave Franco MD | PCP | | + +------+ + Encounter Details +--------+ + + + + | Date | Type | Department | Care Team | Description | +--------+ + + + + | 08/08/ | Hospital | [facility] | Ihsan Chavez, | Back pain, | | 2017 | Encounter | MED CTR XRAY [address] | DO [address] | unspecified back | | | | [place] | [address] [place], [place] | location, | | | | [place], [place] [address] | [address] | unspecified back | | | | [phone] | | pain laterality, | | | [...] + | XR LUMBAR SPINE 4 + | Routin | 08/08/2017 | Back pain, | Results for this | | VW | e | 3:05 PM | unspecified back | procedure are in the | | | | PDT | location, | results section. | | | | | unspecified back | | | | | | pain laterality, | | | | | | unspecified | | | | | | chronicity | | + +--------+ + + + documented in this encounter Results XR Lumbar Spine 4 [...]
--- OUTSIDE RECORDS SUMMARY | ~2019-11-02 | XMS | Encounter Summary ---
Demographics + + + | Address | [address] | | | [place] [address] | + + + | Home Phone | | + + + | Preferred Language | Unknown | + + + | Marital Status | | + + + | Mormon Affiliation | 1028 | + + + | Race | Unknown | + + + | Ethnic Group | Unknown | + + + Author + + + | Author | [facility] | | | and [place] | + + + | Organization | [facility] | | | and [place] | + + + | Address | Unknown | + + + | Phone | Unavailable | + + + Support + + + + + | Name | Relationship | Address | Phone | + + + + + | Pina Momin | ECON | [address] | | | | | [place] [address] | | + + + + + Care Team Providers + +------+ + | Care Food Porter Name | Role | Phone | + [...] | MED CTR EXTERNAL | MD [address] | | | | | IMAGING | [address] | | | | | [phone] | [place] [address] | | +--------+ + + + + [...] for comparison only - no result from [facility]. | [facility] | + + + + +---------+ + + | Performing | Address | City/State/Zipcode | Phone Number | | Organization | | | | + +---------+ + + | [facility] | | | | + +---------+ + + documented in this encounter Visit Diagnoses Not on filedocumented in this encounter"
--- OUTSIDE RECORDS SUMMARY | ~2019-11-02 | XMS | Encounter Summary ---
Demographics + + + | Address | [address] | | | [place] [address] | + + + | Home Phone | | + + + | Preferred Language | Unknown | + + + | Marital Status | | + + + | Rastafarian Affiliation | 1028 | + + + | Race | Unknown | + + + | Ethnic Group | Unknown | + + + Author + + + | Author | [facility] | | | and [place] | + + + | Organization | [facility] | | | and [place] | + + + | Address | Unknown | + + + | Phone | Unavailable | + + + Support + + + + + | Name | Relationship | Address | Phone | + + + + + | Pina Momin | ECON | [address] | | | | | [place] [address] | | + + + + + Care Team Providers + +------+ + | Care Engine Repairer Service Name | Role | Phone | + [...] [address] | [address] [place], [place] | post lumbar spinal | | | | [place], [place] | [address] | fusion | | | | [address] | | | | | | [phone] | | | +--------+ + + + [...]
--- OUTSIDE RECORDS SUMMARY | ~2019-11-02 | XMS | Encounter Summary ---
Demographics + + + | Address | [address] | | | [place] [address] | + + + | Home Phone | | + + + | Preferred Language | Unknown | + + + | Marital Status | | + + + | Religion Affiliation | 1028 | + + + | Race | Unknown | + + + | Ethnic Group | Unknown | + + + Author + + + | Author | [facility] | | | and [place] | + + + | Organization | [facility] | | | and [place] | + + + | Address | Unknown | + + + | Phone | Unavailable | + + + Support + + + + + | Name | Relationship | Address | Phone | + + + + + | Pina Momin | ECON | [address] | | | | | [place] [address] | | + + + + + Care Team Providers + +------+ + | Care Culinary Chef Name | Role | Phone | + [...] [place] | | | | | | [address] | | | | | | [phone] | | | +--------+ + + + [...]
--- OUTSIDE RECORDS SUMMARY | ~2019-11-02 | XMS | Encounter Summary ---
Demographics + + + | Address | [address] | | | [place] [address] | + + + | Home Phone | | + + + | Preferred Language | Unknown | + + + | Marital Status | | + + + | Jain Affiliation | 1028 | + + + | Race | Unknown | + + + | Ethnic Group | Unknown | + + + Author + + + | Author | [facility] | | | and [place] | + + + | Organization | [facility] | | | and [place] | + + + | Address | Unknown | + + + | Phone | Unavailable | + + + Support + + + + + | Name | Relationship | Address | Phone | + + + + + | Pina Momin | ECON | [address] | | | | | [place] [address] | | + + + + + Care Team Providers + +------+ + | Care Digital Strategist Name | Role | Phone | + +------+ + | Dave Franco MD | PCP | | + +------+ + Encounter Details +--------+ + + + + | Date | Type | Department | Care Team | Description | +--------+ + + + + | 08/22/ | Preadmit | [facility] | Ihsan Chavez, | Preoperative | | 2017 | Visit | MED CTR PREADMIT | DO [address] | clearance (Primary | | | | CLINIC [address] | [address] [place], [place] | Dx); Spinal stenosis | | | | [place], [place] | [address] | of lumbar region, | | | | [address] | | unspecified whether | | | [...] + | [address] | [address] | [place] | [phone] | | [facility] | | [address] | | | - LABORATORY | | [...] | [address] | [place] | [phone] | | [facility] | | [address] | | | - LABORATORY | | [...] | | | | JEANNIE LAUREN MD ([id number]) | | | | | | on [...]
--- OUTSIDE RECORDS SUMMARY | ~2019-11-02 | XMS | Encounter Summary ---
Demographics + + + | Address | [address] | | | [place] [address] | + + + | Home Phone | | + + + | Preferred Language | Unknown | + + + | Marital Status | | + + + | Yarsani Affiliation | 1028 | + + + | Race | Unknown | + + + | Ethnic Group | Unknown | + + + Author + + + | Author | [facility] | | | and [place] | + + + | Organization | [facility] | | | and [place] | + + + | Address | Unknown | + + + | Phone | Unavailable | + + + Support + + + + + | Name | Relationship | Address | Phone | + + + + + | Pina Momin | ECON | [address] | | | | | [place] [address] | | + + + + + Care Team Providers + +------+ + | Care Corrective And Manual Arts Therapist Name | Role | Phone | + [...] [address] | [address] [place], [place] | unspecified whether | | | | [place] | [address] | neurogenic | | | | [address] | | claudication present | | | | [phone] | | (Primary Dx); S/P | | [...]
--- OUTSIDE RECORDS SUMMARY | ~2019-11-02 | XMS | Encounter Summary ---
Demographics + + + | Address | [address] | | | [place] [address] | + + + | Home Phone | | + + + | Preferred Language | Unknown | + + + | Marital Status | | + + + | Sikhism Affiliation | 1028 | + + + | Race | Unknown | + + + | Ethnic Group | Unknown | + + + Author + + + | Author | [facility] | | | and [place] | + + + | Organization | [facility] | | | and [place] | + + + | Address | Unknown | + + + | Phone | Unavailable | + + + Support + + + + + | Name | Relationship | Address | Phone | + + + + + | Pina Momin | ECON | [address] | | | | | [place] [address] | | + + + + + Care Team Providers + +------+ + | Care Informal Waiter/Waitress Name | Role | Phone | + +------+ + | Dave Franco MD | PCP | | + +------+ + Encounter Details +--------+ + + + + | Date | Type | Department | Care Team | Description | +--------+ + + + + | 08/22/ | Orders Only | [facility] | Ihsan Chavez, | Kyphoscoliosis | | 2017 | | NEUR[address]UR[address]ERY [address] | DO [address] | (Primary Dx); | | | | [address] | [address] [place], [place] | Spondylolisthesis of | | | | [place], [place] | [address] | lumbar region; | | | | [address] | | Spinal stenosis, | | | | [phone] | | lumbar region, | | | | | | without neurogenic | | | | | | claudication; Lumbar | | | | | | radiculopathy; | | | | | | Acute back pain with | | | | | | sciatica, right; | | | | | | Weakness of lower | | | | | | extremity, | | | | | | unspecified | | | | | | laterality | +--------+ + + + + Social [...] (and kyphoscoliosis), idiopathic | + + | Spondylolisthesis of lumbar region Acquired spondylolisthesis | + + | Spinal stenosis, lumbar region, without neurogenic claudication | + + | Lumbar radiculopathy Thoracic or lumbosacral neuritis or radiculitis, unspecified | + + | Acute back pain with sciatica, right | + + | Weakness of lower extremity, unspecified laterality | + + documented in this encounter"
--- OUTSIDE RECORDS SUMMARY | ~2019-11-02 | XMS | Encounter Summary ---
Demographics + + + | Address | [address] | | | [place] [address] | + + + | Home Phone | | + + + | Preferred Language | Unknown | + + + | Marital Status | Single | + + + | Zoroastrian Affiliation | Unknown | + + + | Race | Unknown | + + + | Ethnic Group | Other Race | + + + Author + + + | Author | [facility] | + + + | Organization | [facility] | + + + | Address | Unknown | + + + | Phone | Unavailable | + + + Support + + +---------+ + | Name | Relationship | Address | Phone | + + +---------+ + | None None | ECON | Unknown | Unavailable | + + +---------+ + Care Team Providers + +------+ + | Care Machinist Apprentice Wood Name | Role | Phone | + +------+ + PCP | Unavailable | + +------+ + Encounter Details +--------+ + + + + | Date | Type | Department | Care Team | Description | +--------+ + + + + | 01/10/ | Ancillary | [facility] | | | | 2007 | Registratio | Practice [address] | | | | | n | [facility], | | | | | | [place] [address] | | | | | | [phone] | | | +--------+ + + + [...]
--- OUTSIDE RECORDS SUMMARY | ~2019-11-02 | XMS | Encounter Summary ---
Demographics + + + | Address | [address] | | | [place] [address] | + + + | Home Phone [...] + | Pina Momin | ECON | [address] | | | | | [place] [address] | | + + + + + Care Team Providers + +------+ + | Care Wire Machine Cutter Name | Role | Phone | + +------+ + | Dave Franco MD | PCP | | + +------+ + Encounter Details +--------+ + + + + | Date | Type | Department | Care Team | Description | +--------+ + + + + | 08/08/ | Hospital | [facility] | Ihsan Chavez, | Back pain, | | 2017 | Encounter | MED CTR XRAY [address] | DO [address] | unspecified back | | | | [place] | [address] [place], [place] | location, | | | | [place], [place] [address] | [address] | unspecified back | | | | [phone] | | pain laterality, | | | [...]
--- OUTSIDE RECORDS SUMMARY | ~2019-11-02 | XMS | Encounter Summary ---
Demographics + + + | Address | [address] | | | [place] [address] | + + + | Home Phone [...] + | Pina Momin | ECON | [address] | | | | | [place] [address] | | + + + + + Care Team Providers + +------+ + | Care Air Duct Mechanic Name | Role | Phone | + +------+ + | Dave Franco MD | PCP | | + +------+ + Reason for Visit + + + | Reason | Comments | + + + | Procedure | reminder | + + + Encounter Details +--------+ + + + + | Date | Type | Department | Care Team | Description | +--------+ + + + + | 09/06/ | Telephone | [facility] | Ihsan Chavez, | Procedure (reminder | | 2017 | | NEUROSUR[address]ERY [address] | DO [address] | ) | | | | [address] | [address] [place], [place] | | | | | [place], [place] | [address] | | | | | [address] | | | | | | [phone] | | | +--------+ + + + [...]
--- OUTSIDE RECORDS SUMMARY | ~2019-11-02 | XMS | Encounter Summary ---
Demographics + + + | Address | [address] | | | [place] [address] | + + + | Home Phone | | + + + | Preferred Language | Unknown | + + + | Marital Status | | + + + | Amish Affiliation | 1028 | + + + [...] + | Pina Momin | ECON | [address] | | | | | [place] [address] | | + + + + + Care Team Providers + +------+ + | Care Bulldozer/Loader/Compactor/Scraper Name | Role | Phone | + [...] [address] | [address] [place], [place] | | | | | [place] | [id number] | | | | | [address] | | | | | | [phone] | | | +--------+ + + + [...]
--- OUTSIDE RECORDS SUMMARY | ~2019-11-02 | XMS | Encounter Summary ---
Demographics + + + | Address | [address] | | | [place] [address] | + + + | Home Phone [...] + | Pina Momin | ECON | [address] | | | | | [place] [address] | | + + + + + Care Team Providers + +------+ + | Care Head Loft Worker Name | Role | Phone | + [...] [address] | [address] [place], [place] | | | | | [place], [place] | [address] | | | | | [address] | | | | | | [phone] | | | +--------+ + + + [...]
--- OUTSIDE RECORDS SUMMARY | ~2019-11-02 | XMS | Encounter Summary ---
Demographics + + + | Address | [address] | | | [place] [address] | + + + | Home Phone | | + + + | Preferred Language | Unknown | + + + | Marital Status | | + + + | Catholic Affiliation | 1028 | + + + | Race | Unknown | + + + | Ethnic Group | Unknown | + + + Author + + + | Author | [facility] | | | and [place] | + + + | Organization | [facility] | | | and [place] | + + + | Address | Unknown | + + + | Phone | Unavailable | + + + Support + + + + + | Name | Relationship | Address | Phone | + + + + + | Pina Momin | ECON | [address] | | | | | [place] [address] | | + + + + + Care Team Providers + +------+ + | Care Aviation Electrical Technician Name | Role | Phone | [...] | | | | | lumbar | [address] | | | | | | region, | Phone: | | | | | | unspecified | [phone] | | | | | | whether | Fax: | | | | | | neurogenic | [phone] | | | | | | claudication [...] | | | | | | | [place] | | | | | | | ARTHRODESIS | | | | | | | POSTERIOR/PO | | | | | | | STEROLATERAL | | | | | | | LUMBAR OR | | | | | | | LUMBAR SPINE | | | | | | | | | | | | | | FUSION,ANTER | | | | | | | APPRCH OR | | | | | | | [...] | | | | | | [place] | | | | | | | [...] + + | 09/08/ | Hospital | [facility] | Ihsan Chavez, | S/P lumbar fusion | | 2017 - | Encounter | MED CTR SURGICAL | DO [address] | (Primary Dx); Spinal | | | | [address] | [address] | stenosis of lumbar | | 09/10/ | | [place] [address] | [address] | region, unspecified | | 2017 | | [phone] | | whether neurogenic | | | [...] describes significant difficulty walking after round-up in [place]. The symptoms have been rapidly worsening. Herates [...] of admission the patient was admitted to [facility] and underwent a L2-L3 fusion. Patient was [...] by: Ihsan Chavez, 09/10/2017 7:52 [facility] documented in this en counter Discharge Instructions [...] seat, and a shower chair in your [facility]. Take your medication exactly as directed. Don [...] month post op appointment before your appointment. [phone] [employer]. [address] [place] [address], [place] [address]. All righ ts reserved. This information is [...] might be different f rom the original. [facility] NEUROSURGERY PROGRESS NOTE PATIENT NAME: Raciel [...] note might be different from the origin [facility] NEUROSURGERY PROGRESS NOTE PATIENT NAME: Raciel Momin [...] mL 30 mL Oral Daily PRN IVET oHrn losartan (COZAAR) tablet 100 mg 100 mg [...] has no apparent deficits with short or exterminator memory. MOTOR EXAM: Motor strength is improved [...] | | [place] | | | [place] | | | | | | Frame, [...] | | [place] | | | n [place] | | | | | | Frame, [...] St | [place] | | | [facility] | | [address] | | | - BLOOD BANK | [...] | | | | | | | [facility] 09/08/17 at 1600, For 2 | | [...] HOURS PRN, | | | Itching, Starting [facility] 09/08/17 at | | | 1227, Oral [...] 10:22 | | | | | on Asl[place] [...] | | | | | | | [facility] 09/08/17 at 1045, For 4 | | [...] | | | | First dose on [facility] 09/08/17 at | | AM PDT | [...]
--- OUTSIDE RECORDS SUMMARY | ~2019-11-02 | XMS | Encounter Summary ---
Demographics + + + | Address | [address] | | | [place] [address] | + + + | Home Phone | | + + + | Preferred Language | Unknown | + + + | Marital Status | | + + + | Restorationist Affiliation | 1028 | + + + [...] + | Pina Momin | ECON | [address] | | | | | [place] [address] | | + + + + + Care Team Providers + +------+ + | Care Professional Nurse Name | Role | Phone | + [...] [address] | [address] [place], [place] | location, | | | | [place] | [address] | unspecified back | | | | [address] | | pain laterality, | | | | [phone] | | unspecified | | | | [...] | | |Dictated and Signed by: Sonu Agiurre MD | | Electronically signed: 06/27/2018 11:42 [...]
--- OUTSIDE RECORDS SUMMARY | ~2019-11-02 | XMS | Encounter Summary ---
Demographics + + + | Address | [address] | | | [place] [address] | + + + | Home Phone | | + + + | Preferred Language | Unknown | + + + | Marital Status | | + + + | Taoism Affiliation | 1028 | + + + [...] + | Pina Momin | ECON | [address] | | | | | [place] [address] | | + + + + + Care Team Providers + +------+ + | Care Marine Cargo Inspector Name | Role | Phone | + +------+ + | Dave Franco MD | PCP | | + +------+ + Encounter Details +--------+ + + + + | Date | Type | Department | Care Team | Description | +--------+ + + + + | 10/12/ | Hospital | [facility] | Ihsan Chavez, | Status post lumbar | | 2017 | Encounter | MED CTR XRAY [address] | DO [address] | spinal fusion; | | | | [place] | [address] [place] | Kyphoscoliosis | | | | [place] [address] | [address] | | | | | [phone] | | | +--------+ + + + [...] LUMBAR SPINE 2 [place] | Routin | 10/12/2017 | Status post lumbar | Results for this | | 3 VW | e | 9:30 AM | spinal fusion | procedure are in the | | | | PST | Kyphoscoliosis | results section. | + +--------+ + [...] + | Diagnosis | + + | Status post lumbar spinal fusion Arthrodesis status | + + | Kyphoscoliosis Scoliosis (and kyphoscoliosis), idiopathic | + + documented in this encounter"
--- OUTSIDE RECORDS SUMMARY | ~2019-11-02 | XMS | Encounter Summary ---
Demographics + + + | Address | [address] | | | [place] [address] | + + + | Home Phone | | + + + | Preferred Language | Unknown | + + + | Marital Status | | + + + | Quaker Affiliation | 1028 | + + + | Race | Unknown | + + + | Ethnic Group | Unknown | + + + Author + + + | Author | [facility] | | | and [place] | + + + | Organization | [facility] | | | and [place] | + + + | Address | Unknown | + + + | Phone | Unavailable | + + + Support + + + + + | Name | Relationship | Address | Phone | + + + + + | Pina Momin | ECON | [address] | | | | | [place] [address] | | + + + + + Care Team Providers + +------+ + | Care Location Manager Name | Role | Phone | [...] + | 09/06/ | Telephone | [facility] | Ihsan Chavez, | Procedure (reminder | | 2017 | | NEUR[address]UR[address]ERY [address] | DO [address] | ) | | | | [address] | [address] [place], [place] | | | | | [place], [place] | [address] | | | | | [address] | | | | | | [phone] | | | +--------+ + + + [...]
--- OUTSIDE RECORDS SUMMARY | ~2019-11-02 | XMS | Encounter Summary ---
Demographics + + + | Address | [address] | | | [place] [address] | + + + | Home Phone | | + + + | Preferred Language | Unknown | + + + | Marital Status | | + + + | Latter-Day Affiliation | 1028 | + + + | Race | Unknown | + + + | Ethnic Group | Unknown | + + + Author + + + | Author | [facility] | | | and [place] | + + + | Organization | [facility] | | | and [place] | + + + | Address | Unknown | + + + | Phone | Unavailable | + + + Support + + + + + | Name | Relationship | Address | Phone | + + + + + | Pina Momin | ECON | [address] | | | | | [place] [address] | | + + + + + Care Team Providers + +------+ + | Care Plumbing Technician Name | Role | Phone | [...] [address] | [address] [place], [place] | location, | | | | [place] | [address] | unspecified back | | | | [address] | | pain laterality, | | | | [phone] | | unspecified | | | | [...]
--- OUTSIDE RECORDS SUMMARY | ~2019-11-02 | XMS | Clinical Summary ---
Demographics + + + | Address | [address] | | | [place] [address] | + + + | Home Phone | | + + + | Preferred Language | Unknown | + + + | Marital Status | Single | + + + | Orthodoxy Affiliation | Unknown | + + + [...] Team Providers + +------+ + | Care Toll Line Inspector Name | Role | Phone | + +------+ + PCP | Unavailable | + +------+ + Source Comments TAMMIE is fully live on both [facility] Ambulatory and [facility] InPatient.[facility] Allergies Not on File Medications Not [...] | MEDICA | xxxxxxxxxx | 03/14/20 | [phone] | [address] | Medica | | | RE A & | | 04-Pre | 1 | [phone] | [address] | | | B | | sent | | [place] | | | | | | | | [phone] | | + +--------+ +--------+ + +--------+ + +--------+ +--------+ + + | Guarantor Name | Accoun | Relation to | Date | Phone | Billing Address | | | t Type | Patient | of | | | | | | | | | | + +--------+ +--------+ + + | Raciel Momin | Person | Self | [birth year] | [address] | | | al/Fam | | 1940 | [phone] | [place] [address] | | | mariangel | | | 2 (Home) | | + +--------+ +--------+ + +"
--- OUTSIDE RECORDS SUMMARY | ~2019-11-02 | XMS | Encounter Summary ---
Demographics + + + | Address | [address] | | | [place] [address] | + + + | Home Phone | | + + + | Preferred Language | Unknown | + + + | Marital Status | | + + + | Gnosticism Affiliation | 1028 | + + + | Race | Unknown | + + + | Ethnic Group | Unknown | + + + Author + + + | Author | [facility] | | | and [place] | + + + | Organization | [facility] | | | and [place] | + + + | Address | Unknown | + + + | Phone | Unavailable | + + + Support + + + + + | Name | Relationship | Address | Phone | + + + + + | Pina Momin | ECON | [address] | | | | | [place] [address] | | + + + + + Care Team Providers + +------+ + | Care Logistics Project Manager Name | Role | Phone | + +------+ + | Dave Franco MD | PCP | | + +------+ + Encounter Details +--------+ + + + + | Date | Type | Department | Care Team | Description | +--------+ + + + + | 10/12/ | Hospital | [facility] | Ihsan Chavez, | Status post lumbar | | 2017 | Encounter | MED CTR XRAY [address] | DO [address] | spinal fusion; | | | | [place] | [address] [place] | Kyphoscoliosis | | | | [place] [id number] | [address] | | | | | [phone] | | | +--------+ + + + [...]
--- OUTSIDE RECORDS SUMMARY | ~2019-11-02 | XMS | Encounter Summary ---
Demographics + + + | Address | [address] | | | [place] [address] | + + + | Home Phone | | + + + | Preferred Language | Unknown | + + + | Marital Status | | + + + | Advent Affiliation | 1028 | + + + [...] + | Pina Momin | ECON | [address] | | | | | [place] [address] | | + + + + + Care Team Providers + +------+ + | Care Balance Weigher Name | Role | Phone | + [...] [address] | [address] [place], [place] | Spondylolisthesis of | | | | [place], [place] | [address] | lumbar region; | | | | [address] | | Spinal stenosis, | | | | [phone] | | lumbar region, | | | [...]
[~2019-11-02 15:41] MED LIST: ALEVE220 MG PO; ASPIRIN EC325 MG PO; BENICAR40 MG PO; DAILY VITAMIN1 EAC2 PO; FINASTERIDE5 MG PO; SIMVASTATIN5 MG PO; SLO-NIACIN500 MG PO; TERAZOSIN HCL5 MG PO; ZOLOFT100 MG PO
[2019-11-02] MEDS ORDERED: NORCO 5-325 TA1 EACH PO (17:24)
[2019-11-02] MEDS ORDERED: ROBAXIN-750750 MG PO (17:24)
== END 2019-11-02 17:45 | disposition home or self-care (01) ==
LOC: ED 15:41
DX: M54.16 Radiculopathy, lumbar region (principal); I10 Essential (primary) hypertension; F32.9 Major depressive disorder, single episode, unspecified; F41.9 Anxiety disorder, unspecified; Z88.8 Allergy status to other drugs, medicaments and biological substances; Z79.899 Other long term (current) drug therapy; Z79.82 Long term (current) use of aspirin
CPT/HCPCS: 99283

== ENCOUNTER 2020-05-29 07:10 | Day surgery (SDC) | payer MEDICARE, OTHER ==
[~2020-05-29] VITALS: Ht 172.7 cm; Wt 84.8 kg
[~2020-05-29 07:10] MED LIST changes: +NORCO 5-325 TA1 EACH PO; +ROBAXIN-750750 MG PO
[2020-05-29] MEDS ORDERED: TURMERIC 500 M1 EACH PO (07:39)
[2020-05-29] MEDS ORDERED: FLOMAX0.4 MG PO (07:39)
[2020-05-29] MEDS ORDERED: VITAMIN B122500 MCG PO (07:40)
--- NOTE | 2020-05-29 08:54 | NUR ---
05/29/20 0854 Paola Alonzo 0834 PATIENT ARRIVES TO PACU RESTING WITH EYES CLOSED. OPENS EYES WITH VERBAL STIMULI, THEN BACK TO SLEEP. RESP EVEN AND UNLABORED, NC AT 3 LITERS.
--- NOTE | 2020-05-29 11:48 | OR ---
[facility] [address], [place] [address] Signed DATE OF OPERATION: 05/29/2020 SURGEON: Roseline Oliveira MD PREOPERATIVE DIAGNOSIS: 1. Mother with colon cancer in her 70s. 2. Personal history of a serrated adenomatous rectal polyp with atypia at 15 cm in 2002, age 63. 3. History of multiple hyperplastic polyps in sigmoid colon, also diverticulosis. 4. Enlarged prostate gland. POSTOPERATIVE DIAGNOSES: 1. Moderate to severe sigmoid diverticulosis. 2. Enlarged indurated prostate gland. PROCEDURE: Colonoscopy without biopsy. ESTIMATED BLOOD LOSS: None. INDICATIONS: Raciel is an 80-year-old gentleman, who underwent a colonoscopy in [address] Bryant Newman in [place], [place]. He had a serrated adenomatous polyp with atypia removed at 15 cm at the top of the rectum. He has had several other colonoscopies over the years including 2006, 2009 and 2013. He is known to have diverticulosis along with several small hyperplastic polyps taken of the sigmoid colon and rectum. In addition, he has an enlarged and indurated prostate gland. He has actually had biopsies with Dr. Perry Wang. Apparently, they all came back fine. More recently, he has no lower GI complaints. He said he is returning now for followup colonoscopy. He reminded me that his mother of old age at age 93. In fact, they all look much younger than his stated age. 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 In the office, I gave him a pamphlet on colonoscopy. He is quite familiar with the procedure. He understands there is risk including, but not limited to gas bloating, crampy abdominal pain, bleeding, perforation requiring surgery, and missed diagnosis. He also understands the need for IV conscious sedation. He had expressed understanding and wished to proceed. DESCRIPTION OF PROCEDURE: Raciel was taken into our endoscopy suite and placed in the left lateral decubitus Electronically Signed By: ROSELINE OLIVEIRA MD 05/29/20 1148 PATIENT NAME: RACIEL ERNANDEZ OPERATIVE REPORT DATE OF : 38 REPORT #: [id number] PHYSICIAN: ROSELINE OLIVEIRA MD PCP: JORGE KEE DO REPORT IS CONFIDENTIAL AND NOT TO BE RELEASED WITHOUT AUTHORIZATION [facility] [address], [place] [address] Signed position. He was given 5 mg of Versed and 100 mcg of fentanyl. A digital rectal exam was performed and sure enough he has a moderately enlarged and indurated prostate gland. The left slightly more prominent than the right. The adult colonoscope was then introduced and advanced under direct visualization of camera. We examined there at 15 cm very carefully. No evidence of any recurrent polyp in that area. He needed extra sedation and some mild abdominal compression as we came through the sigmoid colon. He now has moderate to severe diverticulosis. It is quite angulated over a fair distance and it took some time to get through that area. After that, the colon opened up nicely and the scope traveled around into the cecum quite readily. His prep was quite excellent. We could easily see the appendiceal orifice and ileocecal valve. The scope was slowly withdrawn. We saw no polyps throughout the entire colon or rectum. Again, the sigmoid colon is moderately angulated. Once again, the area at 15 cm was unremarkable. The rectum was unremarkable. Upon retroflexion of scope, he has very minimal routine internal hemorrhoid tissue. After this, the gas was suctioned out and the colonoscope removed. Merrill tolerated the procedure quite well. RECOMMENDATIONS: Merrill is welcome to follow up in 5 years for repeat colonoscopy if he feels his health is holding up. Roseline Oliveira MD ALB/MODL /[id number] cc: MD Jorge Ramirez DO Aimee Rogers, MD Copies: ROSELINE OLIVEIRA MD, ARIAN DO Electronically Signed By: ROSELINE OLIVEIRA MD 05/29/20 1148 PATIENT NAME: RACIEL ERNANDEZ OPERATIVE REPORT DATE OF : 38 REPORT #: [id number] PHYSICIAN: ROSELINE OLIVEIRA MD PCP: JORGE KEE DO REPORT IS CONFIDENTIAL AND NOT TO BE RELEASED WITHOUT AUTHORIZATION [facility] [address] [place] [address] Signed PERRY WANG MD ~ Electronically Signed By: ROSELINE OLIVEIRA MD 05/29/20 1148 PATIENT NAME: RACIEL ERNANDEZ CRIS OPERATIVE REPORT DATE OF : 38 REPORT #: [id number] PHYSICIAN: ROSELINE OLIVEIRA MD PCP: JORGE KEE DO REPORT IS CONFIDENTIAL AND NOT TO BE RELEASED WITHOUT AUTHORIZATION
== END 2020-05-29 09:25 | disposition home or self-care (01) ==
LOC: OPS 07:10 → DS 07:10 → OPS 08:15
PROVIDERS: Colon & Rectal Surgery
PROC: 0DJD8ZZ Inspection of Lower Intestinal Tract, Via Natural or Artificial Opening Endoscopic (ICD-10-PCS; principal; 2020-05-29 08:15)
DX: Z12.11 Encounter for screening for malignant neoplasm of colon (principal); K64.8 Other hemorrhoids; K57.30 Diverticulosis of large intestine without perforation or abscess without bleeding; I10 Essential (primary) hypertension; K21.9 Gastro-esophageal reflux disease without esophagitis; E78.5 Hyperlipidemia, unspecified; Z80.0 Family history of malignant neoplasm of digestive organs; Z86.010 Personal history of colon polyps; Z79.899 Other long term (current) drug therapy
CPT/HCPCS: G0105; 99153; G0500; J0690; J2250; J3010; J7121

== ENCOUNTER 2021-07-08 07:05 | Day surgery (SDC) | payer MEDICARE, OTHER ==
[~2021-07-08] VITALS: Ht 172.7 cm; Wt 67.2 kg
[~2021-07-08 07:05] MED LIST changes: +BENICAR20 MG PO; +CBD; +FLOMAX0.4 MG PO; +MAXEPA500 MG PO; +MULTI VITAMIN1 EACH PO; +NASACORT10.8 ML; +NASOCORT; +TURMERIC 500 M1 EACH PO; +VISION VITAMIN1 EACH PO; +VITAMIN B122500 MCG PO; +VITAMIN D325 MCG
--- NOTE | 2021-07-08 09:53 | NUR ---
07/08/21 0953 Shruti Mcguire 3593-PATIENT ARRIVED TO PACU ON [address]L [address] EVEN ORAL AIRWAY IN PLACE. PATIENT NONAROUSABLE. SR. IVF INFUSING. INCISION SITE CDI.
--- NOTE | 2021-07-08 11:43 | NUR ---
PT RESTING IN BED WITH PERSONAL COAT LAID OVER CHEST WITH SPOUSE AT BEDSIDE. PT ACCEPTS WARM BLANKETS WHEN OFFERED. PT DENIES ANY PAIN OR NAUSEA. DC CRITERIA EXPLAINED TO PT AND PT STATES HE COULD VOID AT ANY TIME. SCD'S DISCONNECTED AND DWIGHT BOOGIE IN TO ROOM TO ASSIST PT TO BATHROOM.
--- NOTE | 2021-07-08 12:04 | NUR ---
STEADY ON FEET WITH ONE PERSON STAND BY ASSIST FOR AMBULATION TO BR. DENIES NAUSEA OR PAIN. VOIDS 300 ML CLEAR YELLOW URINE. REUTRNS TO ROOM AND REVIEWS DISCHARGE INSTRUCTIONS WITH AT BEDSIDE.
--- NOTE | 2021-07-09 07:20 | OR ---
[facility] [place] [facility] [address] [place], [place] [address] Signed DATE OF OPERATION: 07/08/2021 SURGEON: Roseline Alan MD PREOPERATIVE DIAGNOSIS: Superior sternal subcutaneous mass (6 cm). POSTOPERATIVE DIAGNOSIS: Superior sternal subcutaneous mass (6 cm). PROCEDURE: Excision of superior sternal subcutaneous mass. ESTIMATED BLOOD LOSS: None. INDICATIONS: Raciel is an 81-year-old gentleman I have known for many years. He came to the office as a self referral. He has a subcutaneous mass over the proximal sternum slightly off to the left side. He said he has been there about seven years. It continues to increase in size. It is up to 6 cm in diameter. He said it has become painful. Even while sleeping, he bumps his chin on that subcutaneous mass. He said it awakens him at night. He said it has become difficult to wear his seatbelt while driving. He wanted to come and have me look at to excise it. To his knowledge, it was never infected or drained. In the office, I explained to him the nature of the incision required to remove that lesion. He understands this is slightly too large to do in the office. He was in agreement with that. He understands there is risk to the surgery including, but not limited to bleeding, infection, scarring, change in contour of the skin as well as recurrent masses in the same or other locations. He also understands expected intraop and postop course. He had expressed understanding and wished to proceed. DESCRIPTION OF PROCEDURE: I met with Raciel and his in our preop area. We all agreed on the subcutaneous mass and we marked that appropriately. After this, he was taken in the operating room and placed in the supine position under general endotracheal tube anesthesia. He was given preoperative antibiotics along with subcutaneous heparin. SCDs were utilized. He was then prepped and draped in the usual sterile fashion. We used an oblique incision that followed the clavicle. We went down around the lesion with the help of the cautery. We had a very carefully off the medial branch of the sternocleidomastoid muscle as well as the sternum. 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 We then injected local Electronically Signed By: ROSELINE ALAN MD 07/09/21 0720 PATIENT NAME: RACIEL ERNANDEZ OPERATIVE REPORT DATE OF : 38 REPORT #: [id number] PHYSICIAN: ROSELINE ALAN MD PCP: GOLDIE KEE DO REPORT IS CONFIDENTIAL AND NOT TO BE RELEASED WITHOUT AUTHORIZATION [facility] [address] [place], [place] [address] Signed anesthetic into his operative wound. The wound was irrigated and suctioned out until clear. The dermis was reapproximated with interrupted 3-0 subcuticular Monocryl sutures. Skin edges were reapproximated with running 5-0 fast absorbing plain gut suture. Dry gauze and tape were then applied. Raciel was then awakened from his anesthesia, extubated in the OR and taken to the recovery room in stable condition. Roseline Alan MD ALB/MODL /[id number] cc: DO Roseline Nguyen MD Copies: GOLDIE KEE ANDREW L MD ~ Electronically Signed By: ROSELINE ALAN MD 07/09/21 0720 PATIENT NAME: RACIEL ERNANDEZ OPERATIVE REPORT DATE OF : 38 REPORT #: [id number] PHYSICIAN: ROSELINE ALAN MD PCP: GOLDIE KEE DO REPORT IS CONFIDENTIAL AND NOT TO BE RELEASED WITHOUT AUTHORIZATION
--- NOTE | 2021-07-10 11:53 | PATH ---
[facility] [address] [place], [place] [address] Signed SPECIMEN(S): A SUBCUTANEOUS STERNAL MASS SPECIMEN SOURCE: A. SUBCUTANEOUS STERNAL MASS CLINICAL HISTORY: Subcutaneous sternal mass. FINAL PATHOLOGIC DIAGNOSIS: Soft tissue, subcutaneous sternal mass, excision: - Lipoma. NAL:cml:C2NR MICROSCOPIC EXAMINATION: Histologic sections of all submitted blocks are examined by light microscopy. These findings, together with the gross examination, support the pathologic diagnosis. GROSS DESCRIPTION: The specimen, labeled "DC," and designated on the requisition "subcutaneous sternal mass," is received in formalin and consists of circumscribed fatty tissue nodule measuring 6.6 x 5.3 x 2.0 cm. Cut surface is homogenous and teleservices representative sections are submitted in cassette A1. AT (under the direct supervision of a pathologist) The Gross Description was prepared using a voice recognition system. The report was reviewed for accuracy; however, sound-alike word errors, addition and/or deletions may occur. If there is any question about this report, please contact Client Services. PERFORMING LABORATORY: The technical component was performed by [facility], [address] [place] [address] (Optoelectronics Engineer: Mariella Olea MD; CLIA# [id number]). [facility] [address] [address] (CLIA# [id number]). Diagnostician: Adalgisa Myers MD Pathologist Electronically Signed 07/10/2021 PATIENT NAME: ROSINA ERNANDEZ PATHOLOGY DATE OF : 39 REPORT #: [id number] PHYSICIAN: [facility] PCP: GOLDIE KEE DO REPORT IS CONFIDENTIAL AND NOT TO BE RELEASED WITHOUT AUTHORIZATION [address] [address] Signed Copies: ~ PATIENT NAME: ROSINA ERNANDEZ PATHOLOGY DATE OF : 39 REPORT #: [id number] PHYSICIAN: [facility] PCP: GOLDIE KEE DO REPORT IS CONFIDENTIAL AND NOT TO BE RELEASED WITHOUT AUTHORIZATION
== END 2021-07-08 11:55 | disposition home or self-care (01) ==
LOC: DS 07:05
PROVIDERS: ATTEND Colon & Rectal Surgery
PROC: 0JB60ZZ Excision of Chest Subcutaneous Tissue and Fascia, Open Approach (ICD-10-PCS; principal; 2021-07-08 08:15)
DX: D17.1 Benign lipomatous neoplasm of skin and subcutaneous tissue of trunk (principal); I10 Essential (primary) hypertension; K21.9 Gastro-esophageal reflux disease without esophagitis; E78.5 Hyperlipidemia, unspecified; M51.16 Intervertebral disc disorders with radiculopathy, lumbar region; N40.0 Benign prostatic hyperplasia without lower urinary tract symptoms; Z96.643 Presence of artificial hip joint, bilateral; Z88.8 Allergy status to other drugs, medicaments and biological substances; Z85.828 Personal history of other malignant neoplasm of skin
CPT/HCPCS: 00400; 88304; J0330; J0690; J1644; J2001; J2250; J2704; J7121

== ENCOUNTER 2025-06-30 16:25 | Emergency (ER) | payer MEDICARE, OTHER ==
[~2025-06-30] VITALS: Ht 172.7 cm; Wt 79.8 kg
--- OUTSIDE RECORDS SUMMARY | 2025-06-30 16:28 | XMS ---
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 Shauna has no Care Guidelines for this patient. [facility] ([facility] MO[facility] NOTE: Visits indicate total known visits. ED/[facility] VISIT TRACKING (12 MO.) 06/30/2025 16:25 [facility] [place] TYPE: Emergency COMPLAINT: - WEAKNESS 06/26/2025 16:[address] [facility] [place] TYPE: Emergency COMPLAINT: - SOB, DIZZY DIAGNOSES: - Allergy status to other drugs, medicaments and biological substances - Essential (primary) hypertension - Hydrocele, unspecified - Other [facility] ([facility] drug therapy - Other malaise - Other specified abnormal findings of blood chemistry INPATIENT VISIT TRACKING (12 MO.) No inpatient visits to display in this time frame [email or web address]
[2025-06-30] MEDS ORDERED: SODIUM CHLORIDE 0.9% 1,000 ML IV ONE (16:45)
[2025-06-30] MEDS ORDERED: ACETAMINOPHEN 500 MG TAB PO ONE (16:45)
[2025-06-30 16:49] LABS: BASOPHILS 0.1 % (0.2-1.2); EOSINOPHILS 0.2 % (0.8-7.0); LYMPHOCYTES 1.7 % (21.8-53.1); MCH 30.9 PG (25.7-32.2); MCHC 34.7 g/dL (32.3-36.5); MCV 89.0 fL (79.0-92.2); MONOCYTES 5.3 % (5.3-12.2); NEUTROPHILS 91.5 % (34.0-67.9); RBC 3.63 M/uL (4.63-6.08)
[2025-06-30 17:08] LABS: ALT (SGPT) 119.0 U/L (14-59); AST (SGOT) 96.0 U/L (15-37); GLOMERULAR FILTRATION RATE,EST 50.0 mL/min (>60); PROTEIN, TOTAL 6.0 g/dL (6.4-8.2); UREA NITROGEN 26.0 mg/dL (7-18)
[2025-06-30 17:11] LABS: LACTIC ACID, BLOOD 2.1 mmol/L (0.4-2.0)
[2025-06-30] MEDS ORDERED: LATANOPROST2.5 ML OU (17:22)
[2025-06-30] MEDS ORDERED: VENLAFAXINE HCL75 MG PO (17:22)
[2025-06-30] MEDS ORDERED: TAMSULOSIN HCL0.4 MG PO (17:22)
[2025-06-30] MEDS ORDERED: OLMESARTAN MEDO40 MG PO (17:23)
[2025-06-30 17:37] LABS: INFLUENZA B NAA NEGATIVE (NEGATIVE); RESPIRATORY SYNCYTIAL VIR NAA NEGATIVE (NEGATIVE)
[2025-06-30] MEDS ORDERED: LACTATED RINGER'S 1,000 ML IV ONE (20:30)
[2025-06-30] MEDS ORDERED: LIDOCAINE 2% VISCOUS 6 ML SYR TOP ONE (22:00)
[2025-06-30 22:16] LABS: BLOOD/HGB, URINE NEGATIVE (Negative); KETONE, URINE TRACE (Negative); LEUK ESTERASE, URINE NEGATIVE (negative); NITRITE, URINE NEGATIVE (negative)
[2025-06-30 22:29] LABS: BACTERIA, URINE RARE /hpf (negative); CASTS, URINE HYALINE 1+ \\lpf; CRYSTALS, URINE NONE SEEN (0-1+); EPITHELIAL CELLS, URINE SQUAMOUS 1+ /lpf (0-1+)
[2025-06-30 22:30] LABS: REFLEX CULTURE, URINE No (No)
[2025-06-30 22:48] LABS: INR 1.13 (0.80-1.30); PROTIME 14.1 Sec (11.2-14.2)
[2025-07-01 00:03] LABS: GLOMERULAR FILTRATION RATE,EST 43.0 mL/min (>60); UREA NITROGEN 27.0 mg/dL (7-18)
[2025-07-01] MEDS ORDERED: SODIUM CHLORIDE 0.9% 1,000 ML IV PRN (00:30)
[2025-07-01] MEDS ORDERED: SODIUM CHLORIDE 0.9% 1,000 ML IV SCH (00:30)
[2025-07-01] MEDS ORDERED: LACTATED RINGER'S 1,000 ML IV ONE (01:45)
[2025-07-01 03:20] VITALS: BP 135/70
== END 2025-07-01 03:20 | disposition short-term general hospital (02) ==
LOC: ED 16:25
PROVIDERS: Emergency Medicine; Internal Medicine
DX: K75.0 Abscess of liver (principal); E87.1 Hypo-osmolality and hyponatremia; I10 Essential (primary) hypertension; R06.02 Shortness of breath; Z88.8 Allergy status to other drugs, medicaments and biological substances; Z79.899 Other long term (current) drug therapy
CPT/HCPCS: 36415; 51702; 51798; 71045; 74177; 76705; 80048; 80053; 81001; 83605; 84484; 85025; 85610; 87040; 87077; 87502; 96365; 99285-25; A4311; A9270; J0696; J7030; J7121; Q9967; U0002

== ENCOUNTER 2025-08-24 14:44 | Emergency (ER) | payer MEDICARE, OTHER ==
[~2025-08-24] VITALS: Ht 172.7 cm; Wt 77.5 kg
--- OUTSIDE RECORDS SUMMARY | ~2025-08-24 | XMS | Continuity of Care Document ---
Demographics + + + | Address | [address] | | | [place] [address] | + + + | Preferred Language | Unknown | + + + | Marital Status | | + + + | Confucianism Affiliation | Unknown | + + + | Race | White | + + + | Ethnic Group | Not or | + + + Author + + + | Author | [facility] | + + + | Organization | [facility] | + + + | Address | [address] | | | [place] [address] | + + + | Phone | | + + + Care Team Providers + + + + | Care Retail Helper Name | Role | Phone | [...] severity) | | 00:00 | | [facility] | | | | | | Hospital [...] (no date) | No vaccine administered | [facility] | | | | [facility] | + + + + Medications + + + + | date | description | facility | + + + + | (no date) | Turmeric extract 500 MG [facility] | | | Oral Capsule | [facility] | + + + + | (no date) | vitamin B12 2.5 MG Oral | [facility] | | | Tablet | [facility] | + + + + | (no date) | triamcinolone acetonide | [facility] | | | 0.055 MG/ACTUAT Metered | [facility] | | | Dose Nasal S | | + + + + | (no date) | aspirin 325 MG Delayed | [facility] | | | Release Oral Tablet | [facility] | + + + + | (no date) | cholecalciferol 0.025 MG | [facility] | | | Oral Tablet | [facility] | + + + + | (no date) | sertraline 100 MG Oral | [facility] | | | Tablet [Zoloft] | [facility] | + + + + | (no date) | niacin 500 MG Extended | [facility] | | | Release Oral Tablet | [facility] | | | [Slo-Niacin] | | + + + + | (no date) | finasteride 5 MG Oral | [facility] | | | Tablet | [facility] | + + + + | (no date) | simvastatin 5 MG Oral | [facility] | | | Tablet | [facility] | + + + + | (no date) | terazosin 5 MG Oral | [facility] | | | Capsule | [facility] | + + + + | (no date) | venlafaxine 75 MG Oral | [facility] | | | Tablet | [facility] | + + + + | (no date) | latanoprost 0.05 MG/ML | [facility] | | | Ophthalmic Solution | [facility] | + + + + | (no date) | olmesartan medoxomil 40 MG | [facility] | | | Oral Tablet | [facility] | + + + + | (no date) | olmesartan medoxomil 20 MG | [facility] | | | Oral Tablet [Benicar] | [facility] | + + + + | (no date) | olmesartan medoxomil 40 MG | [facility] | | | Oral Tablet [Benicar] | [facility] | + + + + | (no date) | naproxen sodium 220 MG | [facility] | | | Oral Tablet [Aleve] | [facility] | + + + + | (no date) | tamsulosin hydrochloride | [facility] | | | 0.4 MG Oral Capsule | [facility] | + + + + | (no date) | tamsulosin hydrochloride | [facility] | | | 0.4 MG Oral Capsule | [facility] | | | [Flomax] | | + + + + Problems + + + + | date | description | facility | + + + + | 2025-06-26 00:00 | Elevated troponin | [facility] | | | | [facility] | + + + + | 2025-06-26 00:00 | Hydrocele in adult | [facility] | | | | [facility] | + + + + | 2025-06-26 00:00 | Malaise | [facility] | | | | [facility] | + + + + | 2025-06-30 00:00 | Weakness | [facility] | | | | [facility] | + + + + Procedures No information. Results/Labs +--------+--------+ +---------+--------+---------+ | test | date | facility | value | unit | notes | +--------+--------+ +---------+--------+---------+ + + | Result panel 1 | + + + + + +--------+ [...] 2 | + + + + + +------+ [...] 3 | + + + + + +---------+ [...] 4 | + + + + + +-------+ [...] 5 | + + + + + +-------+ [...] 6 | + + + + + +------+ [...] 7 | + + + + + +------+ [...] 10 | + + + + + +-------+ [...] 12 | + + + + + +-------+ [...] 14 | + + + + + +--------+ [...] 15 | + + + + + +-------+ [...] 16 | + + + + + +------+ [...] 17 | + + + + + +------+ [...] 18 | + + + + + +-------+ [...] 19 | + + + + + +-------+ [...] 20 | + + + + + +---------+ [...] 21 | + + + + + +--------+ [...] 22 | + + + + + +--------+ [...] 23 | + + + + + +--------+ [...] 24 | + + + + + +--------+ [...] 25 | + + + + + +--------+ [...] 28 | + + + + + +--------+ [...] 30 | + + + + + +--------+ [...] 32 | + + + + + +-------+ [...] 33 | + + + + + +--------+ + + | Prothrombin | 2025-06-26 | | 14.3 | (missing) | (missing) | | time (PT) | 17:25 | [facility] | | | | | in platelet | | - | | | | | poor plasma | | [facility] | | | | | by | | Hospital | | | | | coagulation | | | | | | | assay | | | | | | + + + +--------+ + + + + | Result panel 34 | + + + + + +--------+ + + | INR in | 2025-06-26 | | 1.19 | (missing) | (missing) | | Platelet | 17:25 | [facility] | | | | | poor plasma | | - | | | | | by | | [facility] | | | | | Coagulation | | Hospital | | | | | assay | | | | | | + + + +--------+ + + + + | Result panel 35 | + + + + + +-------+ [...] 36 | + + + + + +------+ [...] | [facility] | | | | | 2019 novel | [facility] | | [...] 62 | + + + + + +---------+ [...] 68 | + + + + + +--------+ [...] 69 | + + + + + +-------+ [...] 70 | + + + + + +--------+ [...] 74 | + + + + + +-------+ [...] 76 | + + + + + +--------+ [...] 79 | + + + + + +-------+ [...] 80 | + + + + + +--------+ [...] 81 | + + + + + +-------+ [...] 82 | + + + + + +------+ [...] 84 | + + + + + +-------+ [...] 85 | + + + + + +--------+ [...] 108 | + + + + + +--------+ [...] 109 | + + + + + +-------+ [...] 111 | + + + + + +--------+ [...] 112 | + + + + + +------+ [...] 113 | + + + + + +---------+ [...] 114 | + + + + + +-------+ [...] 115 | + + + + + +-------+ [...] 116 | + + + + + +------+ [...] 117 | + + + + + +------+ [...] | | | | | | | (gil/abraham | | | | | | | e) | | | | | | + + + +------+ + + Social History + + + + | date | description | facility | + + + + | (no date) | Never smoker | [facility] | | | | [facility] | + + + + Vital Signs No information."
[~2025-08-24 14:44] MED LIST changes: +LATANOPROST2.5 ML OU; +OLMESARTAN MEDO40 MG PO; +TAMSULOSIN HCL0.4 MG PO; +VENLAFAXINE HCL75 MG PO
[2025-08-24 16:07] LABS: BASOPHILS 0.5 % (0.2-1.2); EOSINOPHILS 1.4 % (0.8-7.0); LYMPHOCYTES 9.7 % (21.8-53.1); MCH 31.3 PG (25.7-32.2); MCHC 34.6 g/dL (32.3-36.5); MCV 90.3 fL (79.0-92.2); MONOCYTES 20.4 % (5.3-12.2); NEUTROPHILS 67.2 % (34.0-67.9); RBC 3.93 M/uL (4.63-6.08)
[2025-08-24] MEDS ORDERED: ONDANSETRON ODT8 MG PO (16:11)
[2025-08-24] MEDS ORDERED: VANCOCIN HCL125 MG PO (16:11)
[2025-08-24] MEDS ORDERED: VANCOMYCIN HCL 125 MG CAP PO ONE (16:15)
[2025-08-24] MEDS ORDERED: SODIUM CHLORIDE 0.9% 1,000 ML IV ONE (16:15)
[2025-08-24 16:17] LABS: ALT (SGPT) 20.0 U/L (14-59); AST (SGOT) 16.0 U/L (15-37); GLOMERULAR FILTRATION RATE,EST 43.0 mL/min (>60); PROTEIN, TOTAL 6.0 g/dL (6.4-8.2); UREA NITROGEN 27.0 mg/dL (7-18)
[2025-08-24] MEDS ORDERED: POTASSIUM CHLORIDE 10 MEQ/100 ML BAG IV SCH (17:45)
[2025-08-24] MEDS ORDERED: POTASSIUM CHLORIDE 10 MEQ/100 ML BAG IV ONE (17:45)
[2025-08-24] MEDS ORDERED: POTASSIUM CHLORIDE 10 MEQ TABCR PO ONE ×2 (17:45→18:45)
[2025-08-24] MEDS ORDERED: POTASSIUM CHLO10 MEQ PO (18:44)
[2025-08-24 18:55] VITALS: BP 136/64
== END 2025-08-24 18:52 | disposition home or self-care (01) ==
LOC: ED 14:44
PROVIDERS: Emergency Medicine
DX: A04.72 Enterocolitis due to Clostridium difficile, not specified as recurrent (principal); E87.6 Hypokalemia; I10 Essential (primary) hypertension; Z88.8 Allergy status to other drugs, medicaments and biological substances; Z79.899 Other long term (current) drug therapy
CPT/HCPCS: 36415; 80053; 83735; 85025; 96361; 96365; 96375; 99284-25; A9270; J2405; J3480; J7030

== ENCOUNTER 2025-09-10 13:35 | Inpatient (IN) | payer MEDICARE, OTHER ==
[~2025-09-10] VITALS: Ht 172.7 cm; Wt 77.6 kg
--- OUTSIDE RECORDS SUMMARY | ~2025-09-10 | XMS | Continuity of Care Document ---
Demographics + + + | Address | [address] | | | [place] [address] | + + + | Preferred Language | Unknown | + + + | Marital Status | | + + + | Anabaptist Affiliation | Unknown | + + + | Race | White | + + + | Ethnic Group | Not or | + + + Author + + + | Author | [facility] | + + + | Organization | [facility] | + + + | Address | [address] | | | [place] [address] | + + + | Phone | | + + + Care Team Providers + + + + | Care Bag Bleacher Name | Role | Phone | + + + + Unavailable | Unavailable | + + + + Unavailable | Unavailable | + + + + Allergies and Intolerances + + + + + + | date | description | facility | reaction | severity | + + + + + + | 2025-06-30 | Lisinopril | [facility] - | (no reaction) | Mild | | 00:00 | | [facility] | | | + + + + + + | 2025-06-30 | Atorvastatin | [facility] - | (no reaction) | Moderate | | 00:00 | | [facility] | | | + + + + + + | 2025-06-30 | Nortriptyline | [facility] - | (no reaction) | (no severity) | | 00:00 | | [facility] | | | + + + + + + | 2025-06-30 | Lisinopril | [facility] - | (no reaction) | Mild | | 00:00 | | [facility] | | | + + + + + + | 2025-06-26 | lisinopril | [facility] - | (no reaction) | (no severity) | | 00:00 | | [facility] | | | + + + + + + | 2025-06-30 | lisinopril | [facility] - | (no reaction) | (no severity) | | 00:00 | | [facility] | | | + + + + + + | 2025-06-30 | Desipramine | [facility] - | (no reaction) | Severe | | 00:00 | | [facility] | | | + + + + + + | 2025-06-26 | desipramine | [facility] - | (no reaction) | (no severity) | | 00:00 | | [facility] | | | + + + + + + | 2025-06-30 | desipramine | [facility] - | (no reaction) | (no severity) | | 00:00 | | [facility] | | | + + + + + + | 2025-06-30 | Desipramine | [facility] - | (no reaction) | Severe | | 00:00 | | [facility] | | | + + + + + + | 2025-06-30 | Simvastatin | [facility] - | (no reaction) | (no severity) | | 00:00 | | [facility] | | | + + + + + + | 2025-06-26 | simvastatin | [facility] - | (no reaction) | (no severity) | | 00:00 | | [facility] | | | + + + + + + | 2025-06-30 | simvastatin | [facility] - | (no reaction) | (no severity) | | 00:00 | | [facility] | | | + + + + + + | 2025-06-30 | Simvastatin | [facility] - | (no reaction) | (no severity) | | 00:00 | | [facility] | | | + + + + + + | 2025-06-30 | Nortriptyline | [facility] - | (no reaction) | (no severity) | | 00:00 | | [facility] | | | + + + + + + | 2025-06-26 | nortriptyline | [facility] - | (no reaction) | (no severity) | | 00:00 | | [facility] | | | + + + + + + | 2025-06-30 | nortriptyline | [facility] - | (no reaction) | (no severity) | | 00:00 | | [facility] | | | + + + + + + | 2025-06-30 | Atorvastatin | [facility] - | (no reaction) | Moderate | | 00:00 | | [facility] | | | + + + + + + | 2025-06-26 | atorvastatin | [facility] - | (no reaction) | (no severity) | | 00:00 | | [facility] | | | + + + + + + | 2025-06-30 | atorvastatin | [facility] - | (no reaction) | (no severity) | | 00:00 | | [facility] | | | + + + + + + | 2025-06-30 | Atorvastatin | [facility] - | (no reaction) | Moderate | | 00:00 | | [facility] | | | + + + + + + | 2025-06-30 | Simvastatin | [facility] - | (no reaction) | (no severity) | | 00:00 | | [facility] | | | + + + + + + | 2025-06-30 | Nortriptyline | [facility] - | (no reaction) | (no severity) | | 00:00 | | [facility] | | | + + + + + + | 2025-06-30 | Lisinopril | [facility] - | (no reaction) | Mild | | 00:00 | | [facility] | | | + + + + + + | 2025-06-30 | Desipramine | [facility] - | (no reaction) | Severe | | 00:00 | | [facility] | | | + + + + + + Encounters No information. Functional Status No information. Immunizations + + + + | date | description | facility | + + + + | (no date) | No vaccine administered | [facility] | | | | [facility] | + + + + Medications + + + + | date | description | facility | + + + + | (no date) | Turmeric extract 500 MG | [facility] | | | Oral Capsule | [facility] | + + + + | (no date) | Turmeric/Turmeric Root | [facility] | | | Extract | [facility] | + + + + | (no date) | CYANOCOBALAMIN (VITAMIN | [facility] | | | B-12) | [facility] | + + + + | (no date) | vitamin B12 2.5 MG Oral | [facility] | | | Tablet | [facility] | + + + + | (no date) | triamcinolone acetonide | [facility] | | | 0.055 MG/ACTUAT Metered | [facility] | | | Dose Nasal S | | + + + + | (no date) | ASPIRIN | [facility] | | | | [facility] | + + + + | (no date) | aspirin 325 MG Delayed | [facility] | | | Release Oral Tablet | [facility] | + + + + | (no date) | Cholecalciferol (Vitamin | [facility] | | | D3) | [facility] | + + + + | (no date) | cholecalciferol 0.025 MG | [facility] | | | Oral Tablet | [facility] | + + + + | 2025-08-24 00:00 | VANCOMYCIN HCL | [facility] | | | | [facility] | + + + + | 2025-08-24 00:00 | vancomycin 125 MG Oral | [facility] | | | Capsule [Vancocin] | [facility] | + + + + | (no date) | sertraline 100 MG Oral | [facility] | | | Tablet [Zoloft] | [facility] | + + + + | (no date) | NIACIN | [facility] | | | [facility] | + + + + | (no date) | niacin 500 MG Extended | [facility] | | | Release Oral Tablet | [facility] | | | [Slo-Niacin] | | + + + + | (no date) | FINASTERIDE | [facility] | | | | [facility] | + + + + | (no date) | finasteride 5 MG Oral | [facility] | | | Tablet | [facility] | + + + + | 2025-08-24 00:00 | ONDANSETRON | [facility] | | | | [facility] | + + + + | 2025-08-24 00:00 | ondansetron 8 MG | [facility] | | | Disintegrating Oral Tablet | [facility] | + + + + | 2025-08-24 00:00 | POTASSIUM CHLORIDE | [facility] | | | | [facility] | + + + + | 2025-08-24 00:00 | potassium chloride 10 MEQ | [facility] | | | Extended Release Oral | [facility] | | | Capsule | | + + + + | (no date) | SIMVASTATIN | [facility] | | | | [facility] | + + + + | (no date) | simvastatin 5 MG Oral | [facility] | | | Tablet | [facility] | + + + + | (no date) | TERAZOSIN HCL | [facility] | | | [facility] | + + + + | (no date) | terazosin 5 MG Oral | [facility] | | | Capsule | [facility] | + + + + | (no date) | VENLAFAXINE HCL | [facility] | | | | [facility] | + + + + | (no date) | venlafaxine 75 MG Oral | [facility] | | | Tablet | [facility] | + + + + | (no date) | LATANOPROST | [facility] | [facility] | + + + + | (no date) | latanoprost 0.05 MG/ML | [facility] | | | Ophthalmic Solution | [facility] | + + + + | (no date) | Olmesartan Medoxomil | [facility] | | [facility] | + + + + | (no date) | olmesartan medoxomil 40 MG | [facility] | | | Oral Tablet | [facility] | + + + + | (no date) | olmesartan medoxomil 20 MG | [facility] | | | Oral Tablet [Benicar] | [facility] | + + + + | (no ) | OLMESARTAN MEDOXOMIL | [facility] | | | | [facility] | + + + + | (no ) | olmesartan medoxomil 40 MG | [facility] | | | Oral Tablet [Benicar] | [facility] | + + + + | (no ) | naproxen sodium 220 MG | [facility] | | | Oral Tablet [Aleve] | [facility] | + + + + | (no date) | TAMSULOSIN HCL | [facility] | | | | [facility] | + + + + | (no date) | tamsulosin hydrochloride | [facility] | | | 0.4 MG Oral Capsule | [facility] | + + + + | (no date) | TAMSULOSIN HCL | [facility] | | | | [facility] | + + + + | (no date) | tamsulosin hydrochloride | [facility] | | | 0.4 MG Oral Capsule | [facility] | | | [Flomax] | | + + + + Problems + + + + | date | description | facility | + + + + | 2025-06-26 00:00 | Elevated troponin | [facility] | | | | 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 | + + + + | 2025-06-26 00:00 | Malaise | [facility] | | | | [facility] | + + + + | 2025-06-26 00:00 | Elevated troponin level | [facility] | | | | [facility] | + + + + | 2025-06-30 00:00 | Weakness | [facility] | | | | [facility] | + + + + | 2025-07-01 00:00 | Liver abscess | [facility] | | | | [facility] | + + + + | 2025-07-01 00:00 | Hyponatremia | [facility] | | | | [facility] | + + + + | 2025-07-01 00:00 | Abscess of liver | [facility] | | | | [facility] | + + + + | 2025-08-24 00:00 | C. difficile colitis | [facility] | | | | [facility] | + + + + | 2025-08-24 00:00 | Colitis due to | [facility] | | | Clostridioides difficile | [facility] | + + + + Procedures No information. Results/Labs +--------+--------+ +---------+--------+---------+ | test | date | facility | value | unit | notes | +--------+--------+ +---------+--------+---------+ + + | Result panel 1 | + + + + + +-------+ + + | Serum or | 2025-06-26 | | 2.4 | (missing) | (missing) | | plasma | 17:25 | [facility] | | | | | magnesium | [facility] measurement | [facility] | | | | | (mass/volume | | [facility] | | | | | ) | | | | | | + + + +-------+ + + + + | Result panel 2 | + + + + + +---------+ + + | Blood | 2025-06-26 | | 16.32 | (missing) | (missing) | | leukocytes | 17:25 | [facility] | | | | | automated | [facility] | count | | [facility] | | | | | (number/volu | | Hospital | | | | | me) | | | | | | + + + +---------+ + + + + | Result panel 3 | + + + + + +--------+ + + | Blood | 2025-06-26 | | 3.72 | (missing) | (missing) | | erythrocytes | 17:25 | [facility] | | | | | automated | [facility] | count | | [facility] | | | | | (number/volu | | Hospital | | | | | me) | | | | | | + + + +--------+ + + + + | Result panel 4 | + + + + + +--------+ + + | Blood | 2025-06-26 | | 11.7 | (missing) | (missing) | | hemoglobin | 17:25 | [facility] | | | | | measurement | [facility] | (mass/volume | | [facility] | | | | ) | | [facility] | | | | + + + +--------+ + + + + | Result panel 5 | + + + + + +--------+ + + | Automated | 2025-06-26 | | 34.2 | (missing) | (missing) | | blood | 17:25 | [facility] | | | | | hematocrit | [facility] | | [facility] | | | | + + + +--------+ + + + + | Result panel 6 | + + + + + +--------+ + + | Automated | 2025-06-26 | | 91.9 | (missing) | (missing) | | erythrocyte | 17:25 | [facility] | | | | | mean | | - [facility] | | | | | corpuscular | | [facility] | | | | | volume | | [facility] | | | | + + + +--------+ + + + + | Result panel 7 | + + + + + +--------+ + + | Automated | 2025-06-26 | | 31.5 | (missing) | (missing) | | erythrocyte | 17:25 | [facility] | | | | | mean | | - [facility] | | | | | corpuscular | | [facility] | | | | | hemoglobin | | [facility] | | | | | (mass per | | | | | | | erythrocyte) | | | | | | | | | | | | | + + + +--------+ + + + + | Result panel 8 | + + + + + +--------+ + + | Automated | 2025-06-26 | | 34.2 | (missing) | (missing) | | erythrocyte | 17:25 | [facility] | | | | | mean | | - [facility] | | | | | corpuscular | | [facility] | | | | | hemoglobin | | Hospital | | | | | concentratio | | | | | | | n | | | | | | | measurement | | | | | | | (mass/volume | | | | | | | ) | | | | | | + + + +--------+ + + + + | Result panel 9 | + + + + + +-------+ + + | Automated | 2025-06-26 | | 276 | (missing) | (missing) | | blood | 17:25 | [facility] | | | | | platelet | [facility] | count | | [facility] | | | | | (count/volum | | Hospital | | | | | e) | | | | | | + + + +-------+ + + + + | Result panel 10 | + + + + + +--------+ + + | Automated | 2025-06-26 | | 81.8 | (missing) | (missing) | | blood | 17:25 | [facility] | | | | | neutrophil | [facility] | | | | | count as | | [facility] | | | | | percentage | | Hospital | | | | | of total | | | | | | | leukocytes | | | | | | + + + +--------+ + + + + | Result panel 11 | + + + + + +-------+ + + | Automated | 2025-06-26 | | 6.2 | (missing) | (missing) | | blood | 17:25 | [facility] | | | | | lymphocyte | [facility] | | | | | count as | | [facility] | | | | | percentage | | Hospital | | | | | ot total | | | | | | | leukocytes | | | | | | + + + +-------+ + + + + | Result panel 12 | + + + + + +--------+ + + | Automated | 2025-06-26 | | 10.9 | (missing) | (missing) | | blood | 17:25 | [facility] | | | | | monocyte | | - [facility] | | | | | count as | | [facility] | | | | | percentage | | Hospital | | | | | of total | | | | | | | leukocytes | | | | | | + + + +--------+ + + + + | Result panel 13 | + + + + + +-------+ + + | Automated | 2025-06-26 | | 0.5 | (missing) | (missing) | | blood | 17:25 | [facility] | | | | | eosinophil | | - [facility] | | [facility] | count as | | [facility] | | | | | percentage | | Hospital | | | | | of total | | | | | | | leukocytes | | | | | | + + + +-------+ + + + + | Result panel 14 | + + + + + +-------+ + + | Automated | 2025-06-26 | | 0.1 | (missing) | (missing) | | blood | 17:25 | [facility] | | | | | basophil | | - [facility] | | | | | count as | | [facility] | [facility] | | | percentage | | Hospital | | | | | of total | | | | | | | leukocytes | | | | | | + + + +-------+ + + + + | Result panel 15 | + + + + + +--------+ + + | Prothrombin | 2025-06-26 | | 14.3 | (missing) | (missing) | | time (PT) | 17:25 | [facility] | | | | | in platelet | [facility] | | | | | poor plasma | | [facility] | | | | | by | | Hospital | | | | | coagulation | | | | | | | assay | | | | | | + + + +--------+ + + + + | Result panel 16 | + + + + + +--------+ + + | INR in | 2025-06-26 | | 1.19 | (missing) | (missing) | | Platelet | 17:25 | [facility] | | | | | poor plasma | [facility] | | [facility] | by | | [facility] | | | | | Coagulation | | Hospital | | | | | assay | | | | | | + + + +--------+ + + + + | Result panel 17 | + + + + + +-------+ + + | Serum or | 2025-06-26 | | 156 | (missing) | (missing) | | plasma | 17:25 | [facility] | | | | | glucose | | [facility] | | [facility] | measurement | | [facility] | | | | | (mass/volume | | Hospital | | | | | ) | | | | | | + + + +-------+ + + + + | Result panel 18 | + + + + + +------+ + + | Serum or | 2025-06-26 | | 23 | (missing) | (missing) | | plasma urea | 17:25 | [facility] | | | | | nitrogen | [facility] - [facility] | | [facility] | | measurement | | [facility] | | | | | (mass/volume | | Hospital | | | | | ) | | | | | | + + + +------+ + + + + | Result panel 19 | + + + + + +--------+ + + | Serum or | 2025-06-26 | | 1.40 | (missing) | (missing) | | plasma | 17:25 | [facility] | | | | | creatinine | [facility] | | [facility] | measurement | | [facility] | | | | | (mass/volume | | Hospital | | | | | ) | | | | | | + + + +--------+ + + + + | Result panel 20 | + + + + + +------+ + + | Glomerular | 2025-06-26 | | 49 | (missing) | (missing) | | filtration | 17:25 | [facility] | | | | | rate/1.73 sq | | [facility] | | | | | M.predicted | | [facility] | | | | | [Volume | | Hospital | | | | | Rate/Area] | | | | | | | inSerum, | | | | | | | Plasma or | | | | | | | Blood by | | | | | | | Creatinine-b | | | | | | | ased formula | | | | | | | (CKD-EPI | | | | | | | 2020) | | | | | | + + + +------+ + + + + | Result panel 21 | + + + + + +---------+ + + | Serum or | 2025-06-26 | | 16.42 | (missing) | (missing) | | plasma urea | 17:25 | [facility] | | | | | nitrogen/cre | | - [facility] | | | | | atinine mass | | [facility] | | | | | ratio | | [facility] | | | | + + + +---------+ + + + + | Result panel 22 | + + + + + +-------+ + + | Serum or | 2025-06-26 | | 131 | (missing) | (missing) | | plasma | 17:25 | [facility] | | | | | sodium | | [facility] | | [facility] | | measurement | | [facility] | | | | | (moles/volum | | Hospital | | | | | e) | | | | | | + + + +-------+ + + + + | Result panel 23 | + + + + + +-------+ + + | Serum or | 2025-06-26 | | 3.9 | (missing) | (missing) | | plasma | 17:25 | [facility] | | | | | potassium | [facility] | | [facility] | measurement | | [facility] | | | | | (moles/volum | | Hospital | | | | | e) | | | | | | + + + +-------+ + + + + | Result panel 24 | + + + + + +------+ + + | Serum or | 2025-06-26 | | 97 | (missing) | (missing) | | plasma | 17:25 | [facility] | | | | | chloride | [facility] | | [facility] | | measurement | | [facility] | | | | | (moles/volum | | Hospital | | | | | e) | | | | | | + + + +------+ + + + + | Result panel 25 | + + + + + +------+ + + | Serum or | 2025-06-26 | | 27 | (missing) | (missing) | | plasma | 17:25 | [facility] | | | | | carbon | [facility] | | | | | dioxide, | | [facility] | | | | | total | | Hospital | | | | | measurement | | | | | | | (moles/volum | | | | | | | e) | | | | | | + + + +------+ + + + + | Result panel 26 | + + + + + +--------+ + + | Serum or | 2025-06-26 | | 10.9 | (missing) | (missing) | | plasma anion | 17:25 | [facility] | | | | | gap 4 | [facility] | | [facility] | [facility] | | | | + + + +--------+ + + + + | Result panel 27 | + + + + + +-------+ + + | Serum or | 2025-06-26 | | 8.9 | (missing) | (missing) | | plasma | 17:25 | [facility] | | | | | calcium | | [facility] | | [facility] | | measurement | | [facility] | | | | | (mass/volume | | Hospital | | | | | ) | | | | | | + + + +-------+ + + + + | Result panel 28 | + + + + + +-------+ + + | Serum or | 2025-06-26 | | 2.4 | (missing) | (missing) | | plasma | 17:25 | [facility] | | | | | magnesium | | - [facility] | | [facility] | | measurement | | [facility] | | | | | (mass/volume | | Hospital | | | | | ) | | | | | | + + + +-------+ + + + + | Result panel 29 | + + + + + +-------+ + + | Serum or | 2025-06-26 | | 6.5 | (missing) | (missing) | | plasma | 17:25 | [facility] | | | | | protein | | [facility] | | [facility] | measurement | | [facility] | | | | | (mass/volume | | Hospital | | | | | ) | | | | | | + + + +-------+ + + + + | Result panel 30 | + + + + + +-------+ + + | Serum or | 2025-06-26 | | 2.6 | (missing) | (missing) | | plasma | 17:25 | [facility] | | | | | albumin | | [facility] | | [facility] | measurement | | [facility] | | | | | (mass/volume | | Hospital | | | | | ) | | | | | | + + + +-------+ + + + + | Result panel 31 | + + + + + +-------+ + + | Serum | 2025-06-26 | | 3.9 | (missing) | (missing) | | globulin | 17:25 | [facility] | | | | | measurement | | [facility] | | | | | (mass/volume | | [facility] | | | | ) | | [facility] | | | | + + + +-------+ + + + + | Result panel 32 | + + + + + +--------+ + + | Serum or | 2025-06-26 | | 0.67 | (missing) | (missing) | | plasma | 17:25 | [facility] | | | | | albumin/glob | [facility] | | | | | ulin mass | | [facility] | | | | | ratio | | [facility] | | | | + + + +--------+ + + + + | Result panel 33 | + + + + + +-------+ + + | Serum or | 2025-06-26 | | 0.4 | (missing) | (missing) | | plasma total | 17:25 | [facility] | | | | | bilirubin | [facility] | [facility] | | measurement | | [facility] | | | | | (mass/volume | | Hospital | | | | | ) | | | | | | + + + +-------+ + + + + | Result panel 34 | + + + + + +------+ + + | Serum or | 2025-06-26 | | 37 | (missing) | (missing) | | plasma | 17:25 | [facility] | | | | | aspartate | [facility] | | | | | aminotransfe | | [facility] | | | | | rase | | Hospital | | | | | measurement | | | | | | | (enzymatic | | | | | | | activity/vol | | | | | | | ume) | | | | | | + + + +------+ + + + + | Result panel 35 | + + + + + +------+ + + | Serum or | 2025-06-26 | | 52 | (missing) | (missing) | | plasma | 17:25 | [facility] | | | | | alanine | | [facility] | | | | | aminotransfe | | [facility] | | | | | rase | | Hospital | | | | | measurement | | | | | | | (enzymatic | | | | | | | activity/vol | | | | | | | ume) | | | | | | + + + +------+ + + + + | Result panel 36 | + + + + + +-------+ + + | Serum or | 2025-06-26 | | 177 | (missing) | (missing) | | plasma | 17:25 | [facility] | | | | | alkaline | [facility] | | | | | phosphatase | | [facility] | | | | | measurement | | [facility] | | | | | (enzymatic | | | | | | | activity/vol | | | | | | | ume) | | | | | | + + + +-------+ + + + + | Result panel 37 | + + + + + +--------+ + + | Serum or | 2025-06-26 | | 96.2 | (missing) | (missing) | | plasma | 19:17 | [facility] | | | | | cardiac | [facility] | | | | | troponin I | | [facility] | | | | | measurement | | [facility] | | | | | by high | | | | | | | senstivity | | | | | | | method | | | | | | | (mass/volume | | | | | | | ) | | | | | | + + + +--------+ + + + + | Result panel 38 | + + + + + + + + + | Color of | 2025-06-26 | | YELLOW | (missing) | (missing) | | Urine by | 20:00 | [facility] | | | | | Auto | [facility] | | | | | [facility] | | | | + + + + + + + + + | Result panel 39 | + + + + + +---------+ + + | Character | 2025-06-26 | | CLEAR | (missing) | (missing) | | of Urine | 20:00 | [facility] | | | | | | [facility] | | [facility] | [facility] | | | | + + + +---------+ + + + + | Result panel 40 | + + + + + + + + + | Glucose | 2025-06-26 | | NEGATIVE | (missing) | (missing) | | [Presence] | 20:00 | [facility] | | | | | in Urine by | [facility] - [facility] | | | | Test strip | | [facility] | | [facility] | | | | + + + + + + + + + | Result panel 41 | + + + + + + + + + | Urine total | 2025-06-26 | | NEGATIVE | (missing) | (missing) | | bilirubin | 20:00 | [facility] | | | | | detection by | | - [facility] | | | | test strip | | [facility] | [facility] | | | | + + + + + + + + + | Result panel 42 | + + + + + +---------+ + + | Urine | 2025-06-26 | | TRACE | (missing) | (missing) | | ketones | 20:00 | [facility] | | | | | detection by | | - [facility] | test strip | [facility] | | | | + + + +---------+ + + + + | Result panel 43 | + + + + + +---------+ + + | Specific | 2025-06-26 | | 1.025 | (missing) | (missing) | | gravity ur | 20:00 | [facility] | | | | | dipstick | | - [facility] | | [facility] | | | | + + + +---------+ + + + + | Result panel 44 | + + + + + + + + + | Urine | 2025-06-26 | | NEGATIVE | (missing) | (missing) | | hemoglobin | 20:00 | [facility] | | | | | detection by | | - [facility] | test strip | [facility] | | | | + + + + + + + + + | Result panel 45 | + + + + + +-------+ + + | Urine pH | 2025-06-26 | | 6.5 | (missing) | (missing) | | measurement | 20:00 | [facility] | | | | | by test | | - [facility] | strip | [facility] | | | | + + + +-------+ + + + + | Result panel 46 | + + + + + +------+ + + | Protein | 2025-06-26 | | 30 | (missing) | (missing) | | urine test | 20:00 | [facility] | | | | | strip | | - [facility] | | | | + + + +------+ + + + + | Result panel 47 | + + + + + +-------+ + + | | 2025-06-26 | | 2.0 | (missing) | (missing) | | Urobilinogen | 20:00 | [facility] | | | | | | | - [facility] | | | | | [Mass/volume | | [facility] | | | | | ] in Urine | | Hospital | | | | | by Test | | | | | | | strip | | | | | | + + + +-------+ + + + + | Result panel 48 | + + + + + + + + + | Urine | 2025-06-26 | | NEGATIVE | (missing) | (missing) | | nitrite | 20:00 | [facility] | | | | | detection by | | - [facility] | test strip | [facility] | | | | + + + + + + + + + | Result panel 49 | + + + + + + + + + | Urine | 2025-06-26 | | NEGATIVE | (missing) | (missing) | | leukocyte | 20:00 | [facility] | | | | | esterase | | - [facility] detection by | | [facility] | | | | dipstick | | [facility] | | | | + + + + + + + + + | Result panel 50 | + + + + + +-------+ + + | Automated | 2025-06-26 | | 4-6 | (missing) | (missing) | | urine | 20:00 | [facility] | | | | | sediment | | - [facility] | | | | | erythrocyte | | [facility] | | | | | count by | | Hospital | | | | | microscopy | | | | | | | (number/high | | | | | | | power | | | | | | | field) | | | | | | + + + +-------+ + + + + | Result panel 51 | + + + + + +-------+ + + | Automated | 2025-06-26 | | 0-1 | (missing) | (missing) | | urine | 20:00 | [facility] | | | | | sediment | | - [facility] | | | | | leukocyte | | [facility] | | | | | count by | | Hospital | | | | | microscopy | | | | | | | (number/high | | | | | | | power | | | | | | | field) | | | | | | + + + +-------+ + + + + | Result panel 52 | + + + + + + + + + | Automated | 2025-06-26 | | SQUAMOUS 1+ | (missing) | (missing) | | urine | 20:00 | [facility] | | | | | sediment | | - [facility] | | | | | epithelial | | [facility] | | | | | cell count | | Hospital | | | | | by | | | | | | | microscopy | | | | | | | (number/high | | | | | | | power | | | | | | | field) | | | | | | + + + + + + + + + | Result panel 53 | + + + + + + + + + | [facility] | 2025-06-26 | | NONE SEEN | (missing) | (missing) | | typing in | 20:00 | [facility] | | | | | urine | | - [facility] | | [facility] | sediment by | | [facility] | | | | | light | | [facility] | | | | | microscopy | | | | | | + + + + + + + + + | Result panel 54 | + + + + + +--------+ + + | Automated | 2025-06-26 | | RARE | (missing) | (missing) | | urine | 20:00 | [facility] | | | | | sediment | | - [facility] | | | | | bacteria | | [facility] | | | | | count by | | Hospital | | | | | microscopy | | | | | | | (number/high | | | | | | | power | | | | | | | field) | | | | | | + + + +--------+ + + + + | Result panel 55 | + + + + + + + + + | Automated | 2025-06-26 | | NONE SEEN | (missing) | (missing) | | casts count | 20:00 | [facility] | | | | | in urine | | - [facility] | | | | | sediment by | | [facility] | | | | | microscopy | | Hospital | | | | | low power | | | | | | | field | | | | | | | (number/area | | | | | | | ) | | | | | | + + + + + + + + + | Result panel 56 | + + + + + +------+ + + | Reflexive | 2025-06-26 | | No | (missing) | (missing) | | urine | 20:00 | [facility] | | | | | bacterial | | - [facility] | [facility] | culture | | [facility] | [facility] | | [facility] | | | | + + + +------+ + + + + | Result panel 57 | + + + + + + + + + | Urinalysis | 2025-06-26 | | CLEAN CATCH | (missing) | (missing) | | specimen | 20:00 | [facility] | | | | | collection | | - [facility] | method | [facility] | | | | + + + + + + + + + | Result panel 58 | + + + + + + + + + | Respiratory | 2025-06-30 | | NEGATIVE | (missing) | (missing) | | specimen | 14:56 | [facility] | | | | | 2018 novel | | - [facility] | coronavirus | | [facility] | | | | | RNA | | Hospital | | | | | detection | | | | | | + + + + + + + + + | Result panel 59 | + + + + + + + + + | Influenza | 2025-06-30 | | NEGATIVE | (missing) | (missing) | | virus A RNA | 14:56 | [facility] | | | | | [Presence] | | - [facility] | | [facility] | in | | [facility] | | | | | Respiratory | | Hospital | | | | | specimen by | | | | | | | [facility] | | | | | | | withprobe | | | | | | | detection | | | | | | + + + + + + + + + | Result panel 60 | + + + + + + + + + | Influenza | 2025-06-30 | | NEGATIVE | (missing) | (missing) | | virus B RNA | 14:56 | [facility] | | | | | [Presence] | | - [facility] | in | | [facility] | | | | | Respiratory | | Hospital | | | | | specimen by | | | | | | | [facility] | | | | | | | withprobe | | | | | | | detection | | | | | | + + + + + + + + + | Result panel 61 | + + + + + + + + + | Respiratory | 2025-06-30 | | NEGATIVE | (missing) | (missing) | | syncytial | 14:56 | [facility] | | | | | virus (RSV) | | - [facility] | | | | | RNA | | [facility] | | | | | detection by | | Hospital | | | | | probe and | | | | | | | target | | | | | | | amplificatio | | | | | | | n method in | | | | | | | culture | | | | | | | isolate | | | | | | + + + + + + + + + | Result panel 62 | + + + + + +--------+ + + | Blood | 2025-06-30 | | 3.63 | (missing) | (missing) | | erythrocytes | 16:36 | [facility] | | | | | automated | | - [facility] | | [facility] | count | | [facility] | | | | | (number/volu | | Hospital | | | | | me) | | | | | | + + + +--------+ + + + + | Result panel 63 | + + + + + +--------+ + + | Blood | 2025-06-30 | | 11.2 | (missing) | (missing) | | hemoglobin | 16:36 | [facility] | | | | | measurement | | - [facility] | | | | | (mass/volume | | [facility] | | | | ) | | [facility] | | | | + + + +--------+ + + + + | Result panel 64 | + + + + + +--------+ + + | Automated | 2025-06-30 | | 32.3 | (missing) | (missing) | | blood | 16:36 | [facility] | | | | | hematocrit | | - [facility] | | [facility] | | [facility] | | [facility] | | | | + + + +--------+ + + + + | Result panel 65 | + + + + + +--------+ + + | Automated | 2025-06-30 | | 89.0 | (missing) | (missing) | | erythrocyte | 16:36 | [facility] | | | | | mean | | - [facility] | | | | | corpuscular | | [facility] | | | | | volume | | [facility] | | | | + + + +--------+ + + + + | Result panel 66 | + + + + + +--------+ + + | Automated | 2025-06-30 | | 30.9 | (missing) | (missing) | | erythrocyte | 16:36 | [facility] | | | | | mean | | - [facility] | | | | | corpuscular | | [facility] | | | | | hemoglobin | | Hospital | | | | | (mass per | | | | | | | erythrocyte) | | | | | | | | | | | | | + + + +--------+ + + + + | Result panel 67 | + + + + + +--------+ + + | Automated | 2025-06-30 | | 34.7 | (missing) | (missing) | | erythrocyte | 16:36 | [facility] | | | | | mean | | - [facility] | | | | | corpuscular | | [facility] | | | | | hemoglobin | | Hospital | | | | | concentratio | | | | | | | n | | | | | | | measurement | | | | | | | (mass/volume | | | | | | | ) | | | | | | + + + +--------+ + + + + | Result panel 68 | + + + + + +-------+ + + | Automated | 2025-06-30 | | 262 | (missing) | (missing) | | blood | 16:36 | [facility] | | | | | platelet | | - [facility] | | [facility] | count | | [facility] | | | | | (count/volum | | Hospital | | | | | e) | | | | | | + + + +-------+ + + + + | Result panel 69 | + + + + + +--------+ + + | Automated | 2025-06-30 | | 91.5 | (missing) | (missing) | | blood | 16:36 | [facility] | | | | | neutrophil | | - [facility] | | [facility] | count as | | [facility] | | | | | percentage | | Hospital | | | | | of total | | | | | | | leukocytes | | | | | | + + + +--------+ + + + + | Result panel 70 | + + + + + +-------+ + + | Automated | 2025-06-30 | | 1.7 | (missing) | (missing) | | blood | 16:36 | [facility] | | | | | lymphocyte | | - [facility] | | | | | count as | | [facility] | | | | | percentage | | Hospital | | | | | ot total | | | | | | | leukocytes | | | | | | + + + +-------+ + + + + | Result panel 71 | + + + + + +-------+ + + | Automated | 2025-06-30 | | 5.3 | (missing) | (missing) | | blood | 16:36 | [facility] | | | | | monocyte | | - [facility] | | | | | count as | | [facility] | | | | | percentage | | Hospital | | | | | of total | | | | | | | leukocytes | | | | | | + + + +-------+ + + + + | Result panel 72 | + + + + + +-------+ + + | Automated | 2025-06-30 | | 0.2 | (missing) | (missing) | | blood | 16:36 | [facility] | | | | | eosinophil | | - [facility] | | | | | count as | | [facility] | | | | | percentage | | Hospital | | | | | of total | | | | | | | leukocytes | | | | | | + + + +-------+ + + + + | Result panel 73 | + + + + + +-------+ + + | Automated | 2025-06-30 | | 0.1 | (missing) | (missing) | | blood | 16:36 | [facility] | | | | | basophil | | - [facility] | | | [facility] | count as | | [facility] | | | | | percentage | | Hospital | | | | | of total | | | | | | | leukocytes | | | | | | + + + +-------+ + + + + | Result panel 74 | + + + + + +--------+ + + | Prothrombin | 2025-06-30 | | 14.1 | (missing) | (missing) | | time (PT) | 16:36 | [facility] | | | | | in platelet | | - [facility] | | | | | poor plasma | | [facility] | | | | | by | | Hospital | | | | | coagulation | | | | | | | assay | | | | | | + + + +--------+ + + + + | Result panel 75 | + + + + + +--------+ + + | INR in | 2025-06-30 | | 1.13 | (missing) | (missing) | | Platelet | 16:36 | [facility] | | | | | poor plasma | | - [facility] | | [facility] | by | | [facility] | | | | | Coagulation | | Hospital | | | | | assay | | | | | | + + + +--------+ + + + + | Result panel 76 | + + + + + +-------+ + + | Serum or | 2025-06-30 | | 6.0 | (missing) | (missing) | | plasma | 16:36 | [facility] | | | | | protein | | - [facility] | | [facility] | measurement | | [facility] | | | | | (mass/volume | | Hospital | | | | | ) | | | | | | + + + +-------+ + + + + | Result panel 77 | + + + + + +-------+ + + | Serum or | 2025-06-30 | | 2.0 | (missing) | (missing) | | plasma | 16:36 | [facility] | | | | | albumin | | - [facility] | | | | | measurement | | [facility] | | | | | (mass/volume | | Hospital | | | | | ) | | | | | | + + + +-------+ + + + + | Result panel 78 | + + + + + +-------+ + + | Serum | 2025-06-30 | | 4.0 | (missing) | (missing) | | globulin | 16:36 | [facility] | | | | | measurement | | - [facility] | | | | | (mass/volume | | [facility] | | | | ) | | [facility] | | | | + + + +-------+ + + + + | Result panel 79 | + + + + + +--------+ + + | Serum or | 2025-06-30 | | 0.50 | (missing) | (missing) | | plasma | 16:36 | [facility] | | | | | albumin/glob | | - [facility] | | [facility] | | ulin mass | | [facility] | | | | | ratio | | [facility] | | | | + + + +--------+ + + + + | Result panel 80 | + + + + + +-------+ + + | Serum or | 2025-06-30 | | 1.1 | (missing) | (missing) | | plasma total | 16:36 | [facility] | | | | | bilirubin | | - [facility] | | [facility] | measurement | | [facility] | | | | | (mass/volume | | Hospital | | | | | ) | | | | | | + + + +-------+ + + + + | Result panel 81 | + + + + + +------+ + + | Serum or | 2025-06-30 | | 96 | (missing) | (missing) | | plasma | 16:36 | [facility] | | | | | aspartate | | - [facility] | | | | | aminotransfe | | [facility] | | | | | rase | | Hospital | | | | | measurement | | | | | | | (enzymatic | | | | | | | activity/vol | | | | | | | ume) | | | | | | + + + +------+ + + + + | Result panel 82 | + + + + + +-------+ + + | Serum or | 2025-06-30 | | 119 | (missing) | (missing) | | plasma | 16:36 | [facility] | | | | | alanine | | - [facility] | | | | | aminotransfe | | [facility] | | | | | rase | | Hospital | | | | | measurement | | | | | | | (enzymatic | | | | | | | activity/vol | | | | | | | ume) | | | | | | + + + +-------+ + + + + | Result panel 83 | + + + + + +-------+ + + | Serum or | 2025-06-30 | | 738 | (missing) | (missing) | | plasma | 16:36 | [facility] | | | | | alkaline | | - [facility] | | | | | phosphatase | | [facility] | | | | | measurement | | Hospital | | | | | (enzymatic | | | | | | | activity/vol | | | | | | | ume) | | | | | | + + + +-------+ + + + + | Result panel 84 | + + + + + +--------+ + + | Serum or | 2025-06-30 | | 23.4 | (missing) | (missing) | | plasma | 16:36 | [facility] | | | | | cardiac | | - [facility] | | | | | troponin I | | [facility] | | | | | measurement | | Hospital | | | | | by high | | | | | | | senstivity | | | | | | | method | | | | | | | (mass/volume | | | | | | | ) | | | | | | + + + +--------+ + + + + | Result panel 85 | + + + + + +---------+ + + | Blood | 2025-06-30 | | 18.76 | (missing) | (missing) | | leukocytes | 16:36 | [facility] | | | | | automated | | - [facility] | | | [facility] | count | | [facility] | | | | | (number/volu | | Hospital | | | | | me) | | | | | | + + + +---------+ + + + + | Result panel 86 | + + + + + +-------+ + + | Serum or | 2025-06-30 | | 1.4 | (missing) | (missing) | | plasma | 17:50 | [facility] | | | | | lactate | | - [facility] | | | | | measurement | | [facility] | | | | | (moles/volum | | Hospital | | | | | e) | | | | | | + + + +-------+ + + + + | Result panel 87 | + + + + + + + + + | Color of | 2025-06-30 | | YELLOW | (missing) | (missing) | | Urine by | 22:00 | [facility] | | | | | Auto | | - [facility] | | | | | | | [facility] | | | | | | [facility] | | | | + + + + + + + + + | Result panel 88 | + + + + + +---------+ + + | Character | 2025-06-30 | | CLEAR | (missing) | (missing) | | of Urine | 22:00 | [facility] | | | | | | | - [facility] | | | | | | | [facility] | | [facility] | | [facility] | | | | + + + +---------+ + + + + | Result panel 89 | + + + + + + + + + | Glucose | 2025-06-30 | | NEGATIVE | (missing) | (missing) | | [Presence] | 22:00 | [facility] | | | | | in Urine by | | - [facility] | Test strip | | [facility] | [facility] | | | | + + + + + + + + + | Result panel 90 | + + + + + + + + + | Urine total | 2025-06-30 | | NEGATIVE | (missing) | (missing) | | bilirubin | 22:00 | [facility] | | | | | detection by | | - [facility] | test strip | | [facility] | | [facility] | | | | + + + + + + + + + | Result panel 91 | + + + + + +---------+ + + | Urine | 2025-06-30 | | TRACE | (missing) | (missing) | | ketones | 22:00 | [facility] | | | | | detection by | | - [facility] | test strip | [facility] | | [facility] | | | | + + + +---------+ + + + + | Result panel 92 | + + + + + +---------+ + + | Specific | 2025-06-30 | | 1.015 | (missing) | (missing) | | gravity ur | 22:00 | [facility] | | | | | dipstick | | - [facility] | | | | | [facility] | | [facility] | | | | + + + +---------+ + + + + | Result panel 93 | + + + + + + + + + | Urine | 2025-06-30 | | NEGATIVE | (missing) | (missing) | | hemoglobin | 22:00 | [facility] | | | | | detection by | | - [facility] | test strip | | [facility] | | [facility] | | | | + + + + + + + + + | Result panel 94 | + + + + + +-------+ + + | Urine pH | 2025-06-30 | | 6.0 | (missing) | (missing) | | measurement | 22:00 | [facility] | | | | | by test | | - [facility] | | strip | | [facility] | | [facility] | | | | + + + +-------+ + + + + | Result panel 95 | + + + + + +------+ + + | Protein | 2025-06-30 | | 30 | (missing) | (missing) | | urine test | 22:00 | [facility] | | | | | strip | | - [facility] | | | | | | | [facility] | | | | | [facility] | | | | + + + +------+ + + + + | Result panel 96 | + + + + + +-------+ + + | | 2025-06-30 | | 4.0 | (missing) | (missing) | | Urobilinogen | 22:00 | [facility] | | | | | | | - [facility] | | | | | [Mass/volume | | [facility] | | | | | ] in Urine | | Hospital | | | | | by Test | | | | | | | strip | | | | | | + + + +-------+ + + + + | Result panel 97 | + + + + + + + + + | Urine | 2025-06-30 | | NEGATIVE | (missing) | (missing) | | nitrite | 22:00 | [facility] | | | | | detection by | | - [facility] | [facility] | test strip | | [facility] | [facility] | | [facility] | | | | + + + + + + + + + | Result panel 98 | + + + + + + + + + | Urine | 2025-06-30 | | NEGATIVE | (missing) | (missing) | | leukocyte | 22:00 | [facility] | | | | | esterase | | - [facility] | | | | | detection by | | [facility] | | | | | dipstick | | Hospital | | | | + + + + + + + + + | Result panel 99 | + + + + + +-------+ + + | Automated | 2025-06-30 | | 0-1 | (missing) | (missing) | | urine | 22:00 | [facility] | | | | | sediment | | - [facility] | | | | | erythrocyte | | [facility] | | | | | count by | | Hospital | | | | | microscopy | | | | | | | (number/high | | | | | | | power | | | | | | | field) | | | | | | + + + +-------+ + + + + | Result panel 100 | + + + + + +-------+ + + | Automated | 2025-06-30 | | 2-3 | (missing) | (missing) | | urine | 22:00 | [facility] | | | | | sediment | | - [facility] | | | | | leukocyte | | [facility] | | | | | count by | | Hospital | | | | | microscopy | | | | | | | (number/high | | | | | | | power | | | | | | | field) | | | | | | + + + +-------+ + + + + | Result panel 101 | + + + + + + + + + | Automated | 2025-06-30 | | SQUAMOUS 1+ | (missing) | (missing) | | urine | 22:00 | [facility] | | | | | sediment | | - [facility] | | | | | epithelial | | [facility] | | | | | cell count | | Hospital | | | | | by | | | | | | | microscopy | | | | | | | (number/high | | | | | | | power | | | | | | | field) | | | | | | + + + + + + + + + | Result panel 102 | + + + + + + + + + | [facility] | 2025-06-30 | | NONE SEEN | (missing) | (missing) | | typing in | 22:00 | [facility] | | | | | urine | | - [facility] | | | | | sediment by | | [facility] | | | | | light | | Hospital | | | | | microscopy | | | | | | + + + + + + + + + | Result panel 103 | + + + + + +--------+ + + | Automated | 2025-06-30 | | RARE | (missing) | (missing) | | urine | 22:00 | [facility] | | | | | sediment | | - [facility] | | | | | bacteria | | [facility] | | | | | count by | | Hospital | | | | | microscopy | | | | | | | (number/high | | | | | | | power | | | | | | | field) | | | | | | + + + +--------+ + + + + | Result panel 104 | + + + + + + + + + | Automated | 2025-06-30 | | HYALINE 1+ | (missing) | (missing) | | casts count | 22:00 | [facility] | | | | | in urine | | - [facility] | | | | | sediment by | | [facility] | | | | | microscopy | | Hospital | | | | | low power | | | | | | | field | | | | | | | (number/area | | | | | | | ) | | | | | | + + + + + + + + + | Result panel 105 | + + + + + +------+ + + | Reflexive | 2025-06-30 | | No | (missing) | (missing) | | urine | 22:00 | [facility] | | | | | bacterial | | - [facility] | | | | | culture | | [facility] | | | | | | [facility] | | | | + + + +------+ + + + + | Result panel 106 | + + + + + + + + + | Urinalysis | 2025-06-30 | | CLEAN CATCH | (missing) | (missing) | | specimen | 22:00 | [facility] | | | | | collection | | - [facility] | | | | | method | | [facility] | | | | | | [facility] | | | | + + + + + + + + + | Result panel 107 | + + + + + +-------+ + + | Serum or | 2025-06-30 | | 169 | (missing) | (missing) | | plasma | 23:48 | [facility] | | | | | glucose | | - [facility] | | | | | measurement | | [facility] | | | | | (mass/volume | | Hospital | | | | | ) | | | | | | + + + +-------+ + + + + | Result panel 108 | + + + + + +------+ + + | Serum or | 2025-06-30 | | 27 | (missing) | (missing) | | plasma urea | 23:48 | [facility] | | | | | nitrogen | | - [facility] | | | | | measurement | | [facility] | | | | | (mass/volume | | Hospital | | | | | ) | | | | | | + + + +------+ + + + + | Result panel 109 | + + + + + +--------+ + + | Serum or | 2025-06-30 | | 1.56 | (missing) | (missing) | | plasma | 23:48 | [facility] | | | | | creatinine | | - [facility] | | | | | measurement | | [facility] | | | | | (mass/volume | | Hospital | | | | | ) | | | | | | + + + +--------+ + + + + | Result panel 110 | + + + + + +------+ + + | Glomerular | 2025-06-30 | | 43 | (missing) | (missing) | | filtration | 23:48 | [facility] | | | | | rate/1.73 sq | | - [facility] | | | | | M.predicted | | [facility] | | | | | [Volume | | Hospital | | | | | Rate/Area] | | | | | | | inSerum, | | | | | | | Plasma or | | | | | | | Blood by | | | | | | | Creatinine-b | | | | | | | ased formula | | | | | | | (CKD-EPI | | | | | | | 2020) | | | | | | + + + +------+ + + + + | Result panel 111 | + + + + + +---------+ + + | Serum or | 2025-06-30 | | 17.30 | (missing) | (missing) | | plasma urea | 23:48 | [facility] | | | | | nitrogen/cre | | - [facility] | | | | | atinine mass | | [facility] | | | | | ratio | | Hospital | | | | + + + +---------+ + + + + | Result panel 112 | + + + + + +-------+ + + | Serum or | 2025-06-30 | | 122 | (missing) | (missing) | | plasma | 23:48 | [facility] | | | | | sodium | | - [facility] | | | | | measurement | | [facility] | | | | | (moles/volum | | Hospital | | | | | e) | | | | | | + + + +-------+ + + + + | Result panel 113 | + + + + + +-------+ + + | Serum or | 2025-06-30 | | 3.9 | (missing) | (missing) | | plasma | 23:48 | [facility] | | | | | potassium | | - [facility] | | | | | measurement | | [facility] | | | | | (moles/volum | | Hospital | | | | | e) | | | | | | + + + +-------+ + + + + | Result panel 114 | + + + + + +------+ + + | Serum or | 2025-06-30 | | 91 | (missing) | (missing) | | plasma | 23:48 | [facility] | | | | | chloride | | - [facility] | | | | | measurement | | [facility] | | | | | (moles/volum | | Hospital | | | | | e) | | | | | | + + + +------+ + + + + | Result panel 115 | + + + + + +------+ + + | Serum or | 2025-06-30 | | 22 | (missing) | (missing) | | plasma | 23:48 | [facility] | | | | | carbon | | - [facility] | | | | | dioxide, | | [facility] | | | | | total | | Hospital | | | | | measurement | | | | | | | (moles/volum | | | | | | | e) | | | | | | + + + +------+ + + + + | Result panel 116 | + + + + + +--------+ + + | Serum or | 2025-06-30 | | 12.9 | (missing) | (missing) | | plasma anion | 23:48 | [facility] | | | | | gap 4 | [facility] | | | | + + + +--------+ + + + + | Result panel 117 | + + + + + +-------+ + + | Serum or | 2025-06-30 | | 8.4 | (missing) | (missing) | | plasma | 23:48 | [facility] | | | | | calcium | [facility] measurement | | [facility] | | | | | (mass/volume | | [facility] | | | | | ) | | | | | | + + + +-------+ + + + + | Result panel 118 | + + + + + +--------+ + + | Blood | 2025-08-24 | | 8.63 | (missing) | (missing) | | leukocytes | 13:32 | [facility] | | | | | automated | [facility] count | | [facility] | | | | | (number/volu | | [facility] | | | | | me) | | | | | | + + + +--------+ + + + + | Result panel 119 | + + + + + +-------+ + + | Automated | 2025-08-24 | | 9.7 | (missing) | (missing) | | blood | 13:32 | [facility] | | | | | lymphocyte | [facility] count as | | [facility] | | | | | percentage | | [facility] | | | | | ot total | | | | | | | leukocytes | | | | | | + + + +-------+ + + + + | Result panel 120 | + + + + + +--------+ + + | Automated | 2025-08-24 | | 20.4 | (missing) | (missing) | | blood | 13:32 | [facility] | | | | | monocyte | [facility] count as | | [facility] | | | | | percentage | | [facility] | | | | | of total | | | | | | | leukocytes | | | | | | + + + +--------+ + + + + | Result panel 121 | + + + + + +-------+ + + | Automated | 2025-08-24 | | 1.4 | (missing) | (missing) | | blood | 13:32 | [facility] | | | | | eosinophil | [facility] count as | | [facility] | | | | | percentage | | [facility] | | | | | of total | | | | | | | leukocytes | | | | | | + + + +-------+ + + + + | Result panel 122 | + + + + + +-------+ + + | Automated | 2025-08-24 | | 0.5 | (missing) | (missing) | | blood | 13:32 | [facility] | | | | | basophil | | - [facility] | | | | | count as | | [facility] | | | | | percentage | | [facility] | | | | | of total | | | | | | | leukocytes | | | | | | + + + +-------+ + + + + | Result panel 123 | + + + + + +-------+ + + | Serum or | 2025-08-24 | | 126 | (missing) | (missing) | | plasma | 13:32 | [facility] | | | | | glucose | [facility] - [facility] | | [facility] | measurement | | [facility] | | | | | (mass/volume | | [facility] | | | | | ) | | | | | | + + + +-------+ + + + + | Result panel 124 | + + + + + +------+ + + | Serum or | 2025-08-24 | | 27 | (missing) | (missing) | | plasma urea | 13:32 | [facility] | | | | | nitrogen | | - [facility] | | | | | measurement | | [facility] | | | | | (mass/volume | | Hospital | | | | | ) | | | | | | + + + +------+ + + + + | Result panel 125 | + + + + + +--------+ + + | Serum or | 2025-08-24 | | 1.55 | (missing) | (missing) | | plasma | 13:32 | [facility] | | | | | creatinine | | - [facility] | | | | | measurement | | [facility] | | | | | (mass/volume | | [facility] | | | | | ) | | | | | | + + + +--------+ + + + + | Result panel 126 | + + + + + +------+ + + | Glomerular | 2025-08-24 | | 43 | (missing) | (missing) | | filtration | 13:32 | [facility] | | | | | rate/1.73 sq | | - [facility] | | | | | M.predicted | | [facility] | | | | | [Volume | | Hospital | | | | | Rate/Area] | | | | | | | inSerum, | | | | | | | Plasma or | | | | | | | Blood by | | | | | | | Creatinine-b | | | | | | | ased formula | | | | | | | (CKD-EPI | | | | | | | 2020) | | | | | | + + + +------+ + + + + | Result panel 127 | + + + + + +---------+ + + | Serum or | 2025-08-24 | | 17.41 | (missing) | (missing) | | plasma urea | 13:32 | [facility] | | | | | nitrogen/cre | | - [facility] | | | | | atinine mass | | [facility] | | | | | ratio | | [facility] | | | | + + + +---------+ + + + + | Result panel 128 | + + + + + +-------+ + + | Serum or | 2025-08-24 | | 131 | (missing) | (missing) | | plasma | 13:32 | [facility] | | | | | sodium | | - [facility] | | | | | measurement | | [facility] | | | | | (moles/volum | | Hospital | | | | | e) | | | | | | + + + +-------+ + + + + | Result panel 129 | + + + + + +--------+ + + | Blood | 2025-08-24 | | 3.93 | (missing) | (missing) | | erythrocytes | 13:32 | [facility] | | | | | automated | | - [facility] | | [facility] | | count | | [facility] | | | | | (number/volu | | Hospital | | | | | me) | | | | | | + + + +--------+ + + + + | Result panel 130 | + + + + + +-------+ + + | Serum or | 2025-08-24 | | 2.9 | (missing) | (missing) | | plasma | 13:32 | [facility] | | | | | potassium | | - [facility] | | | | | measurement | | [facility] | | | | | (moles/volum | | Hospital | | | | | e) | | | | | | + + + +-------+ + + + + | Result panel 131 | + + + + + +------+ + + | Serum or | 2025-08-24 | | 98 | (missing) | (missing) | | plasma | 13:32 | [facility] | | | | | chloride | | - | | | | | measurement | | [facility] | | | | | (moles/volum | | Hospital | | | | | e) | | | | | | + + + +------+ + + + + | Result panel 132 | + + + + + +------+ + + | Serum or | 2025-08-24 | | 23 | (missing) | (missing) | | plasma | 13:32 | [facility] | | | | | carbon | | - [facility] | | | | | dioxide, | | [facility] | | | | | total | | [facility] | | | | | measurement | | | | | | | (moles/volum | | | | | | | e) | | | | | | + + + +------+ + + + + | Result panel 133 | + + + + + +--------+ + + | Serum or | 2025-08-24 | | 12.9 | (missing) | (missing) | | plasma anion | 13:32 | [facility] | | | | | gap 4 | | - [facility] | | | | | [facility] | | [facility] | | | | + + + +--------+ + + + + | Result panel 134 | + + + + + +-------+ + + | Serum or | 2025-08-24 | | 8.3 | (missing) | (missing) | | plasma | 13:32 | [facility] | | | | | calcium | | - [facility] | | [facility] | | measurement | | [facility] | | | | | (mass/volume | | Hospital | | | | | ) | | | | | | + + + +-------+ + + + + | Result panel 135 | + + + + + +-------+ + + | Serum or | 2025-08-24 | | 1.9 | (missing) | (missing) | | plasma | 13:32 | [facility] | | | | | magnesium | | - [facility] | | [facility] | | measurement | | [facility] | | | | | (mass/volume | | Hospital | | | | | ) | | | | | | + + + +-------+ + + + + | Result panel 136 | + + + + + +-------+ + + | Serum or | 2025-08-24 | | 6.0 | (missing) | (missing) | | plasma | 13:32 | [facility] | | | | | protein | | - [facility] | | [facility] | measurement | | [facility] | | | | | (mass/volume | | Hospital | | | | | ) | | | | | | + + + +-------+ + + + + | Result panel 137 | + + + + + +-------+ + + | Serum or | 2025-08-24 | | 2.6 | (missing) | (missing) | | plasma | 13:32 | [facility] | | | | | albumin | | - [facility] | | [facility] | | measurement | | [facility] | | | | | (mass/volume | | Hospital | | | | | ) | | | | | | + + + +-------+ + + + + | Result panel 138 | + + + + + +-------+ + + | Serum | 2025-08-24 | | 3.4 | (missing) | (missing) | | globulin | 13:32 | [facility] | | | | | measurement | | - [facility] | [facility] | | (mass/volume | | [facility] | | | | ) | | [facility] | | | | + + + +-------+ + + + + | Result panel 139 | + + + + + +--------+ + + | Serum or | 2025-08-24 | | 0.76 | (missing) | (missing) | | plasma | 13:32 | [facility] | | | | | albumin/glob | | - [facility] | | | | ulin mass | | [facility] | | | | | ratio | | [facility] | | | | + + + +--------+ + + + + | Result panel 140 | + + + + + +--------+ + + | Blood | 2025-08-24 | | 12.3 | (missing) | (missing) | | hemoglobin | 13:32 | [facility] | | | | | measurement | | - [facility] | [facility] | | (mass/volume | | [facility] | | | | ) | | [facility] | | | | + + + +--------+ + + + + | Result panel 141 | + + + + + +-------+ + + | Serum or | 2025-08-24 | | 0.5 | (missing) | (missing) | | plasma total | 13:32 | [facility] | | | | | bilirubin | | - [facility] | measurement | | [facility] | | | | | (mass/volume | | [facility] | | | | | ) | | | | | | + + + +-------+ + + + + | Result panel 142 | + + + + + +------+ + + | Serum or | 2025-08-24 | | 16 | (missing) | (missing) | | plasma | 13:32 | [facility] | | | | | aspartate | | - [facility] | | | | | aminotransfe | | [facility] | | | | | rase | | Hospital | | | | | measurement | | | | | | | (enzymatic | | | | | | | activity/vol | | | | | | | ume) | | | | | | + + + +------+ + + + + | Result panel 143 | + + + + + +------+ + + | Serum or | 2025-08-24 | | 20 | (missing) | (missing) | | plasma | 13:32 | [facility] | | | | | alanine | | - [facility] | | | | | aminotransfe | | [facility] | | | | | rase | | Hospital | | | | | measurement | | | | | | | (enzymatic | | | | | | | activity/vol | | | | | | | ume) | | | | | | + + + +------+ + + + + | Result panel 144 | + + + + + +------+ + + | Serum or | 2025-08-24 | | 85 | (missing) | (missing) | | plasma | 13:32 | [facility] | | | | | alkaline | | - [facility] | | | | | phosphatase | | [facility] | | | | | measurement | | [facility] | | | | | (enzymatic | | | | | | | activity/vol | | | | | | | ume) | | | | | | + + + +------+ + + + + | Result panel 145 | + + + + + +--------+ + + | Automated | 2025-08-24 | | 35.5 | (missing) | (missing) | | blood | 13:32 | [facility] | | | | | hematocrit | | - [facility] | | [facility] | [facility] | | | | + + + +--------+ + + + + | Result panel 146 | + + + + + +--------+ + + | Automated | 2025-08-24 | | 90.3 | (missing) | (missing) | | erythrocyte | 13:32 | [facility] | | | | | mean | | - [facility] | | | | | corpuscular | | [facility] | | | | | volume | | [facility] | | | | + + + +--------+ + + + + | Result panel 147 | + + + + + +--------+ + + | Automated | 2025-08-24 | | 31.3 | (missing) | (missing) | | erythrocyte | 13:32 | [facility] | | | | | mean | | - [facility] | | | | | corpuscular | | [facility] | | | | | hemoglobin | | [facility] | | | | | (mass per | | | | | | | erythrocyte) | | | | | | | | | | | | | + + + +--------+ + + + + | Result panel 148 | + + + + + +--------+ + + | Automated | 2025-08-24 | | 34.6 | (missing) | (missing) | | erythrocyte | 13:32 | [facility] | | | | | mean | | - [facility] | | | | | corpuscular | | [facility] | | | | | hemoglobin | | Hospital | | | | | concentratio | | | | | | | n | | | | | | | measurement | | | | | | | (mass/volume | | | | | | | ) | | | | | | + + + +--------+ + + + + | Result panel 149 | + + + + + +-------+ + + | Automated | 2025-08-24 | | 213 | (missing) | (missing) | | blood | 13:32 | [facility] | | | | | platelet | | [facility] | count | | [facility] | | | | | (count/volum | | Hospital | | | | | e) | | | | | | + + + +-------+ + + + + | Result panel 150 | + + + + + +--------+ + + | Automated | 2025-08-24 | | 67.2 | (missing) | (missing) | | blood | 13:32 | [facility] | | | | | neutrophil | | [facility] | | [facility] | | count as | | [facility] | | | | | percentage | | [facility] | | | | | of total | | | | | | | leukocytes | | | | | | + + + +--------+ + + + + | Result panel 151 | + + + + + +--------+ + + | WBC # Bld | 2025-08-24 | | 8.63 | (missing) | (missing) | | Auto | 13:32:07 | [facility] | | [facility] | | | | + + + +--------+ + + + + | Result panel 152 | + + + + + +--------+ + + | RBC # Bld | 2025-08-24 | | 3.93 | (missing) | (missing) | | Auto | 13:32:07 | [facility] | | | | | | [facility] | | | | + + + +--------+ + + + + | Result panel 153 | + + + + + +--------+ + + | Hgb | 2025-08-24 | | 12.3 | (missing) | (missing) | | Bld-mCnc | 13:32:07 | [facility] | | | | + + + +--------+ + + + + | Result panel 154 | + + + + + +--------+ + + | Hct VFr.DF | 2025-08-24 | | 35.5 | (missing) | (missing) | | Bld Auto | 13:32:07 | [facility] | | [facility] | | | | + + + +--------+ + + + + | Result panel 155 | + + + + + +--------+ + + | RBC Auto | 2025-08-24 | | 90.3 | (missing) | (missing) | | | 13:32:07 | [facility] | | | | + + + +--------+ + + + + | Result panel 156 | + + + + + +--------+ + + | MCH RBC Qn | 2025-08-24 | | 31.3 | (missing) | (missing) | | Auto | 13:32:07 | [facility] | | | | + + + +--------+ + + + + | Result panel 157 | + + + + + +--------+ + + | MCHC RBC | 2025-08-24 | | 34.6 | (missing) | (missing) | | Auto-EntMCnc | 13:32:07 | [facility] | [facility] | | | | + + + +--------+ + + + + | Result panel 158 | + + + + + +-------+ + + | Platelet # | 2025-08-24 | | 213 | (missing) | (missing) | | Bld Auto | 13:32:07 | [facility] | | | | + + + +-------+ + + + + | Result panel 159 | + + + + + +--------+ + + | Neutrophils | 2025-08-24 | | 67.2 | (missing) | (missing) | | NFr Bld | 13:32:07 | [facility] | | | | | Auto | | [facility] | | | | + + + +--------+ + + + + | Result panel 160 | + + + + + +-------+ + + | Lymphocytes | 2025-08-24 | | 9.7 | (missing) | (missing) | | NFr Bld | 13:32:07 | [facility] | | | | | Auto | | [facility] | | | | + + + +-------+ + + + + | Result panel 161 | + + + + + +--------+ + + | Monocytes | 2025-08-24 | | 20.4 | (missing) | (missing) | | NFr Bld Auto | 13:32:07 | [facility] | | | [facility] | [facility] | | | | + + + +--------+ + + + + | Result panel 162 | + + + + + +-------+ + + | Eosinophil | 2025-08-24 | | 1.4 | (missing) | (missing) | | NFr Bld Auto | 13:32:07 | [facility] | | | | + + + +-------+ + + + + | Result panel 163 | + + + + + +-------+ + + | Basophils | 2025-08-24 | | 0.5 | (missing) | (missing) | | NFr Bld Auto | 13:32:07 | [facility] | | | | + + + +-------+ + + + + | Result panel 164 | + + + + + +-------+---------+ + | Glucose | 2025-08-24 | | 126 | mg/dL | (missing) | | [facility] | 13:32:07 | [facility] | [facility] | | | | + + + +-------+---------+ + + + | Result panel 165 | + + + + + +------+---------+ + | BUN | 2025-08-24 | | 27 | mg/dL | (missing) | | [facility] | 13:32:07 | [facility] | | | | [facility] | | | | + + + +------+---------+ + + + | Result panel 166 | + + + + + +--------+---------+ + | Creat | 2025-08-24 | | 1.55 | mg/dL | (missing) | | SerPl-mCnc | 13:32:07 | [facility] | | | | + + + +--------+---------+ + + + | Result panel 167 | + + + + + +------+ + + | eGFRcr | 2025-08-24 | | 43 | (missing) | (missing) | | SerPlBld | 13:32:07 | [facility] | | | | | CKD-EPI 2020 | [facility] | | | | + + + +------+ + + + + | Result panel 168 | + + + + + +---------+ + + | LINDA/Cole | 2025-08-24 | | 17.41 | (missing) | (missing) | | SerPl | 13:32:07 | [facility] - [facility] | | | | | [facility] | | | | + + + +---------+ + + + + | Result panel 169 | + + + + + +-------+ + + | Sodium | 2025-08-24 | | 131 | (missing) | (missing) | | SerPl-sCnc | 13:32:07 | [facility] | [facility] | | | | + + + +-------+ + + + + | Result panel 170 | + + + + + +-------+ + + | Potassium | 2025-08-24 | | 2.9 | (missing) | (missing) | | SerPl-sCnc | 13:32:07 | [facility] | | | | [facility] | | | | + + + +-------+ + + + + | Result panel 171 | + + + + + +------+ + + | Chloride | 2025-08-24 | | 98 | (missing) | (missing) | | SerPl-sCnc | 13:32:07 | [facility] | | | | | [facility] | | | | + + + +------+ + + + + | Result panel 172 | + + + + + +------+ + + | CO2 | 2025-08-24 | | 23 | (missing) | (missing) | | SerPl-sCnc | 13:32:07 | [facility] | | | | | | [facility] | | | | + + + +------+ + + + + | Result panel 173 | + + + + + +--------+ + + | Anion Gap | 2025-08-24 | | 12.9 | (missing) | (missing) | | SerPl | 13:32:07 | [facility] | | | | | Calculated.4 | | [facility] | [facility] | | | | + + + +--------+ + + + + | Result panel 174 | + + + + + +-------+---------+ + | Calcium | 2025-08-24 | | 8.3 | mg/dL | (missing) | | SerPl-mCnc | 13:32:07 | [facility] | | | | + + + +-------+---------+ + + + | Result panel 175 | + + + + + +-------+---------+ + | Magnesium | 2025-08-24 | | 1.9 | mg/dL | (missing) | | [facility] | 13:32:07 | [facility] | | [facility] | | | | + + + +-------+---------+ + + + | Result panel 176 | + + + + + +-------+ + + | Prot | 2025-08-24 | | 6.0 | (missing) | (missing) | | SerPl-Ekta | 13:32:07 | [facility] | | | | + + + +-------+ + + + + | Result panel 177 | + + + + + +-------+ + + | Albumin | 2025-08-24 | | 2.6 | (missing) | (missing) | | [facility] | 13:32:07 | [facility] | [facility] | | | | + + + +-------+ + + + + | Result panel 178 | + + + + + +-------+ + + | Globulin | 2025-08-24 | | 3.4 | (missing) | (missing) | | Ser-mCnc | 13:32:07 | [facility] | | | | + + + +-------+ + + + + | Result panel 179 | + + + + + +--------+ + + | | 2025-08-24 | | 0.76 | (missing) | (missing) | | Albumin/Glob | 13:32:07 | [facility] | | | | | SerPl | [facility] | | | | + + + +--------+ + + + + | Result panel 180 | + + + + + +-------+---------+ + | Bilirub | 2025-08-24 | | 0.5 | mg/dL | (missing) | | SerPl-mCnc | 13:32:07 | [facility] | | | | + + + +-------+---------+ + + + | Result panel 181 | + + + + + +------+ + + | AST | 2025-08-24 | | 16 | (missing) | (missing) | | SerPl-cCnc | 13:32:07 | [facility] | | | | + + + +------+ + + + + | Result panel 182 | + + + + + +------+ + + | ALT | 2025-08-24 | | 20 | (missing) | (missing) | | SerPl-cCn | 13:32:07 | [facility] | | | | + + + +------+ + + + + | Result panel 183 | + + + + + +------+ + + | ALP | 2025-08-24 | | 85 | (missing) | (missing) | | SerPl-cCnc | 13:32:07 | [facility] | | | | + + + +------+ + + Social History + + + + | date | description | facility | + + + + | (no date) | Never smoker | [facility] | | | | [facility] | + + + + Vital Signs + + + +---------+ | date | measurement | value | units | + + + +---------+ | 2025-08-24 00:00 | BMI | 26.0 | kg/m2 | + + + +---------+ | 2025-08-24 00:00 | BP_diastolic | 64 | mmHg | + + + +---------+ | 2025-08-24 00:00 | BP_systolic | 136 | mmHg | + + + +---------+ | 2025-08-24 00:00 | heart_rate | 84 | /min | + + + +---------+ | 2025-08-24 00:00 | height_metric | 172.72 | cm | + + + +---------+ | 2025-08-24 00:00 | height_standard | 68 | in | + + + +---------+ | 2025-08-24 00:00 | o2_saturation | 95 | % | + + + +---------+ | 2025-08-24 00:00 | respiration_rate | 16 | /min | + + + +---------+ | 2025-08-24 00:00 | | 98 | F | | | temperature_standar | | | | | d | | | + + + +---------+ | 2025-08-24 00:00 | weight_metric | 77.499 | kg | + + + +---------+ | 2025-08-24 00:00 | weight_standard | 170.856 | lb | + + + +---------+"
--- OUTSIDE RECORDS SUMMARY | ~2025-09-10 | XMS | Continuity of Care Document ---
Demographics + + + | Address | [address] | | | [place] [address] | + + + | Preferred Language | Unknown | + + + | Marital Status | | + + + | Samaritan Affiliation | Unknown | + + + | Race | White | + + + | Ethnic Group | Not or | + + + Author + + + | Author | [facility] | + + + | Organization | [facility] | + + + | Address | [address] | | | [place] [address] | + + + | Phone | | + + + Care Team Providers + + + + | Care Candy Counter Clerk Name | Role | Phone | + [...] (no date) | No vaccine administered | [facility] | | | | [facility] | + + + + Medications + + + + | date | description | facility | + + + + | (no date) | Turmeric extract 500 MG | [facility] | | | Oral Capsule | [facility] | + + + + | (no date) | Turmeric/Turmeric Root | [facility] | | | Extract | [facility] | + + + + | (no date) | CYANOCOBALAMIN (VITAMIN | [facility] | | | B-12) | [facility] | + + + + | (no date) | vitamin B12 2.5 MG Oral | [facility] | | | Tablet | [facility] | + + + + | (no date) | triamcinolone acetonide | [facility] | | | 0.055 MG/ACTUAT Metered | [facility] | | | Dose Nasal S | | + + + + | (no date) | ASPIRIN | [facility] | | | | [facility] | + + + + | (no date) | aspirin 325 MG Delayed | [facility] | | | Release Oral Tablet | [facility] | + + + + | (no date) | Cholecalciferol (Vitamin | [facility] | | | D3) | [facility] | + + + + | (no date) | cholecalciferol 0.025 MG | [facility] | | | Oral Tablet | [facility] | + + + + | 2025-08-24 00:00 | VANCOMYCIN HCL | [facility] | | | | [facility] | + + + + | 2025-08-24 00:00 | vancomycin 125 MG Oral | [facility] | | | Capsule [Vancocin] | [facility] | + + + + | (no date) | sertraline 100 MG Oral | [facility] | | | Tablet [Zoloft] | [facility] | + + + + | (no date) | NIACIN | [facility] | | | | [facility] | + + + + | (no date) | niacin 500 MG Extended | [facility] | | | Release Oral Tablet | [facility] | | | [Slo-Niacin] | | + + + + | (no date) | FINASTERIDE | [facility] | | | | [facility] | + + + + | (no date) | finasteride 5 MG Oral | [facility] | | | Tablet | [facility] | + + + + | 2025-08-24 00:00 | ONDANSETRON | [facility] | | | | [facility] | + + + + | 2025-08-24 00:00 | ondansetron 8 MG | [facility] | | | Disintegrating Oral Tablet | [facility] | + + + + | 2025-08-24 00:00 | POTASSIUM CHLORIDE | [facility] | | | | [facility] | + + + + | 2025-08-24 00:00 | potassium chloride 10 MEQ | [facility] | | | Extended Release Oral | [facility] | | | Capsule | | + + + + | (no date) | SIMVASTATIN | [facility] | | | | [facility] | + + + + | (no date) | simvastatin 5 MG Oral | [facility] | | | Tablet | [facility] | + + + + | (no date) | TERAZOSIN HCL | [facility] | | | | [facility] | + + + + | (no date) | terazosin 5 MG Oral | [facility] | | | Capsule | [facility] | + + + + | (no date) | VENLAFAXINE HCL | [facility] | | | | [facility] | + + + + | (no date) | venlafaxine 75 MG Oral | [facility] | | | Tablet | [facility] | + + + + | (no date) | LATANOPROST | [facility] | | | | [facility] | + + + + | (no date) | latanoprost 0.05 MG/ML | [facility] | | | Ophthalmic Solution | [facility] | + + + + | (no date) | Olmesartan Medoxomil | [facility] | | | | [facility] | + + + + | (no date) | olmesartan medoxomil 40 MG | [facility] | | | Oral Tablet | [facility] | + + + + | (no date) | olmesartan medoxomil 20 MG | [facility] | | | Oral Tablet [Benicar] | [facility] | + + + + | (no ) | OLMESARTAN MEDOXOMIL | [facility] | | | | [facility] | + + + + | (no ) | olmesartan medoxomil 40 MG | [facility] | | | Oral Tablet [Benicar] | [facility] | + + + + | (no ) | naproxen sodium 220 MG | [facility] | | | Oral Tablet [Aleve] | [facility] | + + + + | (no date) | TAMSULOSIN HCL | [facility] | | | | [facility] | + + + + | (no date) | tamsulosin hydrochloride | [facility] | | | 0.4 MG Oral Capsule | [facility] | + + + + | (no date) | TAMSULOSIN HCL | [facility] | | | | [facility] | + + + + | (no date) | tamsulosin hydrochloride | [facility] | | | 0.4 MG Oral Capsule | [facility] | | | [Flomax] | | + + + + Problems + + + + | date | description | facility | + + + + | 2025-06-26 00:00 | Elevated troponin | [facility] | | | | [facility] | + + + + | 2025-06-26 00:00 | Hydrocele in adult | [facility] | | | | [facility] | + + + + | 2025-06-26 00:00 | Malaise | [facility] | | | | [facility] | + + + + | 2025-06-26 00:00 | Elevated troponin level | [facility] | | | | [facility] | + + + + | 2025-06-30 00:00 | Weakness | [facility] | | | | [facility] | + + + + | 2025-07-01 00:00 | Liver abscess | [facility] | | | | [facility] | + + + + | 2025-07-01 00:00 | Hyponatremia | [facility] | | | | [facility] | + + + + | 2025-07-01 00:00 | Abscess of liver | [facility] | | | | [facility] | + + + + | 2025-08-24 00:00 | C. difficile colitis | [facility] | | | | [facility] | + + + + | 2025-08-24 [...] 2.6 | (missing) | (missing) | | [facility] | 13:32:07 | [facility] | | | [...] | (no date) | Never smoker | [facility] | | | | [facility] | + + + + Vital [...]
[~2025-09-10 13:35] MED LIST changes: +ONDANSETRON ODT8 MG PO; +POTASSIUM CHLO10 MEQ PO; +VANCOCIN HCL125 MG PO
--- OUTSIDE RECORDS SUMMARY | 2025-09-10 13:42 | XMS ---
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 Shauna has no Care Guidelines for this patient. Hayde VISIT COUNT (12 MO.) 4 [facility] [place] [facility]. TOTAL 4 NOTE: Visits indicate total known visits. ED/C VISIT TRACKING (12 MO.) 09/10/2025 13:35 [facility] [place] TYPE[facility] Emergency COMPLAINT: - DIARRHEA 08/24/2025 14:46 [facility] [place] TYPE: Emergency COMPLAINT: - DIARRHEA DIAGNOSES: - Allergy status to other drugs, medicaments and biological substances - Diarrhea, unspecified - Enterocolitis due to Clostridium difficile, not specified as recurrent - Essential (primary) hypertension - Hypokalemia - Other [facility] (current) drug therapy 06/30/2025 16:25 [facility] [place] [facility] [place] TYPE: Emergency COMPLAINT: - WEAKNESS DIAGNOSES: - Abscess of liver - Allergy status to other drugs, medicaments and biological substances - Essential (primary) hypertension - Hypo-osmolality and hyponatremia - Other [facility] (current) drug therapy - Shortness of breath - Weakness 06/26/2025 16:36 [facility] [place] TYPE: Emergency COMPLAINT: - SOB, DIZZY DIAGNOSES: - Allergy status to other drugs, medicaments and biological substances - Essential (primary) hypertension - Hydrocele, unspecified - Other [facility] (current) drug therapy - Other malaise - Other specified abnormal findings of blood chemistry INPATIENT VISIT TRACKING (12 MO.) 07/01/2025 05:33 [facility] [place] TYPE: [facility] DIAGNOSES: - Abscess of liver - Anxiety disorder, unspecified - Essential (primary) hypertension - Unspecified diastolic (congestive) heart failure - Liver abscess [email or web address]
[2025-09-10 14:31] LABS: BASOPHILS 0.2 % (0.2-1.2); EOSINOPHILS 0.4 % (0.8-7.0); LYMPHOCYTES 3.2 % (21.8-53.1); MCH 31.1 PG (25.7-32.2); MCHC 33.6 g/dL (32.3-36.5); MCV 92.6 fL (79.0-92.2); MONOCYTES 5.8 % (5.3-12.2); NEUTROPHILS 89.9 % (34.0-67.9); RBC 4.57 M/uL (4.63-6.08)
[2025-09-10 14:53] LABS: ALT (SGPT) 24.0 U/L (14-59); AST (SGOT) 18.0 U/L (15-37); GLOMERULAR FILTRATION RATE,EST 41.0 mL/min (>60); PROTEIN, TOTAL 6.7 g/dL (6.4-8.2); UREA NITROGEN 31.0 mg/dL (7-18)
[2025-09-10] MEDS ORDERED: SODIUM CHLORIDE 0.9% 1,000 ML IV PRN (15:45)
[2025-09-10 18:23] LABS: BLOOD/HGB, URINE TRACE-I (Negative); KETONE, URINE NEGATIVE (Negative); LEUK ESTERASE, URINE NEGATIVE (negative); NITRITE, URINE NEGATIVE (negative)
[2025-09-10 18:32] LABS: CRYSTALS, URINE CALCIUM OXALATE 2+ (0-1+); EPITHELIAL CELLS, URINE SQUAMOUS 1+ /lpf (0-1+)
[2025-09-10 18:33] LABS: BACTERIA, URINE NONE SEEN /hpf (negative); CASTS, URINE NONE SEEN \\lpf; REFLEX CULTURE, URINE No (No)
[2025-09-10] MEDS ORDERED: VANCOMYCIN HCL 125 MG CAP PO SCH (21:00)
[2025-09-10 21:19] VITALS: BP 110/47
[2025-09-10] MEDS ORDERED: MIRTAZAPINE 15 MG TAB PO SCH (21:26)
--- NOTE | 2025-09-10 21:29 | NUR ---
REPORT RECEIVED FROM DWIGHT WILLIAMSON. pt IN RESTROOM HAVING BM AT THIS TIME. USES CALL LIGHT, BACK IN BED. CONCERNED WITH PRN ANXIETY AND SLEEP MEDICATIONS. PHONE CALL TO TO FIND OUT WHAT MEDICATIONS HE TOOK AT [facility]. PHONED, NEW ORDERS RECEIVED AND REPEATED BACK TO VERIFY. NOTIFIED OF ELEVATED LACTIC, KIDNEY FUNCTION LABS, ORDERS RECEIVED FOR IVF. REPEATED BACK TO VERIFY AND UPDATED EMAR.
[2025-09-10] MEDS ORDERED: LACTATED RINGER'S 1,000 ML IV SCH (21:30)
--- NOTE | 2025-09-10 22:04 | NUR ---
PHONE CALL FROM LAB, NOTIFIED CRITICAL LACTIC ACID 2.8. ATTEMPT TO CALL MD, NO ANSWER.
[2025-09-10 22:14] VITALS: BP 110/56
--- NOTE | 2025-09-10 22:28 | NUR ---
PHONE CALL TO MD, NOTIFIED OF CRITICAL LACTIC ACID, VS. NEW ORDER RECEIVED FOR IVF BOLUS, ORDER TO INCREASE IVF AND REPEAT LACTIC ACID WITH MORNING LABS. ORDERS REPEATED BACK TO VERIFY.
[2025-09-10] MEDS ORDERED: LACTATED RINGER'S 1,000 ML IV ONE (22:30)
--- NOTE | 2025-09-10 23:08 | NUR ---
pt ASSESSMENT COMPLETE. IVF BOLUS INFUSING WNL. pt DENIES PAIN, DENIES NAUSEA. EDUCATION PROVIDED ON MEDICATIONS, PLAN OF CARE. SCHEDULED AND PRN MEDICATIONS ADMINISTERED. ICE WATER REFILLED AND IN REACH. pt INSTRUCTED TO USE CALL LIGHT BEFORE OUT OF BED. VERBALIZES UNDERSTANDING. SKIN TEAR ON RIGHT ARM CLEANSED WITH WOUND CLEANSER, BACITRACIN APPLIED AND ALLEVYN IN PLACE. PICTURE AND CONSENT IN CHART. CALL LIGHT IN REACH. LIGHTS OFF IN ROOM. DOOR OPEN PER REQUEST.
[2025-09-11] VITALS (11 sets, daily range): BP systolic 116–159; BP diastolic 55–87
--- NOTE | 2025-09-11 01:15 | NUR ---
CHECKED ON pt. RESTING IN BED, EYES CLOSED, BREATHING UNLABORED. IVF INFUSING PER ORDERS.
--- NOTE | 2025-09-11 02:03 | NUR ---
pt SLEEPING, AWAKENS TO VOICE. VSS. IV SITE ASSESSED, IVF INFUSING WNL. DENIES TOILETING NEEDS. CALL LIGHT IN REACH. pt CLOSES EYES RN EXITS ROOM.
--- NOTE | 2025-09-11 03:34 | NUR ---
ROUNDED ON pt, RESTING IN BED WITH EYES CLOSED, BREATHING UNLABORED. BED ALARM IS SET.
--- NOTE | 2025-09-11 04:15 | NUR ---
CALL LIGHT ANSWERED. SBA W FWW TO RESTROOM FOR VOID AND LIQUID BM. BACK TO BED IVF INFUSING WNL. NO REQUESTS AT THIS TIME. CALL LIGHT IN REACH.
[2025-09-11 05:26] LABS: BASOPHILS 0.3 % (0.2-1.2); EOSINOPHILS 0.4 % (0.8-7.0); LYMPHOCYTES 13.3 % (21.8-53.1); MCH 31.6 PG (25.7-32.2); MCHC 34.2 g/dL (32.3-36.5); MCV 92.5 fL (79.0-92.2); MONOCYTES 5.6 % (5.3-12.2); NEUTROPHILS 80.3 % (34.0-67.9); RBC 3.48 M/uL (4.63-6.08)
[2025-09-11 05:44] LABS: ALT (SGPT) 16.0 U/L (14-59); AST (SGOT) 15.0 U/L (15-37); GLOMERULAR FILTRATION RATE,EST 57.0 mL/min (>60); PROTEIN, TOTAL 5.0 g/dL (6.4-8.2); UREA NITROGEN 24.0 mg/dL (7-18)
[2025-09-11] MEDS ORDERED: POTASSIUM CHLORIDE 10 MEQ TABCR PO ONE (08:30)
--- NOTE | 2025-09-11 10:46 | NUR ---
IN BED WATCHING TV, USED CALL LIGHT, UP AND DOWN TO BSC. 1PA/FWW, CONTINUES ON CONTCT ISOLATION PRECAUTIONS
[2025-09-11] MEDS ORDERED: VENLAFAXINE HCL 75 MG CAPCR PO SCH (12:13)
[2025-09-11] MEDS ORDERED: TAMSULOSIN HCL 0.4 MG CAP PO SCH (12:13)
[2025-09-11] MEDS ORDERED: FINASTERIDE 5 MG TAB PO SCH (12:13)
[2025-09-11] MEDS ORDERED: ACETAMINOPHEN 325 MG TAB PO PRN (12:15)
[2025-09-11] MEDS ORDERED: VANCOMYCIN HCL 125 MG CAP PO SCH (13:00)
--- NOTE | 2025-09-11 13:37 | NUR ---
UP TO BSC, SEMIDEPENDENT, CONTINUES TO HAVE LIQUID GREEN COLORED STOOLS, DOES OWN CARE. IVF INFUSING W/O PROBLEMS ON ROOM AIR, 1PA/FWW
--- NOTE | 2025-09-11 13:39 | NUR ---
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
--- NOTE | 2025-09-11 14:05 | NUR ---
ALERT AND ORIENTED. STATES HE LIVES IN HOUSE WITH . HAS DME AT HOME. WALKER, CANE, WALKING STICKS, SHOWER CHAIR, GRAB BARS. STATES HE DRIVES AT [place]. HAS NO FINANCIAL CONCERNS. ABLE TO PAY UTILITES, FOOD AND MEDICATIONS WITHOUT DIFFICULTY. STATES HE PLANS TO RETURN TO HOME WHEN MEDICALLY READY. RECENT STAY IN [place] FOR 13 DAYS, STATES HE GOT "PRETTY WELL SET UP," PRIOR TO HIS DC FROM THERE. NO CURRENT CM NEEDS.
--- NOTE | 2025-09-11 15:05 | NUR ---
RESTING, EYES CLOSED, NO S/SX DISTRESS, CONTINUES ON CONTACT ENTERIC PRECAUTIONS
[2025-09-11] MEDS ORDERED: FUROSEMIDE20 MG PO (17:19)
[2025-09-11] MEDS ORDERED: MIRTAZAPINE7.5 MG PO (17:20)
[2025-09-11] MEDS ORDERED: HYDROXYZINE HCL10 MG PO (17:21)
--- NOTE | 2025-09-11 17:25 | NUR ---
medications reconciled
--- NOTE | 2025-09-11 18:12 | NUR ---
awake, watching tv, no further c/o pain, Up to BSc several times, having loose stools, IVF infusing w/o problems, 1PA?FWW, was visiting with family earlier. no c/o pain. Coffee given on request
--- NOTE | 2025-09-11 19:20 | NUR ---
RECEIVED REPORT FROM DWIGHT RUIZ. PATIENT LAYING ON BACK IN BED RESTING WITH EYES CLOSED BUT EASILY WOKEN WITH OPENING OF DOOR. PATIENT ALERT AND ABLE TO COMMUNICATE EFFECTIVELY. IVF RUNNING WITHOUT DIFFICUTLY. NO NEEDS IDENTIFIED AT THIS TIME. CALL LIGHT AND BELONGINGS WITHIN REACH.
[2025-09-11] MEDS ORDERED: MELATONIN 3 MG TAB PO PRN (21:00)
--- NOTE | 2025-09-11 21:04 | NUR ---
SCEHDULED MEDICATIONS GIVEN PER ORDERS. PATIENT LAYING IN BED, HOB ELEVATED, AWAKE AND ALERT. ASSESSMENT COMPLETED. PATIENT DENIES PAIN AT THIS TIME. IVF INFUSING WITHOUT DIFFICULTY. PATIENT RESPOSITIONED. RESPIRATORY SUPERVISOR GIVEN FRESH ICE WATER AND SODA. BSC AT SIDE OF BED, BED ALARM SET, PATIENT EDUCATED ON USE OF CALL LIGHT BEFORE EXITING BED, PATIENT CONFIRMS UNDERSTANDING. CALL LIGHT AND BELONGINGS IN REACH.
--- NOTE | 2025-09-11 22:05 | NUR ---
PATIENT LAYING IN BED ON BACK WITH HOB ELEVATED SLIGHTLY. AWAKE AND ALERT WATCHING TV. DENIES NEEDS AT THIS TIME. IVF INFSUING WITHOUT DIFFICULTY. CALL LIGHT IN REACH.
[2025-09-12] VITALS (11 sets, daily range): BP systolic 125–173; BP diastolic 65–85
--- NOTE | 2025-09-12 | NUR ---
ROUNDED ON PATIENT, RESTING WITH EYES CLOSED LAYING ON BACK, HOB SLIGHTLY ELEVATED, RESPIRATIONS EVEN AND UNLABORED. IVF INFUSING WITHOUT DIFFICULTY. NO NEEDS IDENTIFIED AT THIS TIME. CALL LIGHT IN REACH.
--- NOTE | 2025-09-12 00:51 | NUR ---
NEW IVF BAG HUNG AND INFUSING PER ORDER. PATIENT RESTING WITH EYES CLOSED, RESPIRATION EVEN AND UNLABROED. NO NEEDS IDENTIFIED AT THIS TIME. CALL LIGHT IN REACH.
--- NOTE | 2025-09-12 01:19 | NUR ---
CHEMICAL LABORATORY TESTER OBTAINED VITALS AND I&O. PT STATES NO NEEDS AT THIS TIME. CALL LIGHT WITHIN REACH AND BED ALARM ON.
--- NOTE | 2025-09-12 01:35 | NUR ---
BED ALARM ANSWERED. PT NEEDED TO USE BATHROOM. [employer] R INSTRUCTOR SBA WITH FWW TO BATHROOM. PT VOIDED AND HAD SMALL BM. PT ASSISTED TO SINK AND WASHED HANDS. PT THEN ASSISTED TO BED. WARM BLANKET GIVEN UPON REQUEST. PT STATES NO FURTHER NEEDS AT THIS TIME. CALL LIGHT WITHIN REACH AND BED ALARM ON.
--- NOTE | 2025-09-12 03:02 | NUR ---
ROUNDED ON PATIENT, PATIENT RESTING WITH EYES CLOSED, RESPIATIONS EVEN AND UNLABORED, NO NEEDS IDENTIFIED, CALL LIGHT IN REACH
--- NOTE | 2025-09-12 05:33 | NUR ---
HEALTH AND SAFETY DIRECTOR IN ROOM OBTAINING VITALS AND I&O'S. ASSESSMENT COMPLETED BY THIS RN. IVF INFUSING WITHOUT DIFFICULTY. BED ALARM SET, PATIENT DENIES NEEDS AT THIS TIME. CALL LIGHT IN REACH.
--- NOTE | 2025-09-12 05:35 | NUR ---
PATIENT STATES LESS TENDERNESS IN ABD, SOMETIMES A "SHARP PAIN" IN THE LLQ HOWEVER JUST "UCOMFORTABLE". PATIENT DENIES PAIN AT THIS TIME. RESTING IN BED. TREATMENT PLANT OPERATOR AT BEDSIDE FOR ASSISTANCE TO RESTROOM. NO OTHER NEEDS AT THIS TIME. CALL LIGHT IN REACH.
--- NOTE | 2025-09-12 05:43 | NUR ---
OPTICAL EFFECTS LAYOUT PERSON OBTAINED VITALS AND I&O. PT UP TO BATHROOM SBA AND ASSISTED BACK TO BED. NO FURTHER NEEDS STATED AT THIS TIME. CALL LIGHT WITHIN REACH AND BED ALARM ON.
[2025-09-12 06:08] LABS: BASOPHILS 0.8 % (0.2-1.2); EOSINOPHILS 3.5 % (0.8-7.0); LYMPHOCYTES 33.5 % (21.8-53.1); MCH 31.3 PG (25.7-32.2); MCHC 33.6 g/dL (32.3-36.5); MCV 93.2 fL (79.0-92.2); MONOCYTES 12.0 % (5.3-12.2); NEUTROPHILS 49.9 % (34.0-67.9); RBC 3.96 M/uL (4.63-6.08)
[2025-09-12 06:19] LABS: GLOMERULAR FILTRATION RATE,EST 76.0 mL/min (>60); UREA NITROGEN 14.0 mg/dL (7-18)
--- NOTE | 2025-09-12 07:26 | NUR ---
Resting, eyes closed, on room air, no s/sx distress. IVF infusing w/o problems. Continues on Contact enteric isolation precautions
--- NOTE | 2025-09-12 08:54 | NUR ---
PATIENT IN BED AT THIS TIME. THIS LIGHT COIL WINDER ASSISTED PATIENT TO BATHROOM AND THEN BACK TO BED. CALL LIGHT WITHIN REACH, NO FURTHER NEEDS.
[2025-09-12] MEDS ORDERED: FLU (Fluad) 2025-26 (65UP)/MF59C/PF 45 MCG/0.5 ML IM ONE (09:00)
--- NOTE | 2025-09-12 09:15 | NUR ---
awake, watching tv, ate 75% meals. cooperative with vitals and assessments. no c/o pain
--- NOTE | 2025-09-12 10:33 | NUR ---
INTO SEE PATIENT. PATIENT HAS NO CM NEEDS. WILL GO HOME WITH WHEN MEDICALLY CLEARED FOR D/C.
--- NOTE | 2025-09-12 11:55 | NUR ---
RESTING, EYES CLOSED, ON ROOM AIR, IVF INFUSING W/O PROBLEMS, CONTINUES ON CONTACT ENTERIC ISOLATION PRECAUTIONS
[2025-09-12] MEDS ORDERED: PHARMACY RENAL DOSE ADJUSTMENT 1 DOSE MISC PO SCH (12:00)
--- NOTE | 2025-09-12 12:52 | NUR ---
ALERT AND ORIENTED, ROOM AIR, CONTINUES ON CONTACT ISOLATION PRECAUTIONS. UP TO BRP 1PA/FWW VOIDED AND CONTINUES TO HAVE SEMI LIQUID BM'S. BACK TO BED. DID OWN ORAL CARE TOO. TOLERATED WELL. IVF INFUSING W/O PROBLEMS
--- NOTE | 2025-09-12 15:11 | NUR ---
Resting, eyes closed, no s/x distress. IVF infusing w/o problems. on enteric isolation precautions
--- NOTE | 2025-09-12 15:47 | NUR ---
PATIENT IN BED AT THIS TIME. MEMBER OF PARLIAMENT ASSISTED PATIENT TO BATHROOM AND THEN BACK TO BED. CALL LIGHT WITHIN REACH, NO FURTHER NEEDS.
--- NOTE | 2025-09-12 17:33 | NUR ---
PATIENT IN BED AT THIS TIME. DRAINLAYER CHARTED VITALS AMD I&O'S. CALL LIGHT WITHIN REACH, NO FURTHER NEEDS.
--- NOTE | 2025-09-12 18:02 | NUR ---
Awake, watching tv, no c/o pain, on room air. Continues to have semiliquid stools green colored. voiding unmeasured urine. declines to use urinl. 1PA/FWW tolerating well, IVF infusing w/o problems. states "he feels better and may go home tomorrow". Continues on enteric isolation precautions. Worked with PT and walked to lower hallways with PT. tolerated very well. Visisited with .
[2025-09-12] MEDS ORDERED: LACTOBACILLUS RHAMNOSUS GG 1 EACH CAP PO SCH (18:59)
--- NOTE | 2025-09-12 19:05 | NUR ---
RECEIVED REPORT FROM DWIGHT RUIZ. PATIENT LAYING IN BED, HOB ELEVATED, WATCHING TV. IVF INFUSING WITHOUT DIFFICUTLY. PATIENT STATED HE WAS FEELING "SOME GASSY PAINS IN MY UPPER LEFT" BUT STATED IT WAS "UNCOMFORTABLE" AND "NOT PAINFUL". WATER REFRESHED AND 7UP GIVEN PER PATIENT REQUEST. NO OTHER NEEDS IDENTIFIED AT THIS TIME. CALL LIGHT AND BELONGINGS IN REACH.
--- NOTE | 2025-09-12 20:13 | NUR ---
VS AND I&O'S COMPLETED AND DOCUMENTED. ONE NEW SCHEDULED MEDICATION GIVEN PER PHYSICIAN ORDERS. PATIENT LAYING IN BED, AWAKE AND ALERT ABLE TO TAKE MEDICATIONS WITHOUT DIFFICULTY. IVF INFUSING WITHOUT DIFFICULTY. PATIENT DENIES NEEDS AT THIS TIME. CALL LIGHT IN REACH.
--- NOTE | 2025-09-12 20:22 | NUR ---
PATIENT ICE WATER REFRESHED AND SODA GIVEN PER PATIENT REQUEST. PATIENT UP TO BATHROOM 1PA FWW. STEADY GAIT. ROOM CLEANED, OUTPUT DOCUMENTED. PATIENT BACK TO BED, IVF INFUSING WITHOUT DIFFICULTY. NO OTHER NEEDS AT THIS TIME. CALL LIGHT IN REACH.
--- NOTE | 2025-09-12 21:45 | NUR ---
ASSESSMENT COMPLETED. SCHEDULED MEDICATIONS WINDSURFING INSTRUCTOR PER EMAR. PATIENT STATED HE HAD DISCOMFT IN HIS UPPER LEFT QUADRANT AND REQUESTED ASSISTANCE TO THE RESTROOM TO POSSIBLY RELEIVE GAS. PATIENT STBY ASSIST FWW, STEADY GAIT. STATED DISCOMFORT SOMEWHAT DISSOPATED WITH AMBULATION. PATIENT AMBULATED BCK TO BED, OUTPUT DOCUMETNED. IVF INFUSING WITHOUT DIFFICULTY. PATIENT DENIES FURTHER NEEDS AND EDUCATED TO USE CALL LIGHT IF DISCOMFORT BECOMES WORSE. CALL LIGHT AND BELONGING WITHIN REACH.
--- NOTE | 2025-09-12 23:45 | NUR ---
ROUNDED ON PATIENT, LAYING SUPINE IN BED RESTING WITH EYES CLOSED, RESPIRATTIONS EVEN AND UNLABORED. IVF INFUSING WITHOUT DIFFICULTY. PATIENT ON RA. NO NEEDS IDENTIFIED AT THIS TIME. CALL LIGHT IN REACH.
--- NOTE | 2025-09-13 00:25 | NUR ---
ANSWERED PATIENT CALL LIGHT FOR ASSISTANCE TO THE RESTROOM. PATIENT ABLE TO AMBULAT [facility] ASSIST. PATIENT STEADY ON FEET. OUTPUT DOCUMENTED. PATIENT BACK TO BED, NEW IVF BAG INFUSING PER ORDER WITHOUT DIFFICULTY. PATIENT STATES HE HAS NO MORE DISCOMFORT IN HIS UPPER LEFT QUADRANT. DENIES FURTHER NEEDS AT THIS TIME. CALL LIGHT IN REACH.
--- NOTE | 2025-09-13 02:37 | NUR ---
ROUNDED ON PATINET, LAYING SUPINE IN BED, HOB SLIGHTLY ELEVATED. IVF INFUSING WITHOUT DIFFICULTY. RESTING WITH EYES CLOSED, RESPIRATIONS EVEN AND UNLABORED ON ROOM AIR. NO NEEDS IDENTIFIED AT THIS TIME. CALL LIGHT IN REACH.
--- NOTE | 2025-09-13 03:45 | NUR ---
ROUNDED ON PATIENT, LAYING SUPINE IN BED, RESTING WTIH EYES CLOSED. RESPIRATIONS EVEN AND UNLABORED ON ROOM AIR. IVF INFUSING WITHOUT DIFFICULTY. NO NEEDS IDENTIFIED AT THIS TIME. CALL LIGHT IN REACH.
[2025-09-13 05:31] VITALS: BP 170/80
--- NOTE | 2025-09-13 05:34 | NUR ---
ASSISTED PT OOB TO BR, BACK TO BED. VITALS DONE. CALL LIGHT IN REACH, NO NEEDS AT THIS TIME.
--- NOTE | 2025-09-13 05:45 | NUR ---
VS COMPLETED AND DOCUMENTED. PATIENT RESTING IN BED, EASILY AROUSED WHEN SPOKEN TO. PATIENT DENIES ANY PAIN AT THIS TIME AND STATES AGAIN THAT THE UPPER LEFT QUADRANT DISCOMFORT WAS STILL MOT PRESENT AT THIS TIME. CALL LIGHT IN REACH.
--- NOTE | 2025-09-13 06:00 | NUR ---
PATIENT DENIES PAIN AND STATES THAT THE TENDERNESS IN HIS ABDOMEN HAS LESSENED AND HIS BMS'S ARE LESS FREQUENT. NO NEEDS AT THIS TIME, CALL LIGHT IN REACH.
--- NOTE | 2025-09-13 06:00 | NUR ---
ASSESSMENT COMPLETED. PATIENT RESTING SUPINE IN BED AWAKE. WARM BLANKET PROVIDED. IVF INFUSING WITHOUT DIFFICULTY. PATIENT DENIES PAIN OR NEEDS AT THIS TIME. CALL LIGHT IN REACH.
[2025-09-13] MEDS ORDERED: POTASSIUM CHLORIDE 10 MEQ TABCR PO ONE (06:15)
[2025-09-13 06:16] VITALS: BP 170/80
--- NOTE | 2025-09-13 06:54 | NUR ---
SCHEDULED MEDS GIVEN PER ORDER. PATIENT RESTING IN BED, DENIES FURTHER NEEDS AT THIS TIME. IVF INFUSING WITHOUT DIFFICUTY. CALL LIGHT IN REACH.
--- NOTE | 2025-09-13 07:30 | NUR ---
REPORT RECEIVED FROM CHIEF LOAD DISPATCHER RN'S COLLEEN. PATIENT IS LYING IN BED WITH EYES CLOSED AND RESPIRATIONS ARE EVEN AND UNLABORED. CALL LIGHT AND PERSONAL BELONGINGS ARE WITHIN REACH.
--- NOTE | 2025-09-13 08:20 | NUR ---
INTO SEE PATIENT. IMM LETTER COMPLETED. PATIENT WILL HAVE PICK HIM UP WHEN MEDICALLY READY FOR DISCHARGE. NO FUTHER CM NEEDS.
--- NOTE | 2025-09-13 08:30 | NUR ---
MORNING MEDICATIONS ADMINISTERED PER THE EMAR. PATIENT AMBULATED TO THE BATHROOM BY STAND BY ASSIST WITH FWW. PATIENT TOLERATED WELL. PATIENT THEN AMBULATED TO THE CHAIR AND IS EATING BREAKFAST. BED LINENS CHANGED AT THIS TIME. PATIENT STATED NO FURTHER NEEDS AT THIS TIME. CALL LIGHT AND PERSONAL BELONGINGS ARE WITHIN REACH. PATIENT EDUCATED ON USING THE CALL LIGHT WHEN HE NEEDS TO GET UP. DARIUS EXPRESSED UNDERSTANDING.
--- NOTE | 2025-09-13 09:26 | NUR ---
PT UP IN CHAIR, TRASH REMOVED ANDF TRASH REMOVED. ROOM CLEANED UP FOLLOWING PT AM AND ORAL CARE. PT SITTING IN CHAIR. COMPLETE LINEN CHANGE.
[2025-09-13 09:27] VITALS: BP 150/70
--- NOTE | 2025-09-13 09:28 | NUR ---
PATIENT IS SITTING IN THE CHAIR WITH EYES OPEN AND RESPIRATIONS ARE EVEN AND UNLABORED. PATIENT IS ON HIS PHONE. TV IS ON. CALL LIGHT AND PERSONAL BELONGINGS ARE WITHIN REACH.
--- NOTE | 2025-09-13 09:30 | NUR ---
PT UP SITTING IN CHAIR. PT REPORTED HE TAKES A MEDICATION TO LOWER BP - BUT HAS NOT HAD IT YET TODAY. PT REPORTED THIS TO RN. PT HAS NO VISITORS IN ROOM AND TV ON. CALL LIGHT WITHIN REACH AND FRESH ICE WATER WITHIN REACH.
[2025-09-13] MEDS ORDERED: VANCOMYCIN HCL125 MG PO (10:02)
[2025-09-13 10:20] VITALS: BP 150/70
[2025-09-13 10:34] LABS: GLOMERULAR FILTRATION RATE,EST 83.0 mL/min (>60); UREA NITROGEN 8.0 mg/dL (7-18)
--- NOTE | 2025-09-13 10:39 | NUR ---
OUTPATIENT THERAPY ORDERS FAXED TO [facility].
--- NOTE | 2025-09-13 10:41 | NUR ---
FULL ASSESSMENT COMPLETE AND DOCUMENTED IN THE CHART. IV SITE REMOVED WITH THE CATHETER TIP INTACT DUE TO DISCHARGE ORDER. THIS RN EDUCATED ON PLAN OF CARE AND DISCHARGING AROUND NOON. PATIENT EXPRESSED UNDERSTANDING AND THAT HIS IS COMING INTO TOWN TO PICK HIM UP. PATIENT STATED NO FURTHER NEEDS AT THIS TIME. CALL LIGHT AND PERSONAL BELONGINGS ARE WITHIN REACH.
--- NOTE | 2025-09-13 11:34 | NUR ---
PATIENT IS SITTING IN THE CHAIR WITH BILATERAL LOWER EXTREMITIES ELEVATED. PATIENT IS ON THEIR PHONE. TV IS ON. CALL LIGHT AND PERSONAL BELONGINGS ARE WITHIN REACH.
--- NOTE | 2025-09-13 12:19 | NUR ---
PATIENT IS SITTING IN THE CHAIR WITH BLE ELEVATED. PATIENT IS LOOKING ON HIS PHONE. PATIENT REPORTS BEING FINISHED WITH LUNCH. THIS RN DELEGATED TO ALECIA HYA TO ASSIST PATIENT WITH GETTING READY FOR DISCHARGE. CALL LIGHT AND PERSONAL BELONGINGS ARE WITHIN REACH.
[2025-09-13 12:28] VITALS: BP 148/69
--- NOTE | 2025-09-13 12:35 | NUR ---
PATIENT QUESTIONS REGARDING FLU AND COVID VACCINES WHILE TAKING AN ANTIBIOTIC. THIS RN CHECKED WITH PHARMACY. ULICES, PHARMACIST STATED HE CAN STILL RECEIVE THE VACCINES. PATIENT UPDATED AT THIS TIME. PATIENT AND STATED NO FURTHER NEEDS. ALECIA HAY TO TAKE OUT PATIENT AND HIS AT THIS TIME.
[2025-09-13 12:42] VITALS: BP 148/69
== END 2025-09-13 12:39 | disposition home or self-care (01) | DRG 373 ==
LOC: ED 13:35 → MS 19:28
PROVIDERS: Emergency Medicine; Internal Medicine; ADMIT Student in an Organized Health Care Education/Training Program; ATTEND Student in an Organized Health Care Education/Training Program
DX: A04.71 Enterocolitis due to Clostridium difficile, recurrent (principal); I10 Essential (primary) hypertension; F10.10 Alcohol abuse, uncomplicated; N40.0 Benign prostatic hyperplasia without lower urinary tract symptoms; F32.9 Major depressive disorder, single episode, unspecified; F41.1 Generalized anxiety disorder; Z96.643 Presence of artificial hip joint, bilateral; Z98.1 Arthrodesis status; Z79.899 Other long term (current) drug therapy; Z88.8 Allergy status to other drugs, medicaments and biological substances; Z87.19 Personal history of other diseases of the digestive system
CPT/HCPCS: 36415; 74177; 80048; 80053; 81001; 83605; 83735; 85025; 85651; 86140; 87045; 87046; 87324; 96361; 97161; 97165; 97530; A9270; G0378; J7030; J7121; Q0177; Q9967